=== PATIENT | female | born 1990 | race Caucasian/White ===

== ENCOUNTER 2018-04-29 17:27 | Emergency (ER) | payer BC ==
[2018-04-29 17:39] VITALS: RESP 18
[2018-04-29 18:16] LABS: Basophils % (A) 0 %; Eosinophils # (A) 0.2 k/uL (0-0.7); Eosinophils % (A) 2 %; HCT 39.4 % (34.0-46.0); Lymphocytes # (A) 3.1 k/uL (1.0-4.8); Lymphocytes % (A) 29 %; MCH 28.9 pg (25.0-35.0); MCHC 33.1 g/dL (31.0-37.0); MCV 87.4 fL (80.0-100.0); Mean Platelet Volume 7.3; Monocytes # (A) 0.7 k/uL (0-1.0); Monocytes % (A) 7 %; Neutrophils # (A) 6.5 k/uL (1.3-7.7); Neutrophils % (A) 59 %; Platelet Count 335 k/uL (150-450); RBC 4.51 m/uL (3.80-5.40); RDW 12.6 % (11.5-15.5); WBC 10.9 k/uL (3.8-10.6)
[2018-04-29 18:17] LABS: Appearance,Urine Clear (Clear); Bilirubin,Urine Negative (Negative); Blood,Urine Negative (Negative); Color,Urine Yellow; Glucose,Urine (UA) 4+ (Negative); Ketones,Urine Negative (Negative); Leukocyte Esterase,Urine Negative (Negative); Nitrite,Urine Negative (Negative); Protein,Urine Trace (Negative); Specific Gravity,Urine 1.027 (1.001-1.035); Urobilinogen,Urine <2.0 mg/dL (<2.0)
[2018-04-29 18:25] LABS: ALT 20 U/L (9-52); AST 17 U/L (14-36); Albumin 4.4 g/dL (3.5-5.0); Alkaline Phosphatase 36 U/L (38-126); Anion Gap 12 mmol/L; Blood Urea Nitrogen 13 mg/dL (7-17); Calcium 9.6 mg/dL (8.4-10.2); Carbon Dioxide 26 mmol/L (22-30); Chloride 103 mmol/L (98-107); Glucose 208 mg/dL (74-99); Sodium 141 mmol/L (137-145); Total Bilirubin 0.7 mg/dL (0.2-1.3); Total Protein 7.8 g/dL (6.3-8.2)
[2018-04-29] MEDS ORDERED: SODIUM CHLORIDE 0.9% 1,000 ML IV ONE (19:46)
--- NOTE | 2018-04-29 20:34 | ED ---
Abdominal Pain HPI - General Chief Complaint: Abdominal Pain Stated Complaint: Abd.pain Time Seen by Provider: 04/29/18 19:14 Source: patient, RN notes reviewed, old records reviewed Mode of arrival: ambulatory Limitations: no limitations - History of Present Illness Initial Comments: This is a 28 year old female, presents to ED with left lower abdominal pain. Patient reports she feel bloated and distending. She reports some pain with bowel movements. She has a history of Right ovarian cancer with Right oopherectomy 6 wears ago. She reports she had an US 2 weeks ago, which showed left ovarian cyst. She follows with her OBGYN oncologist on Sunday. She reports that with increased pain, she called OB, and OB wants CT abdomen with contrast to check for recurrent cancer. - Related Data Home Medications Medication Instructions Recorded Confirmed ALPRAZolam [Xanax] 0.5 mg PO BID PRN 04/29/18 04/29/18 Cetirizine HCl [Zyrtec] 10 mg PO DAILY 04/29/18 04/29/18 Empagliflozin [Jardiance] 10 mg PO DAILY 04/29/18 04/29/18 Norgestimate-Ethinyl Estradiol 1 tab PO DAILY 04/29/18 04/29/18 [Tri-Sprintec Tablet] hydrOXYzine HCL [Atarax] 10 mg PO HS PRN 04/29/18 04/29/18 metFORMIN HCL ER [Glucophage Xr] 1,000 mg PO AC-BID 04/29/18 04/29/18 Previous Rx's Medication Instructions Recorded Acetaminophen with Codeine 1 tab PO Q6H PRN 3 Days #12 tab 04/29/18 [Tylenol w/codeine #3] Allergies Allergy/AdvReac Type Severity Reaction Status Date / Time latex Allergy Rash/Hives Verified 04/29/18 20:27 prednisone AdvReac Hallucinati Verified 04/29/18 20:27 ons Review of Systems ROS Statement: Those systems with pertinent positive or pertinent negative responses have been documented in the HPI. ROS Other: All systems not noted in ROS Statement are negative. Past Medical History Past Medical History: Diabetes Mellitus Additional Past Medical History / Comment(s): ovarian cancer History of Any Multi-Drug Resistant Organisms: None Reported Additional Past Surgical History / Comment(s): right ovaries removed, mediport placed and removed Past Psychological History: No Psychological Hx Reported Smoking Status: Never smoker Past Alcohol Use History: Rare Past Drug Use History: None Reported General Exam - General Exam Comments Initial Comments: This is a well appearing 28 year old female, no distress. Limitations: no limitations General appearance: alert, in no apparent distress Head exam: Present: atraumatic, normocephalic, normal inspection Eye exam: Present: normal appearance, PERRL, EOMI. Absent: scleral icterus, conjunctival injection, periorbital swelling ENT exam: Present: normal exam, mucous membranes moist Neck exam: Present: normal inspection. Absent: tenderness, meningismus, lymphadenopathy Respiratory exam: Present: normal lung sounds bilaterally. Absent: respiratory distress, wheezes, rales, rhonchi, stridor Cardiovascular Exam: Present: regular rate, normal rhythm, normal heart sounds. Absent: systolic murmur, diastolic murmur, rubs, gallop, clicks GI/Abdominal exam: Present: soft, tenderness (Left lower quadrant tendernes. ), normal bowel sounds. Absent: distended, guarding, rebound, rigid Extremities exam: Present: normal inspection, full ROM, normal capillary refill. Absent: tenderness, pedal edema, joint swelling, calf tenderness Back exam: Present: normal inspection Neurological exam: Present: alert, oriented X3, CN II-XII intact Psychiatric exam: Present: normal affect, normal mood Skin exam: Present: warm, dry, intact, normal color. Absent: rash Course Vital Signs 04/29/18 04/29/18 04/29/18 17:35 20:03 21:43 Temperature 98.3 F 98 F Pulse Rate 85 87 88 Respiratory 18 18 18 Rate Blood Pressure 151/94 162/99 145/91 O2 Sat by Pulse 100 99 98 Oximetry Medical Decision Making - Medical Decision Making 28 year old female with history of right sided ovarian cancer with hisrory of oophorectomy, presents with distension and left sided abdominal painfor 2 weeks. Lab work is unremarkable. Discussed CT abdomen and pelvis to be ompleted , and the CT shows enlarged pelvic lymphnode, and free fluid in the pelvis. Recurrent tumor can be expected. Disucssed results with patient. Discussed prompt follow up with OBGYN Oncologist. She has an appt on Sunday. DC with short course of pain medication. Discussed return parameters. - Lab Data Result diagrams: 04/29/18 17:55 11/26/18 17:55 Lab Results 04/29/18 04/29/18 04/29/18 Range/Units 17:55 17:55 17:55 WBC 10.9 H (3.8-10.6) k/uL RBC 4.51 (3.80-5.40) m/uL Hgb 13.0 (11.4-16.0) gm/dL Hct 39.4 (34.0-46.0) % MCV 87.4 (80.0-100.0) fL MCH 28.9 (25.0-35.0) pg MCHC 33.1 (31.0-37.0) g/dL RDW 12.6 (11.5-15.5) % Plt Count 335 (150-450) k/uL Neutrophils % 59 % Lymphocytes % 29 % Monocytes % 7 % Eosinophils % 2 % Basophils % 0 % Neutrophils # 6.5 (1.3-7.7) k/uL Lymphocytes # 3.1 (1.0-4.8) k/uL Monocytes # 0.7 (0-1.0) k/uL Eosinophils # 0.2 (0-0.7) k/uL Basophils # 0.0 (0-0.2) k/uL Sodium 141 (137-145) mmol/L Potassium 4.0 (3.5-5.1) mmol/L Chloride 103 (98-107) mmol/L Carbon Dioxide 26 (22-30) mmol/L Anion Gap 12 mmol/L BUN 13 (7-17) mg/dL Creatinine 0.48 L (0.52-1.04) mg/dL Est GFR (CKD-EPI)AfAm >90 (>60 ml/min/1.73 sqM) Est GFR (CKD-EPI)NonAf >90 (>60 ml/min/1.73 sqM) Glucose 208 H (74-99) mg/dL Calcium 9.6 (8.4-10.2) mg/dL Total Bilirubin 0.7 (0.2-1.3) mg/dL AST 17 (14-36) U/L ALT 20 (9-52) U/L Alkaline Phosphatase 36 L (38-126) U/L Total Protein 7.8 (6.3-8.2) g/dL Albumin 4.4 (3.5-5.0) g/dL CA 125 Antigen (0.0-30.1) U/mL Urine Color Yellow Urine Appearance Clear (Clear) Urine pH 7.0 (5.0-8.0) Ur Specific Daphne 1.027 (1.001-1.035) Urine Protein Trace H (Negative) Urine Glucose (UA) 4+ H (Negative) Urine Ketones Negative (Negative) Urine Blood Negative (Negative) Urine Nitrite Negative (Negative) Urine Bilirubin Negative (Negative) Urine Urobilinogen <2.0 (<2.0) mg/dL Ur Leukocyte Esterase Negative (Negative) Urine HCG, Qual (Not Detectd) 04/29/18 04/29/18 Range/Units 17:55 19:20 WBC (3.8-10.6) k/uL RBC (3.80-5.40) m/uL Hgb (11.4-16.0) gm/dL Hct (34.0-46.0) % MCV (80.0-100.0) fL MCH (25.0-35.0) pg MCHC (31.0-37.0) g/dL RDW (11.5-15.5) % Plt Count (150-450) k/uL Neutrophils % % Lymphocytes % % Monocytes % % Eosinophils % % Basophils % % Neutrophils # (1.3-7.7) k/uL Lymphocytes # (1.0-4.8) k/uL Monocytes # (0-1.0) k/uL Eosinophils # (0-0.7) k/uL Basophils # (0-0.2) k/uL Sodium (137-145) mmol/L Potassium (3.5-5.1) mmol/L Chloride (98-107) mmol/L Carbon Dioxide (22-30) mmol/L Anion Gap mmol/L BUN (7-17) mg/dL Creatinine (0.52-1.04) mg/dL Est GFR (CKD-EPI)AfAm (>60 ml/min/1.73 sqM) Est GFR (CKD-EPI)NonAf (>60 ml/min/1.73 sqM) Glucose (74-99) mg/dL Calcium (8.4-10.2) mg/dL Total Bilirubin (0.2-1.3) mg/dL AST (14-36) U/L ALT (9-52) U/L Alkaline Phosphatase (38-126) U/L Total Protein (6.3-8.2) g/dL Albumin (3.5-5.0) g/dL CA 125 Antigen 10.0 (0.0-30.1) U/mL Urine Color Urine Appearance (Clear) Urine pH (5.0-8.0) Ur Specific Daphne (1.001-1.035) Urine Protein (Negative) Urine Glucose (UA) (Negative) Urine Ketones (Negative) Urine Blood (Negative) Urine Nitrite (Negative) Urine Bilirubin (Negative) Urine Urobilinogen (<2.0) mg/dL Ur Leukocyte Esterase (Negative) Urine HCG, Qual Not Detected (Not Detectd) - Radiology Data Radiology results: report reviewed Compared old exam there is now left-sided enlarged. The aortic lymph node. There is mild free fluid in the pelvis. Recurrent tumor should be considered. Normal appendix. Disposition Clinical Impression: Left sided abdominal pain, Left pelvic adnexal fluid collection, Lymph node enlargement Disposition: HOME SELF-CARE Condition: Good Instructions: Abdominal Pain (ED) Additional Instructions: Patient advised to follow-up with primary care physician and oncologist on Sunday. Take The pain medicine as prescribed. Return to emergency department if any alarming signs or symptoms occur. Prescriptions: Acetaminophen with Codeine [Tylenol w/codeine #3] 1 tab PO Q6H PRN 3 Days #12 tab PRN Reason: Pain Is patient prescribed a controlled substance at d/c from ED?: Yes When asked, does pt state using other controlled substances?: Yes If prescribed controlled substance>3 days was MAPS reviewed?: Prescribed <3 Days If opioid is for acute pain is fill amount 7 days or less?: Yes If Rx opioid, was Start Talking consent form obtained?: Yes Referrals: Bakari Villalta MD [Primary Care Provider] - 1-2 days Time of Disposition: 21:15
--- NOTE | 2018-04-29 20:51 | CT ---
EXAMINATION TYPE: CT abdomen pelvis w con DATE OF EXAM: 04/29/2018 COMPARISON: 07/24/2013 HISTORY: LT OVARIAN CYST. HX OVARIAN CANCER ABDOMEN PAIN X2 WEEKS CT DLP: 1002.3 mGycm Automated exposure control for dose reduction was used. TECHNIQUE: Helical acquisition of images was performed from the lung bases through the pelvis. CONTRAST: Performed without Oral Contrast and with IV Contrast, patient injected with 100 mL of Isovue 300. FINDINGS: Lung bases are clear. There is no pleural effusion. Heart size is normal. There is no pericardial eff usion. Liver spleen pancreas appear normal. Gallbladder is contracted. There is no adrenal mass. Kidneys show satisfactory contrast opacification. There is no hydronephrosi s. There is 13 mm left side para-aortic lymph node. There is no mesenteric edema or adenopathy. Appen gareth appears normal. There are surgical clips in the retroperitoneum. Bladder distends smoothly. Uteru s is anteverted. There is mild free fluid in the cul-de-sac. There is no inguinal hernia. There are s urgical clips in the right adnexal region consistent with right-sided oophorectomy. The lumbar spine is intact. Bony pelvis is intact. IMPRESSION: COMPARED TO OLD EXAM THERE IS A NEW LEFT SIDE ENLARGED PARA-AORTIC LYMPH NODE. THERE IS NEW MILD FREE FLUID IN THE PELVIS. RECURRENT TUMOR SHOULD BE CONSIDERED. NORMAL APPENDIX.
[2018-04-29] MEDS ORDERED: KETOROLAC 30 MG/ML 1 ML VIAL IVP STA (21:13)
[2018-04-29] MEDS ORDERED: MORPHINE SULFATE 4 MG/ML SYRINGE IVP STA (21:13)
[2018-04-29 21:44] VITALS: BP 145/91; PULSE 88; TEMP 98
== END 2018-04-29 21:43 | disposition home or self-care (01) ==
LOC: EC 17:27
DX: R59.0 Localized enlarged lymph nodes (principal); R10.30 Lower abdominal pain, unspecified; R14.0 Abdominal distension (gaseous); E11.9 Type 2 diabetes mellitus without complications; Z85.43 Personal history of malignant neoplasm of ovary; Z90.721 Acquired absence of ovaries, unilateral; Z79.3 Long term (current) use of hormonal contraceptives; Z79.84 Long term (current) use of oral hypoglycemic drugs; Z79.899 Other long term (current) drug therapy; Z88.8 Allergy status to other drugs, medicaments and biological substances; Z91.040 Latex allergy status
CPT/HCPCS: 36415; 80053; 86304; 85025; 81003; 81025; 74177; 99284; 96374; 96375; 96361; J2270; J1885; Q9967

== ENCOUNTER 2018-05-31 04:53 | Inpatient (IN) | payer BC ==
[2018-05-31] MEDS ORDERED: SODIUM CHLORIDE 0.9% 1,000 ML IV STA (07:16)
[2018-05-31] MEDS ORDERED: HEPARIN SODIUM,PORCINE 5,000 UNIT/ML 1 ML VIAL IV PRN (07:17)
[2018-05-31] MEDS ORDERED: HEPARIN SODIUM,PORCINE 10,000 UNIT/ML 1 ML VIAL IV ONE (07:17)
[2018-05-31] MEDS ORDERED: HEPARIN SOD,PORK IN 0.45% NACL 25,000 UNIT in 0.45% NACL 1 250ML.BAG IV SCH (07:30)
[2018-05-31 07:38] LABS: Basophils # (A) 0.1 k/uL (0-0.2); Basophils % (A) 1 %; Eosinophils # (A) 0.6 k/uL (0-0.7); Eosinophils % (A) 3 %; HCT 32.1 % (34.0-46.0); Hypochromasia Slight; Lymphocytes # (A) 1.2 k/uL (1.0-4.8); Lymphocytes % (A) 6 %; MCH 27.9 pg (25.0-35.0); MCHC 30.6 g/dL (31.0-37.0); MCV 91.3 fL (80.0-100.0); Mean Platelet Volume 7.2; Monocytes # (A) 1.2 k/uL (0-1.0); Monocytes % (A) 6 %; Neutrophils # (A) 17.7 k/uL (1.3-7.7); Neutrophils % (A) 84 %; Platelet Count 548 k/uL (150-450); RBC 3.52 m/uL (3.80-5.40); RDW 12.8 % (11.5-15.5); WBC 21.2 k/uL (3.8-10.6)
[2018-05-31 07:41] LABS: HGB 9.8 gm/dL (11.4-16.0); Partial Thromboplastin Time 24.1 sec (22.0-30.0); Prothrombin Time 10.5 sec (9.0-12.0)
--- NOTE | 2018-05-31 07:43 | ED ---
General Adult HPI - General Chief complaint: Abdominal Pain Stated complaint: abd pain Source: patient Mode of arrival: ambulatory Limitations: no limitations - History of Present Illness Initial comments: Dictation was produced using [employer] dictation software. please excuse any grammatical, word or spelling errors. Chief Complaint: 20-year-old female past medical history of diabetes, ovarian cancer presents with pleuritic left chest pain status post laparoscopic surgery with tumor excision. History of Present Illness: Patient is 28-year-old female who presents with left -sided chest pain. Patient states that her pain started yesterday. It is sharp and especially worse with deep inspiration. Patient feels mildly diaphoretic. Patient had recent laparoscopic abdominal surgery for [facility]. Patient is on prophylactic thromboembolic medications. Patient states that this pain is different from her initial surgical pain. She states that the surgical pain was more localized to her abdomen. This pain is new. Patient has a history of blood clots. The ROS documented in this emergency department record has been reviewed and confirmed by me. Those systems with pertinent positive or negative responses have been documented in the HPI. All other systems are other negative and/or noncontributory. - Related Data Home Medications Medication Instructions Recorded Confirmed Empagliflozin [Jardiance] 10 mg PO DAILY 04/29/18 05/31/18 metFORMIN HCL ER [Glucophage Xr] 1,000 mg PO AC-BID 04/29/18 05/31/18 Docusate [Colace] 100 mg PO DAILY 05/31/18 05/31/18 Ibuprofen [Motrin] 600 mg PO Q6HR PRN 05/31/18 05/31/18 oxyCODONE HCL [OxyIR] 5 mg PO Q4H PRN 05/31/18 05/31/18 Previous Rx's Medication Instructions Recorded Acetaminophen with Codeine 1 tab PO Q6H PRN 3 Days #12 tab 04/29/18 [Tylenol w/codeine #3] Allergies Allergy/AdvReac Type Severity Reaction Status Date / Time latex Allergy Rash/Hives Verified 05/31/18 07:11 prednisone AdvReac Hallucinati Verified 05/31/18 07:11 ons Review of Systems ROS Statement: Those systems with pertinent positive or pertinent negative responses have been documented in the HPI. ROS Other: All systems not noted in ROS Statement are negative. Past Medical History Past Medical History: Diabetes Mellitus Additional Past Medical History / Comment(s): ovarian cancer History of Any Multi-Drug Resistant Organisms: None Reported Additional Past Surgical History / Comment(s): right ovaries removed, mediport placed and removed Past Psychological History: No Psychological Hx Reported Smoking Status: Never smoker Past Alcohol Use History: Rare Past Drug Use History: None Reported General Exam - General Exam Comments Initial Comments: PHYSICAL EXAM: General Impression: Alert and oriented x3, acute distress secondary to pain HEENT: Normocephalic atraumatic, extra-ocular movements intact, pupils equal and reactive to light bilaterally, mucous membranes moist. Cardiovascular: Heart regular rate and rhythm, S1&S2 audible, no murmurs, rubs or gallops Chest: Lungs clear to auscultation bilaterally, no rhonchi, no wheeze, no rales Abdomen: Bowel sounds present, abdomen soft, non-tender, non-distended, no organomegaly Musculoskeletal: Pulses present and equal in all extremities, no peripheral edema Motor: Power 5/5 bilaterally, no focal deficits noted Neurological: CN II-XII grossly intact, no focal motor or sensory deficits noted Skin: Intact with no visualized rashes Limitations: no limitations Course Vital Signs 05/31/18 05/31/18 05/31/18 04:55 07:19 08:00 Temperature 97.6 F Pulse Rate 121 H 128 H 126 H Respiratory 20 30 H 28 H Rate Blood Pressure 143/80 157/87 161/91 O2 Sat by Pulse 95 92 L 97 Oximetry 05/31/18 05/31/18 05/31/18 08:30 10:00 10:30 Temperature Pulse Rate 130 H 131 H 128 H Respiratory 28 H 20 18 Rate Blood Pressure 159/86 145/80 135/73 O2 Sat by Pulse 98 97 96 Oximetry Medical Decision Making - Medical Decision Making ED course: 28-year-old female with past medical history of ovarian cancer, diabetes status post exhortatory laparotomy with tumor excision of ovarian cancer presents with chief complaint of pleuritic chest pain. Vital signs upon arrival shows heart rate of 121, worse vital signs within acceptable limits. Patient appears comfortable. Given recent history of surgery and medical history of ovarian cancer there is strong clinical suspicion of thromboembolic disease. Patient started on heparin. CT was performed without any clear evidence of pulmonary embolus. Laboratory evaluation shows leukocytosis of 21.2. Hemoglobin 9.8. Thrombocytosis of 548. Coag panel unremarkable. Metabolic panel shows 90 is a 1.5, elevated liver enzymes. CT angios of the chest shows interstitial edema, hematogenous metastatic disease with scattered bilateral pulmonary nodules noted. These appear increased in size since CT 1 month earlier suggest aggressive disease. There is new market hepatomegaly. CT of the abdomen and pelvis was obtained for concerns about intra-abdominal infection secondary to recent surgery. There is worsening ascites. There is no suspicious left pelvic mass. There is no retroperitone there are also findings of partial obstruction or adhesion. EKG shows sinus tachycardia. Given elevated leukocytosis and thrombocytosis. Is concerned of intra-abdominal infection. Patient started on vancomycin and Zosyn. Patient has significant abdominal and chest pain. Patient is given IV analgesics. Given patient's medical history and clinical presentation I believe that patient should be admitted to the hospital. Discussed patient case with Dr. Villalta who is willing to accept admission. I believe the majority of patient's symptoms are secondary to increased tumor burden. Patient given intravenous fluids and magnesium as well. EKG interpretation: Ventricular rate 125, sinus tachycardia,. Interval 126, QS 82, QTC 395 there appears to be some nonspecific EKG changes in the inferior leads. An T-wave inversion in lead 3.. No ID prolongation, no QTC prolongation , no ST or T-wave changes noted. - Lab Data Result diagrams: 05/31/18 06:59 05/31/18 06:59 Lab Results 05/31/18 05/31/18 05/31/18 Range/Units 06:59 06:59 06:59 WBC 21.2 H (3.8-10.6) k/uL RBC 3.52 L (3.80-5.40) m/uL Hgb 9.8 L D (11.4-16.0) gm/dL Hct 32.1 L (34.0-46.0) % MCV 91.3 (80.0-100.0) fL MCH 27.9 (25.0-35.0) pg MCHC 30.6 L (31.0-37.0) g/dL RDW 12.8 (11.5-15.5) % Plt Count 548 H (150-450) k/uL Neutrophils % 84 % Lymphocytes % 6 % Monocytes % 6 % Eosinophils % 3 % Basophils % 1 % Neutrophils # 17.7 H (1.3-7.7) k/uL Lymphocytes # 1.2 (1.0-4.8) k/uL Monocytes # 1.2 H (0-1.0) k/uL Eosinophils # 0.6 (0-0.7) k/uL Basophils # 0.1 (0-0.2) k/uL Hypochromasia Slight PT (9.0-12.0) sec INR (<1.2) APTT (22.0-30.0) sec Sodium 140 (137-145) mmol/L Potassium 4.1 (3.5-5.1) mmol/L Chloride 104 (98-107) mmol/L Carbon Dioxide 25 (22-30) mmol/L Anion Gap 11 mmol/L BUN 11 (7-17) mg/dL Creatinine 0.53 (0.52-1.04) mg/dL Est GFR (CKD-EPI)AfAm >90 (>60 ml/min/1.73 sqM) Est GFR (CKD-EPI)NonAf >90 (>60 ml/min/1.73 sqM) Glucose 143 H (74-99) mg/dL Calcium 11.2 H (8.4-10.2) mg/dL Magnesium 1.5 L (1.6-2.3) mg/dL Total Bilirubin 3.7 H (0.2-1.3) mg/dL AST 172 H (14-36) U/L ALT 59 H (9-52) U/L Alkaline Phosphatase 810 H (38-126) U/L Total Creatine Kinase 280 H (30-135) U/L CK-MB (CK-2) 17.5 H (0.0-2.4) ng/mL CK-MB (CK-2) Rel Index 6.3 Troponin I <0.012 (0.000-0.034) ng/mL Total Protein 6.7 (6.3-8.2) g/dL Albumin 3.3 L (3.5-5.0) g/dL 05/31/18 Range/Units 06:59 WBC (3.8-10.6) k/uL RBC (3.80-5.40) m/uL Hgb (11.4-16.0) gm/dL Hct (34.0-46.0) % MCV (80.0-100.0) fL MCH (25.0-35.0) pg MCHC (31.0-37.0) g/dL RDW (11.5-15.5) % Plt Count (150-450) k/uL Neutrophils % % Lymphocytes % % Monocytes % % Eosinophils % % Basophils % % Neutrophils # (1.3-7.7) k/uL Lymphocytes # (1.0-4.8) k/uL Monocytes # (0-1.0) k/uL Eosinophils # (0-0.7) k/uL Basophils # (0-0.2) k/uL Hypochromasia PT 10.5 (9.0-12.0) sec INR 1.0 (<1.2) APTT 24.1 (22.0-30.0) sec Sodium (137-145) mmol/L Potassium (3.5-5.1) mmol/L Chloride (98-107) mmol/L Carbon Dioxide (22-30) mmol/L Anion Gap mmol/L BUN (7-17) mg/dL Creatinine (0.52-1.04) mg/dL Est GFR (CKD-EPI)AfAm (>60 ml/min/1.73 sqM) Est GFR (CKD-EPI)NonAf (>60 ml/min/1.73 sqM) Glucose (74-99) mg/dL Calcium (8.4-10.2) mg/dL Magnesium (1.6-2.3) mg/dL Total Bilirubin (0.2-1.3) mg/dL AST (14-36) U/L ALT (9-52) U/L Alkaline Phosphatase (38-126) U/L Total Creatine Kinase (30-135) U/L CK-MB (CK-2) (0.0-2.4) ng/mL CK-MB (CK-2) Rel Index Troponin I (0.000-0.034) ng/mL Total Protein (6.3-8.2) g/dL Albumin (3.5-5.0) g/dL Disposition Clinical Impression: Abdominal pain Disposition: ADMITTED IP TO THIS [facility] Condition: Fair Referrals: Bakari Villalta MD [Primary Care Provider] - 1-2 days Decision Time: 11:17
[2018-05-31 07:45] LABS: ALT 59 U/L (9-52); AST 172 U/L (14-36); Albumin 3.3 g/dL (3.5-5.0); Alkaline Phosphatase 810 U/L (38-126); Anion Gap 11 mmol/L; Blood Urea Nitrogen 11 mg/dL (7-17); Calcium 11.2 mg/dL (8.4-10.2); Carbon Dioxide 25 mmol/L (22-30); Chloride 104 mmol/L (98-107); Glucose 143 mg/dL (74-99); Magnesium 1.5 mg/dL (1.6-2.3); Potassium 4.1 mmol/L (3.5-5.1); Sodium 140 mmol/L (137-145); Total Bilirubin 3.7 mg/dL (0.2-1.3); Total Protein 6.7 g/dL (6.3-8.2)
[2018-05-31] MEDS ORDERED: MORPHINE SULFATE 4 MG/ML SYRINGE IVP STA (07:51)
[2018-05-31 07:57] LABS: Creatine Kinase 280 U/L (30-135)
--- NOTE | 2018-05-31 07:57 | XR ---
EXAMINATION TYPE: XR chest 1V portable DATE OF EXAM: 05/31/2018 COMPARISON: Chest x-ray February 18, 2014. HISTORY: Newly diagnosed ovarian cancer with left flank pain. TECHNIQUE: Single frontal view of the chest is obtained. FINDINGS: There is diminished inspiration with central vascular congestion. No pleural effusion or p neumothorax is seen bilaterally. Cardiac silhouette size is upper limits of normal. The osseous stru ctures are intact. IMPRESSION: Diminished inspiration with new mild to moderate central vascular congestion.
--- NOTE | 2018-05-31 08:08 | CT ---
EXAMINATION TYPE: CT angio chest DATE OF EXAM: 05/31/2018 COMPARISON: Prior CT chest July 24, 2013. Prior CT abdomen and pelvis April 29, 2018 HISTORY: Sharp left-sided pain, newly diagnosed ovarian cancer. CT DLP: 251.1 mGycm. Automated Exposure Control for Dose Reduction was Utilized. CONTRAST: CTA scan of the thorax is performed with IV Contrast, patient injected with 69 mL of Isovue 370, pulm onary embolism protocol. MIP Images are created on CT scanner and reviewed. FINDINGS: LUNGS: There is new mild alveolar and interstitial edema bilaterally. There are scattered bilateral p ulmonary nodules involving upper and lower lungs with larger nodules seen in the lung bases. For refe rence roughly 8-12 nodules are seen on axial image 63 measuring up to 10 mm long axis centrally right lung and 11 mm long axis subpleural region left lung. In retrospect they were present on recent CT a bdomen pelvis study and are significantly enlarging in size. There is dependent atelectasis and/or co nsolidation in both bases near diaphragm MEDIASTINUM: There is suboptimal bolus with heterogeneity and near equal contrast in right and left h eart systems but no convincing CT evidence for acute pulmonary embolism. There are enlarged right hi lar confluent lymph nodes near axial image 57 for reference enlarged left hilar lymph nodes are seen. There is enlarged prevascular mass or lymph node measuring 1.8 x 1.4 cm axial image 34. There is sub carinal adenopathy axial image 44.. No cardiomegaly or pericardial effusion is seen. OTHER: Liver is enlarged in size occupying entire upper abdomen increased in size from recent CT, and is overall markedly heterogeneous in appearance. On localizer appears to occupy nearly entire visual ized right abdomen. Slight S-shaped scoliotic curvature is seen. IMPRESSION: 1. Suboptimal study without CT evidence for acute pulmonary embolism. 2. New mild alveolar and interstitial edema, consider fluid overload state. 3. Hematogenous metastatic disease with scattered bilateral pulmonary nodules noted, significant incr ease in size from recent CT one month earlier suggests aggressive disease. Thoracic metastatic adenop athy noted. 4. New marked hepatomegaly may reflect response to chemotherapy. Correlate clinically.
[2018-05-31 08:10] LABS: Creatine Kinase MB 17.5 ng/mL (0.0-2.4); Troponin I <0.012 ng/mL (0.000-0.034)
[2018-05-31] MEDS ORDERED: HYDROmorphone 1 MG/ML 1 ML SYRINGE IVP STA (08:56)
--- NOTE | 2018-05-31 09:30 | CT ---
EXAMINATION TYPE: CT abdomen pelvis w con DATE OF EXAM: 05/31/2018 HISTORY: Pain CT DLP: 616.5mGycm Automated Exposure Control for Dose Reduction was Utilized. CONTRAST: CT scan of the abdomen and pelvis is performed without oral but with IV Contrast, patient injected wi th 80 mL of Isovue 300. COMPARISON: CT abdomen and pelvis from just over one month ago. FINDINGS: LUNG BASES: Please refer to same day CT chest for complete details on the lung bases. LIVER/GB: Liver is markedly heterogeneous appearance and enlarged in size from recent CT, multiple he terogeneous hypodense predominantly subcentimeter lesions are felt present, diffuse metastatic diseas e is suspected. This can be confirmed with imaging guided random biopsy if desired.. PANCREAS: No significant abnormality is seen. SPLEEN: No significant abnormality is seen. ADRENALS: No significant abnormality is seen. KIDNEYS: Symmetric excretion from both kidneys consistent with delayed phased imaging. BOWEL: There are some prominent fecal filled small bowel loops in the midabdomen. Overall there is no suspicious small or large bowel dilatation. Suspect partial obstruction due to adhesions. UTERUS/ADNEXA: Anteverted uterus is redemonstrated. There is interval heterogeneous enlargement of le ft ovary axial image 76, and can be further evaluated with pelvic ultrasound desired. Cannot exclude mass or neoplasm involvement at this level. Surgical clips right axillary are redemonstrated. Moderat e amount of free fluid in pelvic cul-de-sac is increased from prior study axial image 82. Small amoun t of fluid extends anterior superior to the bladder near axial image 72 on current study LYMPH NODES: Surgical clips extend along the right iliac vessels in the pelvis. There is redemonstrat ion of prominent but subcentimeter retroperitoneal lymph nodes enlarged in size from prior exam. Ther e are 2 enlarged left periaortic lymph nodes on current study increase in size from prior study. For reference posterior lymph node measures 1.7 x 1.2 cm on axial image 53 and superior lateral lymph nod e measures 1.4 x 1.3 cm axial image 51. OSSEOUS STRUCTURES: No significant abnormality is seen. OTHER: There is vertical scar marker over the midline of the anterior abdomen above and below umbilic us redemonstrated. IMPRESSION: 1. Worsening small amount of inferior abdominal and pelvic ascites. New suspicious left pelvic mass p ossible adenopathy or left ovarian neoplasm. New suspicious retroperitoneal adenopathy. New hepatome mariah with suspected diffuse hepatic metastatic disease. Overall nonobstructive bowel gas pattern. [place] pect partial obstruction or adhesions involving mid abdominal bowel loops near scar.
[2018-05-31] MEDS ORDERED: PIPERACILLIN-TAZOBACTAM 3.375 GM in SODIUM CHLORIDE 0.9% 100 ML IVPB STA (10:23)
[2018-05-31] MEDS ORDERED: VANCOMYCIN 1,500 MG in SODIUM CHLORIDE 0.9% 250 ML IVPB STA (10:23)
[2018-05-31] MEDS ORDERED: NALOXONE 0.4 MG/ML 1 ML VIAL IV PRN (11:18)
[2018-05-31] MEDS ORDERED: HEPARIN SODIUM,PORCINE 5,000 UNIT/ML 1 ML VIAL SQ SCH (11:30)
[2018-05-31] MEDS: SODIUM CHLORIDE 0.9% 1,000 ML IV SCH ×2 (11:53→23:52)
[2018-05-31] MEDS: MAGNESIUM SULFATE-D5W PMX 1 GM in DEXTROSE/WATER 1 100ML.BAG IVPB SCH ×2 (11:55→14:54)
[2018-05-31 12:36] LABS: Glucose,Whole Blood 116 mg/dL (75-99)
[2018-05-31] MEDS: HYDROmorphone 2 MG TAB PO PRN ×2 (12:41→15:52)
[2018-05-31] MEDS ORDERED: VANCOMYCIN IV PER PHARMACY 1 EACH MISC MISCELLANE ONE (13:00)
[2018-05-31] MEDS: HYDROcodone/APAP 5-325MG 1 EACH TAB PO PRN ×2 (14:54→19:07)
[2018-05-31 15:42] LABS: Appearance,Urine Clear (Clear); Bacteria,Urine Occasional /hpf; Bilirubin,Urine Negative (Negative); Blood,Urine Trace (Negative); Color,Urine Yellow; Glucose,Urine (UA) 4+ (Negative); Granular Casts,Urine 1 /lpf (0); Ketones,Urine 1+ (Negative); Leukocyte Esterase,Urine Negative (Negative); Mucus,Urine Rare /hpf; Nitrite,Urine Negative (Negative); Protein,Urine Trace (Negative); RBC,Urine 7 /hpf (0-5); Specific Gravity,Urine 1.045 (1.001-1.035); Squamous Epithelial Cell,Urine 2 /hpf (0-4); Urobilinogen,Urine <2.0 mg/dL (<2.0); WBC,Urine 9 /hpf (0-5)
[2018-05-31] MEDS: HEPARIN SODIUM,PORCINE 5,000 UNIT/ML 1 ML VIAL SQ SCH ×2 (15:53→23:21)
[2018-05-31 16:03] LABS: Glucose,Whole Blood 119 mg/dL (75-99)
[2018-05-31] MEDS ORDERED: IBUPROFEN 600 MG TAB PO PRN (16:23)
[2018-05-31] MEDS ORDERED: ACET/COD 300 MG/30 MG STARTER PACK 6 TAB BTL PO PRN (16:23)
[2018-05-31] MEDS: metFORMIN 500 MG TAB PO SCH (17:15)
[2018-05-31] MEDS: VANCOMYCIN 1,500 MG in SODIUM CHLORIDE 0.9% 250 ML IVPB SCH (18:07)
[2018-05-31] MEDS: BISACODYL 10 MG SUPP RECTAL PRN (19:26)
[2018-05-31 20:42] LABS: Glucose,Whole Blood 147 mg/dL (75-99)
[2018-06-01] MEDS: HYDROcodone/APAP 5-325MG 1 EACH TAB PO PRN ×3 (01:41→12:49)
[2018-06-01] MEDS: VANCOMYCIN 1,500 MG in SODIUM CHLORIDE 0.9% 250 ML IVPB SCH ×3 (02:52→17:56)
[2018-06-01 05:46] LABS: Glucose,Whole Blood 133 mg/dL (75-99)
[2018-06-01] MEDS: Acetaminophen-Codeine 300-30mg TAB PO PRN ×3 (05:52→17:00)
[2018-06-01] MEDS: metFORMIN 500 MG TAB PO SCH ×2 (06:45→16:58)
[2018-06-01] MEDS: SODIUM CHLORIDE 0.9% 1,000 ML IV SCH (06:47)
[2018-06-01 06:54] LABS: Anion Gap 12 mmol/L; Blood Urea Nitrogen 11 mg/dL (7-17); Calcium 11.6 mg/dL (8.4-10.2); Carbon Dioxide 22 mmol/L (22-30); Chloride 105 mmol/L (98-107); Glucose 135 mg/dL (74-99); Potassium 4.7 mmol/L (3.5-5.1); Sodium 139 mmol/L (137-145)
[2018-06-01 07:32] LABS: Basophils # (A) 0.1 k/uL (0-0.2); Basophils % (A) 1 %; Eosinophils # (A) 0.3 k/uL (0-0.7); Eosinophils % (A) 2 %; HCT 30.6 % (34.0-46.0); HGB 9.5 gm/dL (11.4-16.0); Hypochromasia Marked; Lymphocytes # (A) 1.8 k/uL (1.0-4.8); Lymphocytes % (A) 11 %; MCH 28.8 pg (25.0-35.0); MCHC 30.9 g/dL (31.0-37.0); Mean Platelet Volume 7.7; Monocytes # (A) 1.3 k/uL (0-1.0); Monocytes % (A) 8 %; Neutrophils # (A) 12.3 k/uL (1.3-7.7); Neutrophils % (A) 76 %; Platelet Count 568 k/uL (150-450); RBC 3.29 m/uL (3.80-5.40); RDW 13.2 % (11.5-15.5); WBC 16.2 k/uL (3.8-10.6)
[2018-06-01] MEDS: HEPARIN SODIUM,PORCINE 5,000 UNIT/ML 1 ML VIAL SQ SCH ×3 (07:32→23:12)
[2018-06-01] MEDS: PANTOPRAZOLE 40 MG/10 ML VIAL IV SCH (07:33)
[2018-06-01] MEDS: DOCUSATE 100 MG CAP PO SCH (07:33)
[2018-06-01] MEDS: HYDROmorphone 2 MG TAB PO PRN (07:33)
[2018-06-01] MEDS: NON-FORMULARY DRUG (Empagliflozin [Jardiance] 10 MG) PO SCH (07:34)
[2018-06-01] MEDS: ONDANSETRON 4 MG/2 ML VIAL IVP PRN (11:21)
[2018-06-01 11:45] LABS: Glucose,Whole Blood 138 mg/dL (75-99)
--- NOTE | 2018-06-01 13:43 | P.HPIM ---
History of Present Illness On-call hospitalist covering for Dr. Villalta through the weekend 06/01-. Dr. Villalta will resume the care of the patient on 06/03/2018 This is a pleasant 28 years old female with past medical history of diabetes mellitus, history of ovarian cancer status post laparoscopic excision. Presents now with pleuritic chest pain. Patient states that she had laparoscopic surgery on 05/21/2018 at [facility] in the [place], patient states that they could not perform the full surgery because she has some adhesions in her intestine, at the same time patient has been diagnosed with malignancy. At that time she started to have some pleuritic-like chest pain on the right side of her chest wall, however that is down and currently is 2-3/10 in severity, however a few days ago she started developing the same kind of pain on the left side lateral chest wall, patient describes the pain as sharp that gets worse with deep breath and coughing, patient doesn't have much She only coughs occasionally with no phlegm or blood in it. She is short of breath and currently on nasal cannula. She has also some mild abdominal discomfort at the surgery site associated with some constipation but yesterday she had 2 bowel movement with suppository treatment. She has some nausea but no vomiting. She had negative CTPA for pulmonary embolism however she has some interstitial edema associated with hematogenous metastatic disease with a scattered bilateral pulmonary nodules significant increase in size from 1 month ago suggesting aggressive disease with thoracic metastatic lymphadenopathy. At the same time computed tomography scan of the abdomen shows worsening small amount of pelvic ascites, and no suspicious left pelvic mass with possible adenopathy or left ovarian neoplasm. Within Retroperitoneal adenopathy. No hepatomegaly with suspected hepatic metastasis. On suspect partial obstruction. On admission patient has been tachycardic in 120s, blood pressure is stable, afebrile, saturation 91-98 on 2 L oxygen via [place]. I offered to do serum test to rule out , patient stated that they checked her urine test and that she doesn't want to be checked again. Risks including but not limited to teratogenic effect his been explained to the patient and she verbalized understanding and still refuses to do the test. Review of Systems CONSTITUTIONAL: No fever, no malaise, no fatigue. HEENT: No recent visual problems or hearing problems. Denied any sore throat. CARDIOVASCULAR: No orthopnea, PND, no palpitations, no syncope. PULMONARY: No shortness of breath, no cough, no hemoptysis. GASTROINTESTINAL: No diarrhea, no nausea, no vomiting, no abdominal pain. Normoactive bowel sounds. NEUROLOGICAL: No headaches, no weakness, no numbness. HEMATOLOGICAL: Denies any bleeding or petechiae. GENITOURINARY: Denies any burning micturition, frequency, or urgency. MUSCULOSKELETAL/RHEUMATOLOGICAL: Denies any joint pain, swelling, or any muscle pain. ENDOCRINE: Denies any polyuria or polydipsia. Past Medical History Past Medical History: Diabetes Mellitus Additional Past Medical History / Comment(s): ovarian cancer History of Any Multi-Drug Resistant Organisms: None Reported Additional Past Surgical History / Comment(s): right ovaries removed, mediport placed and removed Additional Past Anesthesia/Blood Transfusion Reaction / Comment(s): Unsure if bolld has been recieved. Past Psychological History: Anxiety, Depression Smoking Status: Never smoker Past Alcohol Use History: Rare Past Drug Use History: Marijuana Medications and Allergies Home Medications Medication Instructions Recorded Confirmed Type Acetaminophen with Codeine 1 tab PO Q6H PRN 3 Days #12 tab 04/29/18 05/31/18 Rx [Tylenol w/codeine #3] Empagliflozin [Jardiance] 10 mg PO DAILY 04/29/18 05/31/18 History metFORMIN HCL ER [Glucophage Xr] 1,000 mg PO AC-BID 04/29/18 05/31/18 History Docusate [Colace] 100 mg PO DAILY 05/31/18 05/31/18 History Ibuprofen [Motrin] 600 mg PO Q6HR PRN 05/31/18 05/31/18 History oxyCODONE HCL [OxyIR] 5 mg PO Q4H PRN 05/31/18 05/31/18 History Allergies Allergy/AdvReac Type Severity Reaction Status Date / Time latex Allergy Rash/Hives Verified 05/31/18 07:11 prednisone AdvReac Hallucinati Verified 05/31/18 07:11 ons Physical Exam Vitals: Vital Signs Temp Pulse Resp BP Pulse Ox 06/01/18 11:55 98.1 F 125 H 24 151/84 96 06/01/18 08:00 97.7 F 125 H 18 147/90 98 06/01/18 05:58 98.2 F 128 H 18 127/76 91 L 06/01/18 04:00 130 H 18 05/31/18 23:52 98.4 F 130 H 20 135/85 92 L 05/31/18 19:53 98.5 F 130 H 20 128/74 95 05/31/18 16:09 98.4 F 132 H 20 150/86 95 Intake and Output 05/31/18 06/01/18 06/01/18 22:59 06:59 14:59 Intake Total 076 548 3170 Output Total 300 Balance 722 794 2201 Intake: IV 100 160 Sodium Chloride 0.9% 1, 100 160 000 ml @ 100 mls/hr IV . Q10H DIANE Rx#:[id number] Intake, IV Titration 1450 Amount Sodium Chloride 0.9% 1, 1200 000 ml @ 100 mls/hr IV . Q10H STA Rx#:[id number] Vancomycin 1,500 mg In 250 Sodium Chloride 0.9% 250 ml @ 125 mls/hr IVPB ONCE STA Rx#:[id number] Oral 240 340 Output: Urine 300 Other: Voiding Method Toilet Toilet # Voids 1 # Bowel Movements 1 Weight 83.6 kg GENERAL: The patient is alert and oriented x3, not in any acute distress. Well developed, well nourished. HEENT: Pupils are round and equally reacting to light. EOMI. No scleral icterus. No conjunctival pallor. Normocephalic, atraumatic. No pharyngeal erythema. No thyromegaly. CARDIOVASCULAR: S1 and S2 present. No murmurs, rubs, or gallops. PULMONARY: Chest is clear to auscultation, no wheezing or crackles. ABDOMEN: Soft, nontender, nondistended, normoactive bowel sounds. No palpable organomegaly. MUSCULOSKELETAL: No joint swelling or deformity. EXTREMITIES: No cyanosis, clubbing, or pedal edema. NEUROLOGICAL: Gross neurological examination did not reveal any focal deficits. SKIN: No rashes. Labs and medication were reviewed.. Continue same treatment. Continue with symptomatic treatment. Resume home medication. Monitor lytes and vitals. DVT and GI prophylaxis. Further recommendations of the clinical course of the patient DVT prophylaxis: Subcutaneous heparin GI Prophylaxis: Pepcid PT/OT: Pending Prognosis is guarded Results CBC & Chem 7: 06/01/18 05:41 06/01/18 05:41 Labs: Abnormal Lab Results - Last 24 Hours (Table) 05/31/18 05/31/18 05/31/18 Range/Units 15:00 16:02 20:41 WBC (3.8-10.6) k/uL RBC (3.80-5.40) m/uL Hgb (11.4-16.0) gm/dL Hct (34.0-46.0) % MCHC (31.0-37.0) g/dL Plt Count (150-450) k/uL Neutrophils # (1.3-7.7) k/uL Monocytes # (0-1.0) k/uL Creatinine (0.52-1.04) mg/dL Glucose (74-99) mg/dL POC Glucose (mg/dL) 119 H 147 H (75-99) mg/dL Calcium (8.4-10.2) mg/dL Ur Specific [place] 1.045 H (1.001-1.035) Urine Protein Trace H (Negative) Urine Glucose (UA) 4+ H (Negative) Urine Ketones 1+ H (Negative) Urine Blood Trace H (Negative) Urine RBC 7 H (0-5) /hpf Urine WBC 9 H (0-5) /hpf Urine Bacteria Occasional H (None) /hpf Urine Mucus Rare H (None) /hpf 06/01/18 06/01/18 06/01/18 Range/Units 05:41 05:41 05:44 WBC 16.2 H (3.8-10.6) k/uL RBC 3.29 L (3.80-5.40) m/uL Hgb 9.5 L (11.4-16.0) gm/dL Hct 30.6 L (34.0-46.0) % MCHC 30.9 L (31.0-37.0) g/dL Plt Count 568 H (150-450) k/uL Neutrophils # 12.3 H (1.3-7.7) k/uL Monocytes # 1.3 H (0-1.0) k/uL Creatinine 0.50 L (0.52-1.04) mg/dL Glucose 135 H (74-99) mg/dL POC Glucose (mg/dL) 133 H (75-99) mg/dL Calcium 11.6 H (8.4-10.2) mg/dL Ur Specific [place] (1.001-1.035) Urine Protein (Negative) Urine Glucose (UA) (Negative) Urine Ketones (Negative) Urine Blood (Negative) Urine RBC (0-5) /hpf Urine WBC (0-5) /hpf Urine Bacteria (None) /hpf Urine Mucus (None) /hpf 06/01/18 Range/Units 11:34 WBC (3.8-10.6) k/uL RBC (3.80-5.40) m/uL Hgb (11.4-16.0) gm/dL Hct (34.0-46.0) % MCHC (31.0-37.0) g/dL Plt Count (150-450) k/uL Neutrophils # (1.3-7.7) k/uL Monocytes # (0-1.0) k/uL Creatinine (0.52-1.04) mg/dL Glucose (74-99) mg/dL POC Glucose (mg/dL) 138 H (75-99) mg/dL Calcium (8.4-10.2) mg/dL Ur Specific [place] (1.001-1.035) Urine Protein (Negative) Urine Glucose (UA) (Negative) Urine Ketones (Negative) Urine Blood (Negative) Urine RBC (0-5) /hpf Urine WBC (0-5) /hpf Urine Bacteria (None) /hpf Urine Mucus (None) /hpf Thrombosis Risk Factor Assmnt - Choose All That Apply Any of the Below Risk Factors Present?: Yes Each Factor Represents 1 point: Obesity (BMI >25) Other Risk Factors: No Other congenital or acquired thrombophilia - If yes, enter type in comment: No Thrombosis Risk Factor Assessment Total Risk Factor Score: 1 Thrombosis Risk Factor Assessment Level: Low Risk Assessment and Plan Assessment: History of ovarian tumor, status post laparoscopic tumor excision and/or biopsy as per history Metastatic disease to the liver, lung and multiple lymph nodes in the abdomen and chest. Severe pleuritic chest pain, secondary to above Diabetes mellitus Possible partial bowel obstruction Leukocytosis Fluid overload Plan: This is a pleasant 28 years old female who presents with chest pain and metastatic covering tumor. Continue with pain management, call oncology and surgery consult. Patient was started with antibiotic on admission. We will call infectious disease for optimization of her treatment. We will stop IV fluids and view of her interstitial edema and fluid overload. Labs and medication were reviewed. Continue same treatment. Continue with symptomatic treatment. Resume home medication. Monitor lytes and vitals. DVT and GI prophylaxis. Further recommendations of the clinical course of the patient DVT prophylaxis: Subcutaneous heparin GI Prophylaxis: Protonix Prognosis is guarded
[2018-06-01 16:24] LABS: Glucose,Whole Blood 134 mg/dL (75-99)
[2018-06-01] MEDS ORDERED: VANCOMYCIN TROUGH DUE 1 EACH MISC MISCELLANE ONE (17:00)
--- NOTE | 2018-06-01 17:45 | P.CONS ---
History of Present Illness - Reason for Consult Consult date: 06/01/18 - Chief Complaint Increasing abdominal pain - History of Present Illness Pleasant 28-year-old female who has a history of ovarian cancer first diagnosed at the age of 22 was cared for in the [place] area where she underwent her original surgery and chemotherapy. She relates that she was doing well at the 5 year checkup however she then developed significant ongoing symptoms with abdominal pain. Workup has been done and there is evidence of recurrence of her ovarian cancer. She was having increasing amounts of discomfort abdominally as well as into the bilateral rib cage area for which she sought care. She's had CAT scans performed showing evidence of rapidly increasing tumor metastasis intra-abdominally, liver as well as lung. She was cared for surgically on 05/21/2018 where tumor resection was attempted but apparently due to adhesions incomplete resection occurred. Since then she's had increasing amounts of abdominal pain and noted increasing pleural pain which is why she sought care in hospital. She's been seen by oncology to consult is awaited. The patient relates that she was to start chemotherapy on 06/18/2018. She is denying severe amounts of fever or chills but does have increasing abdominal pain. She has early satiety with any attempts of eating but is not having active nausea or emesis. She's had some constipation that she relieves with suppositories and an ongoing basis. She denies hematemesis, melena or hematochezia at this time. Her pain is still only modestly controlled currently between a 4 and a 6 most of the time. She does seem aware of the progressive nature of her disease, and the fact that she recurred late. Review of Systems HEENT:Denies headache or acute visual change. Denies sinus or mouth discomforts. Denies neck stiffness or pain. Denies significant oral cavity pain. Denies difficulty on swallowing. Lungs: Denies significant shortness of breath, cough, sputum production, or hemoptysis. Cardiovascular: Denies significant shortness of breath, chest pain, chest wall pain, orthopnea, dyspnea on exertion, syncope Gastrointestinal: Early satiety without true nausea she's not had emesis hematemesis melena or hematochezia she does have constipation and requires suppositories for bowel movement. Musculoskeletal: denies significant myalgias or arthralgias. No new joint swelling. Denies new back pain. Skin: Denies new rash or lesions. No new ulcers or wounds are related.. Neuro: Denies headache or visual change. Denies any new onset weakness or difficulty with ambulation. Denies falls or seizures. Psychiatric:Denies anxiety or depression. Endocrine: Significant fatigue her weight is no been stable and able to ingest supplements. Past Medical History Past Medical History: Diabetes Mellitus Additional Past Medical History / Comment(s): ovarian cancer History of Any Multi-Drug Resistant Organisms: None Reported Additional Past Surgical History / Comment(s): right ovaries removed, mediport placed and removed Additional Past Anesthesia/Blood Transfusion Reaction / Comm: Unsure if bolld has been recieved. Past Psychological History: Anxiety, Depression Additional Psychological History / Comment(s): Lives with her boyfriend. Works out of the home. Does not relate to children. No international travel. The experience. No animals in the home Smoking Status: Never smoker Past Alcohol Use History: Rare Past Drug Use History: Marijuana Medications and Allergies Home Medications and Allergies Comment(s): Current Medications Acetaminophen/Codeine Phosphate (Tylenol #3) 1 each PO Q6H PRN PRN Reason: MODERATE Pain Last Admin: 06/01/18 17:00 Dose: 1 each Hydrocodone Bitart/Acetaminophen ([place] 5-325) 1 each PO Q4HR PRN PRN Reason: Moderate Pain Last Admin: 06/01/18 12:49 Dose: 1 each Bisacodyl (Dulcolax) 10 mg RECTAL DAILY PRN PRN Reason: Constipation Last Admin: 05/31/18 19:26 Dose: 10 mg Docusate Sodium (Colace) 100 mg PO DAILY [facility] Last Admin: 06/01/18 07:33 Dose: 100 mg Heparin Sodium (Porcine) (Heparin) 5,000 unit SQ Q8HR [facility] Last Admin: 06/01/18 16:39 Dose: Not Given Hydromorphone HCl (Dilaudid) 1 mg PO Q3HR PRN PRN Reason: Severe Pain Last Admin: 06/01/18 07:33 Dose: 1 mg Vancomycin HCl 1,500 mg/ (Sodium Chloride) 250 mls @ 125 mls/hr IVPB Q8H [facility] Last Admin: 06/01/18 09:07 Dose: 125 mls/hr Ketorolac Tromethamine (Toradol) 30 mg IVP Q6HR [facility] Stop: 06/05/18 17:31 Metformin HCl (Glucophage) 1,000 mg PO AC-BID [facility] Last Admin: 06/01/18 16:58 Dose: 1,000 mg Naloxone HCl (Narcan) 0.2 mg IV Q2M PRN PRN Reason: Opioid Reversal Non-Formulary Medication (Empagliflozin [Jardiance]) 10 mg PO DAILY [facility] Last Admin: 06/01/18 07:34 Dose: Not Given Ondansetron HCl (Zofran) 4 mg IVP Q6HR PRN PRN Reason: Nausea And Vomiting Last Admin: 06/01/18 11:21 Dose: 4 mg Oxycodone HCl (Oxyir) 5 mg PO Q4H PRN PRN Reason: SEVERE Pain Last Admin: 06/01/18 15:50 Dose: 5 mg Pantoprazole Sodium (Protonix) 40 mg IV DAILY [facility] Last Admin: 06/01/18 07:33 Dose: 40 mg Home Medications Medication Instructions Recorded Confirmed Type Acetaminophen with Codeine 1 tab PO Q6H PRN 3 Days #12 tab 04/29/18 05/31/18 Rx [Tylenol w/codeine #3] Empagliflozin [Jardiance] 10 mg PO DAILY 04/29/18 05/31/18 History metFORMIN HCL ER [Glucophage Xr] 1,000 mg PO AC-BID 04/29/18 05/31/18 History Docusate [Colace] 100 mg PO DAILY 05/31/18 05/31/18 History Ibuprofen [Motrin] 600 mg PO Q6HR PRN 05/31/18 05/31/18 History oxyCODONE HCL [OxyIR] 5 mg PO Q4H PRN 05/31/18 05/31/18 History Allergies Allergy/AdvReac Type Severity Reaction Status Date / Time latex Allergy Rash/Hives Verified 05/31/18 07:11 prednisone AdvReac Hallucinati Verified 05/31/18 07:11 ons Physical Exam Vitals: Vital Signs Temp Pulse Resp BP Pulse Ox 06/01/18 16:00 97.8 F 76 20 109/72 95 06/01/18 11:55 98.1 F 125 H 24 151/84 96 06/01/18 08:00 97.7 F 125 H 18 147/90 98 06/01/18 05:58 98.2 F 128 H 18 127/76 91 L 06/01/18 04:00 130 H 18 05/31/18 23:52 98.4 F 130 H 20 135/85 92 L 05/31/18 19:53 98.5 F 130 H 20 128/74 95 Intake and Output 06/01/18 06/01/18 06/01/18 06:59 14:59 22:59 Intake Total 160 1908 Output Total 300 Balance 160 1608 Intake: IV 160 Sodium Chloride 0.9% 1, 160 000 ml @ 100 mls/hr IV . Q10H [facility] Rx#:[id number] Intake, IV Titration 1450 Amount Sodium Chloride 0.9% 1, 1200 000 ml @ 100 mls/hr IV . Q10H [facility] Rx#:[id number] Vancomycin 1,500 mg In 250 Sodium Chloride 0.9% 250 ml @ 125 mls/hr IVPB ONCE [facility] Rx#:[id number] Oral 458 Output: Urine 300 Other: Voiding Method Toilet # Voids 1 # Bowel Movements 1 Weight 83.6 kg 28-year-old female looks older than her stated age has pallor HEENT: Anicteric conjunctiva are pink and moist nasal mucosa grossly intact without significant lesions, there is no thrush. Poor dentition Neck: The neck is supple without significant lymphadenopathy or thyromegaly. Lungs: Good bilateral air entry without significant crackles or wheezing. She does have ability to have diminished deep inspiration with some few crackles at the bilateral bases Heart: Regular rate and rhythm with an audible S1-S2, no S3 no S4. There is no significant murmur click or rub, PMI was nondisplaced. Abdomen: Mildly distended, is not distinctly painful on exam Extremities: The upper extremities have excellent pulses they are symmetric, no significant petechiae or telangiectasia. No splinter hemorrhages were noted. The lower extremities are free from significant edema. The peripheral pulses were 2+ and symmetric. Neuro: Awake alert oriented to person place and time. There are no acute new gross focal sensory motor deficits. Results CBC & Chem 7: 06/01/18 05:41 06/01/18 05:41 Labs: Abnormal Lab Results - Last 24 Hours (Table) 05/31/18 06/01/18 06/01/18 Range/Units 20:41 05:41 05:41 WBC 16.2 H (3.8-10.6) k/uL RBC 3.29 L (3.80-5.40) m/uL Hgb 9.5 L (11.4-16.0) gm/dL Hct 30.6 L (34.0-46.0) % MCHC 30.9 L (31.0-37.0) g/dL Plt Count 568 H (150-450) k/uL Neutrophils # 12.3 H (1.3-7.7) k/uL Monocytes # 1.3 H (0-1.0) k/uL Creatinine 0.50 L (0.52-1.04) mg/dL Glucose 135 H (74-99) mg/dL POC Glucose (mg/dL) 147 H (75-99) mg/dL Calcium 11.6 H (8.4-10.2) mg/dL 06/01/18 06/01/18 06/01/18 Range/Units 05:44 11:34 16:21 WBC (3.8-10.6) k/uL RBC (3.80-5.40) m/uL Hgb (11.4-16.0) gm/dL Hct (34.0-46.0) % MCHC (31.0-37.0) g/dL Plt Count (150-450) k/uL Neutrophils # (1.3-7.7) k/uL Monocytes # (0-1.0) k/uL Creatinine (0.52-1.04) mg/dL Glucose (74-99) mg/dL POC Glucose (mg/dL) 133 H 138 H 134 H (75-99) mg/dL Calcium (8.4-10.2) mg/dL Laboratory Results WBC 16.2 k/uL (3.8-10.6) H 06/01/18 05:41 RBC 3.29 m/uL (3.80-5.40) L 06/01/18 05:41 Hgb 9.5 gm/dL (11.4-16.0) L 06/01/18 05:41 Hct 30.6 % (34.0-46.0) L 06/01/18 05:41 MCV 93.0 fL (80.0-100.0) 06/01/18 05:41 MCH 28.8 pg (25.0-35.0) 06/01/18 05:41 MCHC 30.9 g/dL (31.0-37.0) L 06/01/18 05:41 RDW 13.2 % (11.5-15.5) 06/01/18 05:41 Plt Count 568 k/uL (150-450) H 06/01/18 05:41 Neutrophils % 76 % 06/01/18 05:41 Lymphocytes % 11 % 06/01/18 05:41 Monocytes % 8 % 06/01/18 05:41 Eosinophils % 2 % 06/01/18 05:41 Basophils % 1 % 06/01/18 05:41 Neutrophils # 12.3 k/uL (1.3-7.7) H 06/01/18 05:41 Lymphocytes # 1.8 k/uL (1.0-4.8) 06/01/18 05:41 Monocytes # 1.3 k/uL (0-1.0) H 06/01/18 05:41 Eosinophils # 0.3 k/uL (0-0.7) 06/01/18 05:41 Basophils # 0.1 k/uL (0-0.2) 06/01/18 05:41 Hypochromasia Marked 06/01/18 05:41 PT 10.5 sec (9.0-12.0) 05/31/18 06:59 INR 1.0 (<1.2) 05/31/18 06:59 APTT 24.1 sec (22.0-30.0) 05/31/18 06:59 Sodium 139 mmol/L (137-145) 06/01/18 05:41 Potassium 4.7 mmol/L (3.5-5.1) 06/01/18 05:41 Chloride 105 mmol/L (98-107) 06/01/18 05:41 Carbon Dioxide 22 mmol/L (22-30) 06/01/18 05:41 Anion Gap 12 mmol/L 06/01/18 05:41 BUN 11 mg/dL (7-17) 06/01/18 05:41 Creatinine 0.50 mg/dL (0.52-1.04) L 06/01/18 05:41 Est GFR (CKD-EPI)AfAm >90 (>60 ml/min/1.73 sqM) 06/01/18 05:41 Est GFR (CKD-EPI)NonAf >90 (>60 ml/min/1.73 sqM) 06/01/18 05:41 Glucose 135 mg/dL (74-99) H 06/01/18 05:41 POC Glucose (mg/dL) 134 mg/dL (75-99) H 06/01/18 16:21 POC Glu Endoscopy Technican Delfina Burger 06/01/18 16:21 Calcium 11.6 mg/dL (8.4-10.2) H 06/01/18 05:41 Magnesium 1.9 mg/dL (1.6-2.3) 06/01/18 05:41 Total Bilirubin 3.7 mg/dL (0.2-1.3) H 05/31/18 06:59 AST 172 U/L (14-36) H 05/31/18 06:59 ALT 59 U/L (9-52) H 05/31/18 06:59 Alkaline Phosphatase 810 U/L (38-126) H 05/31/18 06:59 Total Creatine Kinase 280 U/L (30-135) H 05/31/18 06:59 CK-MB (CK-2) 17.5 ng/mL (0.0-2.4) H 05/31/18 06:59 CK-MB (CK-2) Rel Index 6.3 05/31/18 06:59 Troponin I <0.012 ng/mL (0.000-0.034) 05/31/18 06:59 Total Protein 6.7 g/dL (6.3-8.2) 05/31/18 06:59 Albumin 3.3 g/dL (3.5-5.0) L 05/31/18 06:59 Urine Color Yellow 05/31/18 15:00 Urine Appearance Clear (Clear) 05/31/18 15:00 Urine pH 5.0 (5.0-8.0) 05/31/18 15:00 Ur Specific [place] 1.045 (1.001-1.035) H 05/31/18 15:00 Urine Protein Trace (Negative) H 05/31/18 15:00 Urine Glucose (UA) 4+ (Negative) H 05/31/18 15:00 Urine Ketones 1+ (Negative) H 05/31/18 15:00 Urine Blood Trace (Negative) H 05/31/18 15:00 Urine Nitrite Negative (Negative) 05/31/18 15:00 Urine Bilirubin Negative (Negative) 05/31/18 15:00 Urine Urobilinogen <2.0 mg/dL (<2.0) 05/31/18 15:00 Ur Leukocyte Esterase Negative (Negative) 05/31/18 15:00 Urine RBC 7 /hpf (0-5) H 05/31/18 15:00 Urine WBC 9 /hpf (0-5) H 05/31/18 15:00 Ur Squamous Epith Cells 2 /hpf (0-4) 05/31/18 15:00 Urine Bacteria Occasional /hpf (None) H 05/31/18 15:00 Granular Casts 1 /lpf (0) 05/31/18 15:00 Urine Mucus Rare /hpf (None) H 05/31/18 15:00 Urine HCG, Qual Not Detected (Not Detectd) 05/31/18 15:00 CT scan - abdomen: report reviewed CT scan - chest: report reviewed (Progressive ovarian cancer with increasing amount of tumor) Assessment and Plan (1) Abdominal pain Current Visit: Yes Status: Acute Code(s): R10.9 - UNSPECIFIED ABDOMINAL PAIN SNOMED Code(s): 47801923 (2) Leukocytosis Narrative/Plan: 28-year-old male presents to Hospital with increasing abdominal pain not responding to oral medication she had at home. She is awake status post her laparoscopic converted to open abdominal procedure with failure to completely debulk tumor with evidence of multiple adhesions. Presents with increasing abdominal pain nausea and early satiety and feeling quite poorly overall. Pain control is marginal at is some Toradol to see if that cannot improve her discomforts. As far as antimicrobial therapy pending cultures given the stability leukocytosis and high risk for sepsis piperacillin tazobactam in addition to vancomycin are being utilized. Cultures were further help direct rapid de- escalation if possible. Oncology consult is in process and await further information from them regarding overall treatment plan has been outlined by her primary oncologist in the [place] area. The WBC will be tracked to ensure that it is improving with therapeutic intervention. Current Visit: Yes Status: Acute Code(s): D72.829 - ELEVATED WHITE BLOOD CELL COUNT, UNSPECIFIED SNOMED Code(s): 248675918
[2018-06-01] MEDS: KETOROLAC 30 MG/ML 1 ML VIAL IVP SCH ×2 (17:57→23:12)
[2018-06-01] MEDS ORDERED: PIPERACILLIN-TAZOBACTAM 3.375 GM in SODIUM CHLORIDE 0.9% 100 ML IVPB SCH (18:00)
--- NOTE | 2018-06-01 18:38 | P.GSCN ---
History of Present Illness Consult date: 06/01/18 Reason for Consult: Abdominal pain, nausea, vomiting History of present illness: The patient is a 28-year-old female who presented to the hospital with progressive nausea, vomiting, abdominal pain. She has a history of ovarian cancer. She underwent a laparotomy at [facility] in [place] on May 21. She is unsure whether the intra-abdominal and pelvic disease was on any of the intestinal surfaces. She said she hasn't done well since that time. She's been able to drink okay but has no appetite and can eat very little food. She is on multiple things at home including stool softeners MiraLAX, and other laxatives is only passing very small amounts of all movement. She feels very bloated. Denies problems with the incision. Denies fevers and chills. Review of Systems All systems: negative Past Medical History Past Medical History: Diabetes Mellitus Additional Past Medical History / Comment(s): ovarian cancer History of Any Multi-Drug Resistant Organisms: None Reported Additional Past Surgical History / Comment(s): right ovaries removed, mediport placed and removed Additional Past Anesthesia/Blood Transfusion Reaction / Comm: Unsure if bolld has been recieved. Past Psychological History: Anxiety, Depression Additional Psychological History / Comment(s): Lives with her boyfriend. Works out of the home. Does not relate to children. No international travel. The experience. No animals in the home Smoking Status: Never smoker Past Alcohol Use History: Rare Past Drug Use History: Marijuana Medications and Allergies Home Medications Medication Instructions Recorded Confirmed Type Acetaminophen with Codeine 1 tab PO Q6H PRN 3 Days #12 tab 04/29/18 05/31/18 Rx [Tylenol w/codeine #3] Empagliflozin [Jardiance] 10 mg PO DAILY 04/29/18 05/31/18 History metFORMIN HCL ER [Glucophage Xr] 1,000 mg PO AC-BID 04/29/18 05/31/18 History Docusate [Colace] 100 mg PO DAILY 05/31/18 05/31/18 History Ibuprofen [Motrin] 600 mg PO Q6HR PRN 05/31/18 05/31/18 History oxyCODONE HCL [OxyIR] 5 mg PO Q4H PRN 05/31/18 05/31/18 History Allergies Allergy/AdvReac Type Severity Reaction Status Date / Time latex Allergy Rash/Hives Verified 05/31/18 07:11 prednisone AdvReac Hallucinati Verified 05/31/18 07:11 ons Surgical - Exam Osteopathic Statement: *. No significant issues noted on an osteopathic structural exam other than those noted in the History and Physical/Consult. Vital Signs Temp Pulse Resp BP Pulse Ox 97.6 F 121 H 20 143/80 95 05/31/18 04:55 05/31/18 04:55 05/31/18 04:55 05/31/18 04:55 05/31/18 04:55 - General well developed, well nourished, no distress - Eyes normal ocular movement - Neck trachea midline - Respiratory normal respiratory effort, clear to auscultation absent: wheezing - Cardiovascular Rhythm: regular - Abdomen Abdomen: soft, tender (Mainly incisional), bowel sounds (All sounds are very hypoactive, mild tympany to percussion), wound (The incisions appear intact and covered with Steri-Strips. There is a little bloody drainage noted in the lower midline along with some ecchymosis. No evidence of cellulitis.) Results - Labs 06/01/18 05:41 06/01/18 05:41 Abnormal Lab Results - Last 24 Hours (Table) 05/31/18 06/01/18 06/01/18 Range/Units 20:41 05:41 05:41 WBC 16.2 H (3.8-10.6) k/uL RBC 3.29 L (3.80-5.40) m/uL Hgb 9.5 L (11.4-16.0) gm/dL Hct 30.6 L (34.0-46.0) % MCHC 30.9 L (31.0-37.0) g/dL Plt Count 568 H (150-450) k/uL Neutrophils # 12.3 H (1.3-7.7) k/uL Monocytes # 1.3 H (0-1.0) k/uL Creatinine 0.50 L (0.52-1.04) mg/dL Glucose 135 H (74-99) mg/dL POC Glucose (mg/dL) 147 H (75-99) mg/dL Calcium 11.6 H (8.4-10.2) mg/dL 06/01/18 06/01/1806/01/18 Range/Units 05:44 11:34 16:21 WBC (3.8-10.6) k/uL RBC (3.80-5.40) m/uL Hgb (11.4-16.0) gm/dL Hct (34.0-46.0) % MCHC (31.0-37.0) g/dL Plt Count (150-450) k/uL Neutrophils # (1.3-7.7) k/uL Monocytes # (0-1.0) k/uL Creatinine (0.52-1.04) mg/dL Glucose (74-99) mg/dL POC Glucose (mg/dL) 133 H 138 H 134 H (75-99) mg/dL Calcium (8.4-10.2) mg/dL Diabetes panel 06/01/18 Range/Units 05:41 Sodium 139 (137-145) mmol/L Potassium 4.7 (3.5-5.1) mmol/L Chloride 105 (98-107) mmol/L Carbon Dioxide 22 (22-30) mmol/L BUN 11 (7-17) mg/dL Creatinine 0.50 L (0.52-1.04) mg/dL Glucose 135 H (74-99) mg/dL Calcium 11.6 H (8.4-10.2) mg/dL Calcium panel 06/01/18 Range/Units 05:41 Calcium 11.6 H (8.4-10.2) mg/dL Pituitary panel 06/01/18 Range/Units 05:41 Sodium 139 (137-145) mmol/L Potassium 4.7 (3.5-5.1) mmol/L Chloride 105 (98-107) mmol/L Carbon Dioxide 22 (22-30) mmol/L BUN 11 (7-17) mg/dL Creatinine 0.50 L (0.52-1.04) mg/dL Glucose 135 H (74-99) mg/dL Calcium 11.6 H (8.4-10.2) mg/dL Adrenal panel 06/01/18 Range/Units 05:41 Sodium 139 (137-145) mmol/L Potassium 4.7 (3.5-5.1) mmol/L Chloride 105 (98-107) mmol/L Carbon Dioxide 22 (22-30) mmol/L BUN 11 (7-17) mg/dL Creatinine 0.50 L (0.52-1.04) mg/dL Glucose 135 H (74-99) mg/dL Calcium 11.6 H (8.4-10.2) mg/dL - Imaging CT scan - abdomen: report reviewed, image reviewed Assessment and Plan (1) Ovarian cancer Current Visit: Yes Status: Acute Code(s): C56.9 - MALIGNANT NEOPLASM OF UNSPECIFIED OVARY SNOMED Code(s): 069877271 (2) Abdominal pain Current Visit: Yes Status: Acute Code(s): R10.9 - UNSPECIFIED ABDOMINAL PAIN SNOMED Code(s): 63452420 (3) Leukocytosis Current Visit: Yes Status: Acute Code(s): D72.829 - ELEVATED WHITE BLOOD CELL COUNT, UNSPECIFIED SNOMED Code(s): 575112246 Plan: We'll have the patient sign a consent to obtain a copy of her operative report. She doesn't have a complete obstruction but there are some small bowel changes which should be consistent with a partial obstruction. How to address this would depend whether this is due to cancer or possibly new intra-abdominal adhesions. She is able to tolerate fluids fairly well so I recommend diabetic supplements 3-4 times a day. Continue the aggressive bowel regimen. Some constipation to bulky pelvic disease. I'll reevaluate her tomorrow
[2018-06-01] MEDS: PIPERACILLIN-TAZOBACTAM 3.375 GM in SODIUM CHLORIDE 0.9% 100 ML IVPB SCH (20:49)
[2018-06-01 20:57] LABS: Glucose,Whole Blood 148 mg/dL (75-99)
[2018-06-02] MEDS: VANCOMYCIN 1,500 MG in SODIUM CHLORIDE 0.9% 250 ML IVPB SCH ×3 (02:07→22:23)
[2018-06-02] MEDS: PIPERACILLIN-TAZOBACTAM 3.375 GM in SODIUM CHLORIDE 0.9% 100 ML IVPB SCH ×3 (04:10→19:51)
[2018-06-02] MEDS: Acetaminophen-Codeine 300-30mg TAB PO PRN ×3 (04:11→19:38)
[2018-06-02] MEDS: ONDANSETRON 4 MG/2 ML VIAL IVP PRN (04:18)
[2018-06-02 05:37] LABS: Glucose,Whole Blood 166 mg/dL (75-99)
[2018-06-02] MEDS: metFORMIN 500 MG TAB PO SCH ×2 (06:23→17:34)
[2018-06-02] MEDS: KETOROLAC 30 MG/ML 1 ML VIAL IVP SCH ×4 (06:23→23:24)
[2018-06-02 06:50] LABS: Potassium 5.3 mmol/L (3.5-5.1)
[2018-06-02 06:55] LABS: HCT 29.8 % (34.0-46.0); HGB 8.5 gm/dL (11.4-16.0); Hypochromasia Marked; MCH 26.8 pg (25.0-35.0); MCHC 28.5 g/dL (31.0-37.0); Mean Platelet Volume 7.9; Platelet Count 567 k/uL (150-450); RBC 3.17 m/uL (3.80-5.40); WBC 23.7 k/uL (3.8-10.6)
[2018-06-02] MEDS: PANTOPRAZOLE 40 MG/10 ML VIAL IV SCH (07:46)
[2018-06-02] MEDS: DOCUSATE 100 MG CAP PO SCH (07:46)
[2018-06-02] MEDS: HEPARIN SODIUM,PORCINE 5,000 UNIT/ML 1 ML VIAL SQ SCH ×3 (07:47→23:24)
[2018-06-02] MEDS: NON-FORMULARY DRUG (Empagliflozin [Jardiance] 10 MG) PO SCH (07:49)
[2018-06-02 08:58] LABS: Band Neutrophils % 1 %; Eosinophils # (M) 0.24 k/uL (0-0.7); Lymphocytes # (M) 1.19 k/uL (1.0-4.8); Metamyelocytes # (M) 0.24 k/uL (0); Metamyelocytes % 1 %; Neutrophils % (M) 85 %; Nucleated Red Blood Cells 0 /100 WBC (0-0); Total Cells Counted 200
--- NOTE | 2018-06-02 09:58 | P.CONS ---
History of Present Illness - Reason for Consult Consult date: 06/01/18 Hx: Ovarian Cancer, Likely recurrent Malignancy on Uterine wall Requesting physician: Jian E Sheet - Chief Complaint Shortness of Breath and side, chest pain - History of Present Illness Lizzie is a pleasant 28 year old female who has known history of Ovarian Cancer diagnosed back in July 2012 with Grade 2 endometrioid Ovarian carcinoma who underwentexploratory laparotomy, right ovarian cystectomy and lysis of ahesions on June 06, 2012. Because of residual tumor she underwent adjuvant chemotherapy with 6 cycles of Taxol and Carboplatin, she overall tolerated this well and has remained on surveillance since recently. She was found to have a suspicious cyst on her left ovary and underwent exploratory lap , although apparently there was evidence of recurrence uterus. Because of this recommendations were made for karina-adjuvant treatment with chemotherapy and then total abdominal hysterectomy. She previously coat tailor chemotherapy with Dr. Aguilar. Her recent and previous surgical interventions performed by Dr. Prince out of [facility] We will obtain these records. She presented to [facility] with complaints of increased shortness of breath and perpheral chest pain, worse with deep breathes. CTA was performed and negative for acute thrombus but unfortunetly did appear concerning for likely metastatic disease to lungs. Her Recent surgery an identification of recurrence was on 05/21/18. Review of Systems A 14 point review of system was assessed and completed and all negative except HPI Past Medical History Past Medical History: Diabetes Mellitus Additional Past Medical History / Comment(s): ovarian cancer History of Any Multi-Drug Resistant Organisms: None Reported Additional Past Surgical History / Comment(s): right ovaries removed, mediport placed and removed Additional Past Anesthesia/Blood Transfusion Reaction / Comm: Unsure if bolld has been recieved. Past Psychological History: Anxiety, Depression Additional Psychological History / Comment(s): Lives with her boyfriend. Works out of the home. Does not relate to children. No international travel. The experience. No animals in the home Smoking Status: Never smoker Past Alcohol Use History: Rare Past Drug Use History: Marijuana Medications and Allergies Home Medications Medication Instructions Recorded Confirmed Type Acetaminophen with Codeine 1 tab PO Q6H PRN 3 Days #12 tab 04/29/18 05/31/18 Rx [Tylenol w/codeine #3] Empagliflozin [Jardiance] 10 mg PO DAILY 04/29/18 05/31/18 History metFORMIN HCL ER [Glucophage Xr] 1,000 mg PO AC-BID 04/29/18 05/31/18 History Docusate [Colace] 100 mg PO DAILY 05/31/18 05/31/18 History Ibuprofen [Motrin] 600 mg PO Q6HR PRN 05/31/18 05/31/18 History oxyCODONE HCL [OxyIR] 5 mg PO Q4H PRN 05/31/18 05/31/18 History Allergies Allergy/AdvReac Type Severity Reaction Status Date / Time latex Allergy Rash/Hives Verified 05/31/18 07:11 prednisone AdvReac Hallucinati Verified 05/31/18 07:11 ons Physical Exam Vitals: Vital Signs Temp Pulse Resp BP Pulse Ox 06/01/18 20:00 98.1 F 124 H 20 126/72 96 06/01/18 16:00 97.8 F 76 20 109/72 95 06/01/18 11:55 98.1 F 125 H 24 151/84 96 06/01/18 08:00 97.7 F 125 H 18 147/90 98 06/01/18 05:58 98.2 F 128 H 18 127/76 91 L 06/01/18 04:00 130 H 18 05/31/18 23:52 98.4 F 130 H 20 135/85 92 L Intake and Output 06/01/18 06/01/18 06/01/18 06:59 14:59 22:59 Intake Total 160 1908 0 Output Total 300 Balance 160 1608 0 Intake: IV 160 0 Sodium Chloride 0.9% 1, 160 0 000 ml @ 100 mls/hr IV . Q10H [facility] Rx#:[id number] Intake, IV Titration 1450 Amount Sodium Chloride 0.9% 1, 1200 000 ml @ 100 mls/hr IV . Q10H [facility] Rx#:[id number] Vancomycin 1,500 mg In 250 Sodium Chloride 0.9% 250 ml @ 125 mls/hr IVPB ONCE [facility] Rx#:[id number] Oral 458 Output: Urine 300 Other: Voiding Method Toilet Toilet # Voids 1 # Bowel Movements 1 Weight 83.6 kg - Constitutional General appearance: cooperative, mild distress - EENT Eyes: EOMI, PERRLA, normal appearance ENT: NA/AT, normal oropharynx - Neck No cervical adenopathy supple Neck: normal ROM - Respiratory Respiratory: bilateral: diminished (increased effort noted), wheezing - Cardiovascular Rhythm: regular Heart sounds: normal: S1, S2 - Gastrointestinal Evidence of recent surgery incision cdi no erythema General gastrointestinal: distended, umbilical hernia - Integumentary Integumentary: pale - Neurologic Neurologic: CNII-XII intact - Musculoskeletal Musculoskeletal: generalized weakness, strength equal bilaterally - Psychiatric Psychiatric: A&O x's 3, appropriate affect, intact judgment & insight Results CBC & Chem 7: 06/02/18 05:30 06/02/18 05:30 Labs: Abnormal Lab Results - Last 24 Hours (Table) 06/01/18 06/01/18 06/01/18 Range/Units 05:41 05:41 05:44 WBC 16.2 H (3.8-10.6) k/uL RBC 3.29 L (3.80-5.40) m/uL Hgb 9.5 L (11.4-16.0) gm/dL Hct 30.6 L (34.0-46.0) % MCHC 30.9 L (31.0-37.0) g/dL Plt Count 568 H (150-450) k/uL Neutrophils # 12.3 H (1.3-7.7) k/uL Monocytes # 1.3 H (0-1.0) k/uL Creatinine 0.50 L (0.52-1.04) mg/dL Glucose 135 H (74-99) mg/dL POC Glucose (mg/dL) 133 H (75-99) mg/dL Calcium 11.6 H (8.4-10.2) mg/dL 06/01/18 06/01/18 Range/Units 11:34 16:21 WBC (3.8-10.6) k/uL RBC (3.80-5.40) m/uL Hgb (11.4-16.0) gm/dL Hct (34.0-46.0) % MCHC (31.0-37.0) g/dL Plt Count (150-450) k/uL Neutrophils # (1.3-7.7) k/uL Monocytes # (0-1.0) k/uL Creatinine (0.52-1.04) mg/dL Glucose (74-99) mg/dL POC Glucose (mg/dL) 138 H 134 H (75-99) mg/dL Calcium (8.4-10.2) mg/dL CT scan - abdomen: report reviewed CT scan - chest: report reviewed CT scan - pelvis: report reviewed Assessment and Plan Plan: Assessment and Recommendations: 1. Recurrent Metastatic Likely Ovarian Cancer: - Prior diagnosis Right Ovary in 2012 treated with Tumor resection and Right oopherectomy along with 6 cycles of adjuvant carboplatin and Taxol - Will obtain pathology from Dr. Prince [facility] - Increased Pulmonary nodules compared to one month prior concerning for aggressive nature - Recent ex lap 05/21 - will need MP and karina-adjvant chemotherapy as soon as surgically cleared (at minimum one more week 2. Acute Dyspnea - - Likely related to increased metastatic disease Physician Attestation: mI have completed the full history and physical of this patient and agree with above dictation by Francisca Chu NP Dictated as a scribe
[2018-06-02 11:20] LABS: Glucose,Whole Blood 136 mg/dL (75-99)
[2018-06-02] MEDS: SODIUM CHLORIDE 0.9% 1,000 ML IV SCH (12:22)
--- NOTE | 2018-06-02 13:41 | P.PN ---
Subjective Progress Note Date: 06/02/18 The patient seen on rounds. Her pain is under better control today. She feels as though she needs to have a bowel movement. She was able to eat more for dinner last night and today. Objective - Vital Signs Vital signs: Vital Signs Temp 96.7 F L 06/02/18 12:29 Pulse 115 H 06/02/18 12:29 Resp 20 06/02/18 12:29 BP 121/61 06/02/18 12:29 Pulse Ox 95 06/02/18 12:29 Intake & Output 06/01/18 06/02/18 06/02/18 18:59 06:59 18:59 Intake Total 1908 0 1115 Output Total 300 Balance 1608 0 1115 Weight 85.1 kg Intake: IV 0 Sodium Chloride 0.9% 1, 0 000 ml @ 100 mls/hr IV . Q10H [facility] Rx#:[id number] Intake, IV Titration 1450 875 Amount Piperacillin-Tazobactam 3 100 .375 gm In Sodium Chloride 0.9% 100 ml @ 25 mls/hr IVPB Q8H [facility] Rx#: [id number] Sodium Chloride 0.9% 1, 1200 000 ml @ 100 mls/hr IV . Q10H [facility] Rx#:[id number] Sodium Chloride 0.9% 1, 525 000 ml @ 75 mls/hr IV . [id number] [facility] Rx#:[id number] Vancomycin 1,500 mg In 250 Sodium Chloride 0.9% 250 ml @ 125 mls/hr IVPB ONCE [facility] Rx#:[id number] Vancomycin 1,500 mg In 250 Sodium Chloride 0.9% 250 ml @ 125 mls/hr IVPB Q8H [facility] Rx#:[id number] Oral 458 240 Output: Urine 300 Other: Voiding Method Toilet Toilet Toilet # Voids 1 1 # Bowel Movements 1 - Constitutional Constitutional Comment(s): Appears pale General appearance: Present: cooperative, no acute distress - Gastrointestinal General gastrointestinal: Present: decreased bowel sounds, soft Localized gastrointestinal: surgical scar: diffuse (Incision his have a little ecchymosis but no evidence of cellulitis) - Labs CBC & Chem 7: 06/02/18 05:30 06/02/18 05:30 Labs: Abnormal Lab Results - Last 24 Hours (Table) 06/01/18 06/01/18 06/02/18 Range/Units 16:21 20:55 05:30 WBC (3.8-10.6) k/uL RBC (3.80-5.40) m/uL Hgb (11.4-16.0) gm/dL Hct (34.0-46.0) % MCHC (31.0-37.0) g/dL Plt Count (150-450) k/uL Neutrophils # (Manual) (1.3-7.7) k/uL Monocytes # (Manual) (0-1.0) k/uL Metamyelocytes # (Man) (0) k/uL Sodium 135 L (137-145) mmol/L Potassium 5.3 H (3.5-5.1) mmol/L BUN 23 H (7-17) mg/dL Creatinine 1.11 H (0.52-1.04) mg/dL Glucose 165 H (74-99) mg/dL POC Glucose (mg/dL) 134 H 148 H (75-99) mg/dL Calcium 12.0 H (8.4-10.2) mg/dL 06/02/18 06/02/18 06/02/18 Range/Units 05:30 05:36 11:13 WBC 23.7 H (3.8-10.6) k/uL RBC 3.17 L (3.80-5.40) m/uL Hgb 8.5 L (11.4-16.0) gm/dL Hct 29.8 L (34.0-46.0) % MCHC 28.5 L (31.0-37.0) g/dL Plt Count 567 H (150-450) k/uL Neutrophils # (Manual) 20.30 H (1.3-7.7) k/uL Monocytes # (Manual) 1.90 H (0-1.0) k/uL Metamyelocytes # (Man) 0.24 H (0) k/uL Sodium (137-145) mmol/L Potassium (3.5-5.1) mmol/L BUN (7-17) mg/dL Creatinine (0.52-1.04) mg/dL Glucose (74-99) mg/dL POC Glucose (mg/dL) 166 H 136 H (75-99) mg/dL Calcium (8.4-10.2) mg/dL Assessment and Plan (1) Ovarian cancer Current Visit: Yes Status: Acute Code(s): C56.9 - MALIGNANT NEOPLASM OF UNSPECIFIED OVARY SNOMED Code(s): 396588945 (2) Abdominal pain Current Visit: Yes Status: Acute Code(s): R10.9 - UNSPECIFIED ABDOMINAL PAIN SNOMED Code(s): 89691006 (3) Leukocytosis Current Visit: Yes Status: Acute Code(s): D72.829 - ELEVATED WHITE BLOOD CELL COUNT, UNSPECIFIED SNOMED Code(s): 479244854 Plan: I personally reviewed the operative report from May 21 done at [facility] in [place]. She had extensive adhesiolysis. There is no obvious tumor on the bowel itself. The adnexal mass was tightly adherent to the mesentery of the bowel and would have required extensive bowel resection to remove the mass. I think her partial bowel obstruction is likely due to the extensive adhesio lysis. At this point I wouldn't recommend anything further other than following a low fiber diet. Continue medical care for her advanced cancer. I'll follow her up during her stay here to make sure she doesn't develop further obstructive symptoms.
--- NOTE | 2018-06-02 14:32 | P.PN ---
Subjective Progress Note Date: 06/02/18 Principal diagnosis: Metastatic Recurrent Ovarian Cancer Still with complaints of discomfort, tachycardic (although improved). She is unable to urinate, she is pale, feels weak, increased abdominal pain, distention and moderate increase respiratory effort. no bowel movement. Headaches this am and nausea. She complains of vaginal yeast infection although with her increased LFTS and recent recurrent I am concerned to order anti fungal or intravaginal without further assessment by LIBRARY SERVICES COORDINATOR. Objective - Vital Signs Vital signs: Vital Signs Temp 96.7 F L 06/02/18 12:29 Pulse 115 H 06/02/18 12:29 Resp 20 06/02/18 12:29 BP 121/61 06/02/18 12:29 Pulse Ox 95 06/02/18 12:29 Intake & Output 06/01/18 06/02/18 06/02/18 18:59 06:59 18:59 Intake Total 1908 0 1115 Output Total 300 Balance 1608 0 1115 Weight 85.1 kg Intake: IV 0 Sodium Chloride 0.9% 1, 0 000 ml @ 100 mls/hr IV . Q10H [facility] Rx#:[id number] Intake, IV Titration 1450 875 Amount Piperacillin-Tazobactam 3 100 .375 gm In Sodium Chloride 0.9% 100 ml @ 25 mls/hr IVPB Q8H [facility] Rx#: [id number] Sodium Chloride 0.9% 1, 1200 000 ml @ 100 mls/hr IV . Q10H [facility] Rx#:[id number] Sodium Chloride 0.9% 1, 525 000 ml @ 75 mls/hr IV . [id number] [facility] Rx#:[id number] Vancomycin 1,500 mg In 250 Sodium Chloride 0.9% 250 ml @ 125 mls/hr IVPB ONCE [facility] Rx#:[id number] Vancomycin 1,500 mg In 250 Sodium Chloride 0.9% 250 ml @ 125 mls/hr IVPB Q8H [facility] Rx#:[id number] Oral 458 240 Output: Urine 300 Other: Voiding Method Toilet Toilet Toilet # Voids 1 1 # Bowel Movements 1 - Exam - Constitutional General appearance: cooperative, mild distress - EENT Eyes: EOMI, PERRLA, normal appearance ENT: NA/AT, normal oropharynx - Neck No cervical adenopathy supple Neck: normal ROM - Respiratory Respiratory: bilateral: diminished (increased effort noted), wheezing - Cardiovascular Rhythm: regular Heart sounds: normal: S1, S2 - Gastrointestinal Evidence of recent surgery incision cdi no erythema General gastrointestinal: distended, umbilical hernia - Integumentary Integumentary: pale - Neurologic Neurologic: CNII-XII intact - Musculoskeletal Musculoskeletal: generalized weakness, strength equal bilaterally - Psychiatric Psychiatric: A&O x's 3, appropriate affect, intact judgment & insig - Labs CBC & Chem 7: 06/02/18 05:30 06/02/18 05:30 Labs: Abnormal Lab Results - Last 24 Hours (Table) 06/01/18 06/01/18 06/02/18 Range/Units 16:21 20:55 05:30 WBC (3.8-10.6) k/uL RBC (3.80-5.40) m/uL Hgb (11.4-16.0) gm/dL Hct (34.0-46.0) % MCHC (31.0-37.0) g/dL Plt Count (150-450) k/uL Neutrophils # (Manual) (1.3-7.7) k/uL Monocytes # (Manual) (0-1.0) k/uL Metamyelocytes # (Man) (0) k/uL Sodium 135 L (137-145) mmol/L Potassium 5.3 H (3.5-5.1) mmol/L BUN 23 H (7-17) mg/dL Creatinine 1.11 H (0.52-1.04) mg/dL Glucose 165 H (74-99) mg/dL POC Glucose (mg/dL) 134 H 148 H (75-99) mg/dL Calcium 12.0 H (8.4-10.2) mg/dL 06/02/18 06/02/18 06/02/18 Range/Units 05:30 05:36 11:13 WBC 23.7 H (3.8-10.6) k/uL RBC 3.17 L (3.80-5.40) m/uL Hgb 8.5 L (11.4-16.0) gm/dL Hct 29.8 L (34.0-46.0) % MCHC 28.5 L (31.0-37.0) g/dL Plt Count 567 H (150-450) k/uL Neutrophils # (Manual) 20.30 H (1.3-7.7) k/uL Monocytes # (Manual) 1.90 H (0-1.0) k/uL Metamyelocytes # (Man) 0.24 H (0) k/uL Sodium (137-145) mmol/L Potassium (3.5-5.1) mmol/L BUN (7-17) mg/dL Creatinine (0.52-1.04) mg/dL Glucose (74-99) mg/dL POC Glucose (mg/dL) 166 H 136 H (75-99) mg/dL Calcium (8.4-10.2) mg/dL Assessment and Plan Plan: Assessment and Recommendations: 1. Recurrent Metastatic Likely Ovarian Cancer: New Liver and Lung Metastasis - Prior diagnosis Right Ovary in 2012 treated with Tumor resection and Right oopherectomy along with 6 cycles of adjuvant carboplatin and Taxol - Will obtain pathology from Dr. Suresh Acosta Prior genetric testing on blood negative for BRCAA, rec sending recent path for tissue BRCA - Increased Pulmonary nodules compared to one month prior concerning for aggressive nature - Recent ex lap 05/21 - will need MP and karina-adjvant chemotherapy as soon as surgically cleared (at minimum one more week) - Full re-staging bone scan and MRI brain ordered, mild increase in Renal function, IV fluids started. may receive 500cc bolus after scans. - Recheck Ca 125 2. Acute Dyspnea - - Likely related to increased metastatic disease in lungs, liver, and abdominal ascites. 3. Normocytic Anemia - Likely from Malignancy but possible component of Iron deficiency with recent surgery - Will Check Iron labs and B12 and supp if needed - No transfusion needed today, Transfuse less than 7 4. Liver Transiminitis, Hyperbilirubinemia - Likely related to new diffuse hepatic metastasis - Recheck Hepatic Function and monitor. 5. Inability to urinate: - Urology Consulted 6. Abdominal Ascites: Worsening - Inability to urinate and no bowel movement - Diagnostic and Therapeutic paracentesis, consult to IR Placed 7. COmplaints of Vaginal Yeast Infection: - With increased liver function and known Ovarian Cancer recurrence would like LIBRARY SERVICES COORDINATOR to evaluate prior to treatment with intravaginal or Antifungals 8. Constipation: - Increase Bowel Regimen 9. Anxiety: - Xanax PRN I have had a long discussion with patient related to CT scans in compared to prior and the concern for aggressiveness. She stated Dr. Prince told her the liver was likely fatty and lung nodules probably not metastatic disease, although with the recent growth and quick growth concern for aggressive malignant process. will follow. all patients questions answered and understanding stated
[2018-06-02 15:39] LABS: Albumin 3.1 g/dL (3.5-5.0); Bilirubin, Conjugated 0.9 mg/dL (0.0-0.3); Bilirubin, Delta 1.4 mg/dL (0.0-0.2); Bilirubin,Unconjugated 0.6 mg/dL (0.0-1.1); Total Bilirubin 2.9 mg/dL (0.2-1.3); Total Protein 6.3 g/dL (6.3-8.2)
[2018-06-02] MEDS: BISACODYL 10 MG SUPP RECTAL PRN (15:53)
[2018-06-02] MEDS: POLYETHYLENE GLYCOL 3350 17 GM POWD.PACK PO SCH ×2 (16:07→19:51)
[2018-06-02] MEDS: ALPRAZolam 0.25 MG TAB PO PRN (16:23)
[2018-06-02 16:28] LABS: Glucose,Whole Blood 114 mg/dL (75-99)
--- NOTE | 2018-06-02 17:20 | US ---
EXAMINATION TYPE: US abdomen comp/pelvis limited DATE OF EXAM: 06/02/2018 COMPARISON: CT CLINICAL HISTORY: assess liver and abdominal ascites.bladder. ABD pain, distention, H/O ovarian CA, p t states unable to urinate x 24 hours EXAM MEASUREMENTS: Liver Length: 26.9 cm Gallbladder Wall: 0.3 cm CBD: 0.3 cm Spleen: 14.5 cm Right Kidney: 12.0 x 5.3 x 6.1 cm Left Kidney: 10.3 x 5.5 x 4.3 cm Bladder Volume: 0.8 mL Pancreas: Obscured by bowel gas Liver: Enlarged, grossly heterogeneous with mass-like appearance scattered throughout Gallbladder: wnl CBD: wnl Spleen: Enlarged Right Kidney: wnl Left Kidney: Difficult to visualize due to overlying bowel gas Upper IVC: wnl Abd Aorta: wnl, distal portion gassed out Bladder: Abnormally not distended given pt's history that she has not voided in approx. 24 hours No sizable fluid/ascites pocket visualized IMPRESSION: No ascites fluid identified. Heterogeneity in the liver consistent with metastatic diseas e. No renal obstruction. No dilated ducts.
[2018-06-02] MEDS ORDERED: SODIUM CHLORIDE 0.9% 1,000 ML IV ONE (19:23)
[2018-06-02] MEDS: SENNOSIDES-DOCUSATE SODIUM 1 EACH TAB PO SCH (19:51)
[2018-06-02 20:41] LABS: Glucose,Whole Blood 139 mg/dL (75-99)
[2018-06-02] MEDS: HYDROmorphone 2 MG TAB PO PRN (22:31)
[2018-06-03] MEDS: SODIUM CHLORIDE 0.9% 1,000 ML IV SCH ×2 (02:21→16:56)
[2018-06-03] MEDS: PIPERACILLIN-TAZOBACTAM 3.375 GM in SODIUM CHLORIDE 0.9% 100 ML IVPB SCH ×3 (04:45→22:29)
[2018-06-03 05:54] LABS: Glucose,Whole Blood 113 mg/dL (75-99)
[2018-06-03] MEDS: metFORMIN 500 MG TAB PO SCH (06:25)
[2018-06-03] MEDS: KETOROLAC 30 MG/ML 1 ML VIAL IVP SCH ×2 (06:25→11:35)
--- NOTE | 2018-06-03 08:13 | P.PN ---
Subjective Progress Note Date: 06/03/18 Principal diagnosis: This continue present 28-year-old white female essentially admitted for ovarian cancer and systemic inflammatory response. She is complaining of significant anuria dysuria. The patient states she had a bowel movement and appetite is fairly nominal but not great. No fever or chills. She states significant fatigue. Objective - Vital Signs Vital signs: Vital Signs Temp 98.4 F 06/03/18 04:00 Pulse 117 H 06/03/18 04:00 Resp 18 06/03/18 04:00 BP 125/78 06/03/18 04:00 Pulse Ox 96 06/03/18 04:00 Intake & Output 06/02/18 06/03/18 06/03/18 18:59 06:59 18:59 Intake Total 1315 1600 Output Total 90 Balance 1225 1600 Weight 88.7 kg Intake: Intake, IV Titration 875 1600 Amount Piperacillin-Tazobactam 3 100 .375 gm In Sodium Chloride 0.9% 100 ml @ 25 mls/hr IVPB Q8H [facility] Rx#: [id number] Sodium Chloride 0.9% 1, 525 000 ml @ 75 mls/hr IV . [id number] [facility] Rx#:[id number] Sodium Chloride 0.9% 1, 1600 000 ml @ 999 mls/hr IV . Q1H1M [facility] Rx#:[id number] Vancomycin 1,500 mg In 250 Sodium Chloride 0.9% 250 ml @ 125 mls/hr IVPB Q8H [facility] Rx#:[id number] Oral 440 Output: Urine 90 Other: Voiding Method Toilet Toilet # Voids 1 - Constitutional General appearance: Present: average body habitus - EENT Eyes: Absent: abnormal pupil - Neck Neck: Absent: lymphadenopathy - Respiratory Respiratory: bilateral: diminished - Cardiovascular Heart rate: 104 Rhythm: regular Heart sounds: normal: S1, S2 Abnormal Heart Sounds: Absent: S3 Gallop - Gastrointestinal General gastrointestinal: Present: distended, soft, tenderness - Neurologic Neurologic: Present: CNII-XII intact - Labs CBC & Chem 7: 06/02/18 05:30 06/02/18 05:30 Labs: Abnormal Lab Results - Last 24 Hours (Table) 06/02/18 06/02/18 06/02/18 Range/Units 05:30 05:30 11:13 Neutrophils # (Manual) 20.30 H (1.3-7.7) k/uL Monocytes # (Manual) 1.90 H (0-1.0) k/uL Metamyelocytes # (Man) 0.24 H (0) k/uL POC Glucose (mg/dL) 136 H (75-99) mg/dL Total Bilirubin 2.9 H (0.2-1.3) mg/dL Conjugated Bilirubin 0.9 H (0.0-0.3) mg/dL Delta Bilirubin 1.4 H (0.0-0.2) mg/dL AST 175 H (14-36) U/L ALT 56 H (9-52) U/L Alkaline Phosphatase 576 H (38-126) U/L Albumin 3.1 L (3.5-5.0) g/dL 06/02/18 06/02/18 06/03/18 Range/Units 16:20 20:40 05:53 Neutrophils # (Manual) (1.3-7.7) k/uL Monocytes # (Manual) (0-1.0) k/uL Metamyelocytes # (Man) (0) k/uL POC Glucose (mg/dL) 114 H 139 H 113 H (75-99) mg/dL Total Bilirubin (0.2-1.3) mg/dL Conjugated Bilirubin (0.0-0.3) mg/dL Delta Bilirubin (0.0-0.2) mg/dL AST (14-36) U/L ALT (9-52) U/L Alkaline Phosphatase (38-126) U/L Albumin (3.5-5.0) g/dL Assessment and Plan Plan: Metastatic ovarian cancer. Worsening ascites. Yeast vaginitis. Dr. Delacruz has stated that a one-time dose Diflucan, if accepted will be supple. Urology will be consulted for dysuria decreased urinary output. Check CBC and CMP in a.m. Prognosis is guarded secondary term metastatic appearance. We'll continue to follow. Time with Patient: Greater than 30
--- NOTE | 2018-06-03 08:17 | P.OBCN ---
History of Present Illness Consult date: 06/03/18 Requesting physician: Francisca Chu Reason for consult: other (Yeast infection) Chief complaint: Vaginal itching and burning History of present illness: This is a 28-year-old female who presented with abdominal pain following an attempted laparoscopic surgery that turned into a laparotomy on 05/21/2018 for recurrent endometrial cancer. While in the hospital she is noted to have itching and burning vaginally and I was consulted to determine whether it be safe to give an antifungal due to her elevated transaminases. She states that the itching is a little bit better this morning but feels that she has just started her period. Please see dictated history and physicals for details of her admission. She does have what appears to be liver metastases and lung metastases. Review of Systems Genitourinary: Reports vaginal itching, Denies vaginal discharge Past Medical History Past Medical History: Diabetes Mellitus Additional Past Medical History / Comment(s): ovarian cancer History of Any Multi-Drug Resistant Organisms: None Reported Additional Past Surgical History / Comment(s): right ovaries removed, mediport placed and removed; recent laparoscopy with conversion to laparotomy-unable to remove left ovary due to scar tissue. Additional Past Anesthesia/Blood Transfusion Reaction / Comm: Unsure if bolld has been recieved. Past Psychological History: Anxiety, Depression Additional Psychological History / Comment(s): Lives with her boyfriend. Works out of the home. Does not relate to children. No international travel. The experience. No animals in the home Smoking Status: Never smoker Past Alcohol Use History: Rare Past Drug Use History: Marijuana Medications and Allergies Home Medications Medication Instructions Recorded Confirmed Type Acetaminophen with Codeine 1 tab PO Q6H PRN 3 Days #12 tab 04/29/18 05/31/18 Rx [Tylenol w/codeine #3] Empagliflozin [Jardiance] 10 mg PO DAILY 04/29/18 05/31/18 History metFORMIN HCL ER [Glucophage Xr] 1,000 mg PO AC-BID 04/29/18 05/31/18 History Docusate [Colace] 100 mg PO DAILY 05/31/18 05/31/18 History Ibuprofen [Motrin] 600 mg PO Q6HR PRN 05/31/18 05/31/18 History oxyCODONE HCL [OxyIR] 5 mg PO Q4H PRN 05/31/18 05/31/18 History Allergies Allergy/AdvReac Type Severity Reaction Status Date / Time latex Allergy Rash/Hives Verified 05/31/18 07:11 prednisone AdvReac Hallucinati Verified 05/31/18 07:11 ons Exam Osteopathic Statement: *. No significant issues noted on an osteopathic structural exam other than those noted in the History and Physical/Consult. Vital Signs Temp Pulse Resp BP Pulse Ox 06/03/18 04:00 98.4 F 117 H 18 125/78 96 06/03/18 00:00 97.2 F L 117 H 20 115/75 95 06/02/18 19:57 98.0 F 114 H 20 115/65 96 06/02/18 16:00 97.7 F 120 H 20 117/78 98 06/02/18 12:29 96.7 F L 115 H 20 121/61 95 06/02/18 12:00 119 H 20 Intake and Output 06/02/18 06/03/18 06/03/18 22:59 06:59 14:59 Intake Total 1100 600 Balance 1100 600 Intake: Intake, IV Titration 1000 600 Amount Sodium Chloride 0.9% 1, 1000 600 000 ml @ 999 mls/hr IV . Q1H1M ONE Rx#:[id number] Oral 100 Other: Voiding Method Toilet Toilet Weight 88.7 kg - OBG Physical Exam Vulva: Minimal redness, no swelling noted Vagina: Scant blood noted on candelaria-pad Results Result Diagrams: 06/02/18 05:30 06/02/18 05:30 Abnormal Lab Results - Last 24 Hours (Table) 06/02/18 06/02/18 06/02/18 Range/Units 05:30 05:30 11:13 Neutrophils # (Manual) 20.30 H (1.3-7.7) k/uL Monocytes # (Manual) 1.90 H (0-1.0) k/uL Metamyelocytes # (Man) 0.24 H (0) k/uL POC Glucose (mg/dL) 136 H (75-99) mg/dL Total Bilirubin 2.9 H (0.2-1.3) mg/dL Conjugated Bilirubin 0.9 H (0.0-0.3) mg/dL Delta Bilirubin 1.4 H (0.0-0.2) mg/dL AST 175 H (14-36) U/L ALT 56 H (9-52) U/L Alkaline Phosphatase 576 H (38-126) U/L Albumin 3.1 L (3.5-5.0) g/dL 06/02/18 06/02/18 06/03/18 Range/Units 16:20 20:40 05:53 Neutrophils # (Manual) (1.3-7.7) k/uL Monocytes # (Manual) (0-1.0) k/uL Metamyelocytes # (Man) (0) k/uL POC Glucose (mg/dL) 114 H 139 H 113 H (75-99) mg/dL Total Bilirubin (0.2-1.3) mg/dL Conjugated Bilirubin (0.0-0.3) mg/dL Delta Bilirubin (0.0-0.2) mg/dL AST (14-36) U/L ALT (9-52) U/L Alkaline Phosphatase (38-126) U/L Albumin (3.5-5.0) g/dL Assessment and Plan Assessment: Vaginal yeast infection per patient's symptoms, slightly improved today Plan: Advised patient she may wait to take medication and see if it is just her period coming on that is causing irritation. If she wishes, I would suggest giving just a one time dose of Diflucan 150 mg. Even though it does go through the liver, it is a short-term dosing and at this point I feel it would be better to treat the patient's symptoms to make her more comfortable. Thank you for this consultation.
[2018-06-03] MEDS: DOCUSATE 100 MG CAP PO SCH (08:33)
[2018-06-03] MEDS: HEPARIN SODIUM,PORCINE 5,000 UNIT/ML 1 ML VIAL SQ SCH ×3 (08:33→23:46)
[2018-06-03] MEDS: PANTOPRAZOLE 40 MG/10 ML VIAL IV SCH (08:33)
[2018-06-03] MEDS: Acetaminophen-Codeine 300-30mg TAB PO PRN ×2 (08:33→16:55)
[2018-06-03] MEDS: SENNOSIDES-DOCUSATE SODIUM 1 EACH TAB PO SCH ×2 (08:33→21:21)
[2018-06-03] MEDS: POLYETHYLENE GLYCOL 3350 17 GM POWD.PACK PO SCH ×2 (08:33→21:20)
[2018-06-03] MEDS: NON-FORMULARY DRUG (Empagliflozin [Jardiance] 10 MG) PO SCH (08:44)
[2018-06-03] MEDS ORDERED: VANCOMYCIN TROUGH DUE 1 EACH MISC MISCELLANE ONE (09:00)
--- NOTE | 2018-06-03 09:02 | MR ---
EXAMINATION TYPE: MR brain wo/w con DATE OF EXAM: 06/03/2018 COMPARISON: NONE HISTORY: Hx of Ovarian CA, Headaches, Dizzy, Unsteady gate, Gadavist 8ml TECHNIQUE: Multiplanar, multisequence images of the brain and brainstem is performed without and with IV contras t, utilizing 8 mL intravenous Gadavist . FINDINGS: Diffusion weighted images demonstrate no evidence of a recent infarct or other diffusion ab normality. There is no extra-axial fluid collection or significant white matter signal abnormality. The ventricular system and cisternal spaces are normal in size and appearance. The brain volume is age appropriate. There is heterogenous enhancement of the pituitary gland specifically on postcontrast sagittal image 73 with 2 focal punctate areas of hypointensity that could relate to pituitary microadenomas. Pituita ry MR with small [id number] images could further evaluate this finding. There is slight abnormal enhancement within the left paracentral and central lorraine on postcontrast axi al T1 fat-sat images 10 through 12. No corresponding abnormal T2 or FLAIR signal is seen although art ifact is noted within the lorraine on T2-weighted imaging limiting evaluation. Overall enhancement is ser piginous and favored to represent a developmental venous anomaly extending into the medulla. This cou ld be confirmed with GRE sequence to evaluate for blooming of a developmental venous anomaly. On coronal imaging there appear to be prominent tortuous veins extending into the superior sagittal s inus rather than leptomeningeal enhancement. Post contrast images demonstrate no other areas of abnor mal enhancement. There is leftward nasal septal deviation. Scant mucosal thickening is seen within th e ethmoid sinuses. Remaining paranasal sinuses and mastoid air cells are well aerated. Globes appear symmetric. Major intracranial flow voids are maintained. There is slight decreased bone marrow signal throughout the calvarium and upper cervical spine although there does not appear to be focal abnorma l enhancement. Therefore this finding could relate to anemia or much less likely osseous metastasis. IMPRESSION: 1. Abnormal pontine enhancement appears serpiginous extending into the medulla favored to represent a developmental venous anomaly rather than brainstem metastasis. The patient could be brought back for a single GRE sequence and addendum could be performed to further support develop mental venous anoma ly. 2. Decreased bone marrow signal within the upper cervical spine and calvarium without abnormal enhanc ement. Correlate for anemia. 3. Findings suspicious for pituitary microadenomas. MR pituitary could be performed for further evalu ation.
[2018-06-03 09:39] LABS: HCT 28.4 % (34.0-46.0); HGB 8.3 gm/dL (11.4-16.0); Hypochromasia Marked; MCH 27.8 pg (25.0-35.0); MCHC 29.2 g/dL (31.0-37.0); MCV 95.3 fL (80.0-100.0); Platelet Count 572 k/uL (150-450); RBC 2.99 m/uL (3.80-5.40); RDW 13.3 % (11.5-15.5); WBC 20.8 k/uL (3.8-10.6)
--- NOTE | 2018-06-03 09:53 | P.PN ---
Subjective On-call hospitalist covering for Dr. Villalta through the weekend 06/01-. Dr. Villalta will resume the care of the patient on 06/03/2018 This is a pleasant 28 years old female with past medical history of diabetes mellitus, history of ovarian cancer status post laparoscopic excision. Presents now with pleuritic chest pain. Patient states that she had laparoscopic surgery on 05/21/[address] [facility] in the [place], patient states that they could not perform the full surgery because she has some adhesions in her intestine, at the same time patient has been diagnosed with malignancy. At that time she started to have some pleuritic-like chest pain on the right side of her chest wall, however that is down and currently is 2-3/10 in severity, however a few days ago she started developing the same kind of pain on the left side lateral chest wall, patient describes the pain as sharp that gets worse with deep breath and coughing, patient doesn't have much She only coughs occasionally with no phlegm or blood in it. She is short of breath and currently on nasal cannula. She has also some mild abdominal discomfort at the surgery site associated with some constipation but yesterday she had 2 bowel movement with suppository treatment. She has some nausea but no vomiting. She had negative CTPA for pulmonary embolism however she has some interstitial edema associated with hematogenous metastatic disease with a scattered bilateral pulmonary nodules significant increase in size from 1 month ago suggesting aggressive disease with thoracic metastatic lymphadenopathy. At the same time computed tomography scan of the abdomen shows worsening small amount of pelvic ascites, and no suspicious left pelvic mass with possible adenopathy or left ovarian neoplasm. Within Retroperitoneal adenopathy. No hepatomegaly with suspected hepatic metastasis. On suspect partial obstruction. On admission patient has been tachycardic in 120s, blood pressure is stable, afebrile, saturation 91-98 on 2 L oxygen via NC. I offered to do serum test to rule out , patient stated that they checked her urine test and that she doesn't want to be checked again. Risks including but not limited to teratogenic effect his been explained to the patient and she verbalized understanding and still refuses to do the test. 06/02/2018 Patient was sitting in the chair not in distress. She has some mild abdominal tenderness but not severe pain. Patient is still nauseated but no vomiting, still has no bowel movement but she is passing gases. She is a little dyspneic . Her chest pain today is is down to 6/10 which was tolerated by the patient and she does not want any more pain medication. Oncology evaluated is pending, for her rapidly growing metastatic ovarian tumor. Infectious disease and surgical input is appreciated. she has worsening leukoctosis from 16K to 23K, She remains on Zosyn and vancomycin as per ID team , intravenous fluid is restarted . liver enz elevated, bilirubin is improving from 3.7 to 2.9, ct of abdomen showing enlarged liver with multiple small lesions are noted and metastatic disease is suspected, and no need for surgical intervention for now however we getting the records for her previous operation as per surgery team. Objective - Vital Signs Vital signs: Vital Signs Temp 98.0 F 06/02/18 00:00 Pulse 130 H 06/02/18 04:00 Resp 18 06/02/18 04:00 BP 133/73 06/02/18 04:00 Pulse Ox 93 L 06/02/18 04:00 Intake & Output 06/01/18 06/02/18 06/02/18 18:59 06:59 18:59 Intake Total 1908 0 Output Total 300 Balance 1608 0 Weight 85.1 kg Intake: IV 0 Sodium Chloride 0.9% 1, 0 000 ml @ 100 mls/hr IV . Q10H [facility] Rx#:[id number] Intake, IV Titration 1450 Amount Sodium Chloride 0.9% 1, 1200 000 ml @ 100 mls/hr IV . Q10H STA Rx#:[id number] Vancomycin 1,500 mg In 250 Sodium Chloride 0.9% 250 ml @ 125 mls/hr IVPB ONCE STA Rx#:[id number] Oral 458 Output: Urine 300 Other: Voiding Method Toilet Toilet # Voids 1 1 # Bowel Movements 1 - Exam GENERAL: The patient is alert and oriented x3, not in any acute distress. Well developed, well nourished. HEENT: Pupils are round and equally reacting to light. EOMI. No scleral icterus. No conjunctival pallor. Normocephalic, atraumatic. No pharyngeal erythema. No thyromegaly. CARDIOVASCULAR: S1 and S2 present. No murmurs, rubs, or gallops. -PULMONARY: Chest is clear to auscultation, no wheezing or crackles. Chest wall tenderness -ABDOMEN: Soft, mild general abdominal tenderness, nondistended, normoactive bowel sounds. No palpable organomegaly. MUSCULOSKELETAL: No joint swelling or deformity. EXTREMITIES: No cyanosis, clubbing, or pedal edema. NEUROLOGICAL: Gross neurological examination did not reveal any focal deficits. SKIN: No rashes. - Labs CBC & Chem 7: 06/02/18 05:30 06/02/18 05:30 Labs: Abnormal Lab Results - Last 24 Hours (Table) 06/01/18 06/01/18 06/01/18 Range/Units 11:34 16:21 20:55 WBC (3.8-10.6) k/uL RBC (3.80-5.40) m/uL Hgb (11.4-16.0) gm/dL Hct (34.0-46.0) % MCHC (31.0-37.0) g/dL Plt Count (150-450) k/uL Sodium (137-145) mmol/L Potassium (3.5-5.1) mmol/L BUN (7-17) mg/dL Creatinine (0.52-1.04) mg/dL Glucose (74-99) mg/dL POC Glucose (mg/dL) 138 H 134 H 148 H (75-99) mg/dL Calcium (8.4-10.2) mg/dL 06/02/18 06/02/18 06/02/18 Range/Units 05:30 05:30 05:36 WBC 23.7 H (3.8-10.6) k/uL RBC 3.17 L (3.80-5.40) m/uL Hgb 8.5 L (11.4-16.0) gm/dL Hct 29.8 L (34.0-46.0) % MCHC 28.5 L (31.0-37.0) g/dL Plt Count 567 H (150-450) k/uL Sodium 135 L (137-145) mmol/L Potassium 5.3 H (3.5-5.1) mmol/L BUN 23 H (7-17) mg/dL Creatinine 1.11 H (0.52-1.04) mg/dL Glucose 165 H (74-99) mg/dL POC Glucose (mg/dL) 166 H (75-99) mg/dL Calcium 12.0 H (8.4-10.2) mg/dL Assessment and Plan Assessment: History of ovarian tumor, status post laparoscopic tumor excision and/or biopsy as per history Metastatic disease to the liver, lung and multiple lymph nodes in the abdomen and chest. Severe pleuritic chest pain, secondary to above Diabetes mellitus Possible partial bowel obstruction Leukocytosis Fluid overload Plan: This is a pleasant 28 years old female who presents with chest pain and metastatic covering tumor. Continue with pain management, call oncology and surgery consult. Patient was started with antibiotic on admission. We will call infectious disease for optimization of her treatment. We will stop IV fluids and view of her interstitial edema and fluid overload. Labs and medication were reviewed. Continue same treatment. Continue with symptomatic treatment. Resume home medication. Monitor lytes and vitals. DVT and GI prophylaxis. Further recommendations of the clinical course of the patient DVT prophylaxis: Subcutaneous heparin GI Prophylaxis: Protonix Prognosis is guarded
[2018-06-03] MEDS: VANCOMYCIN 1,500 MG in SODIUM CHLORIDE 0.9% 250 ML IVPB SCH (10:12)
[2018-06-03 10:16] LABS: Albumin 3.1 g/dL (3.5-5.0); Calcium 12.1 mg/dL (8.4-10.2); Potassium 5.2 mmol/L (3.5-5.1); Total Protein 6.6 g/dL (6.3-8.2)
[2018-06-03 10:28] LABS: Band Neutrophils % 3 %; Eosinophils # (M) 0.83 k/uL (0-0.7); Lymphocytes # (M) 2.29 k/uL (1.0-4.8); Monocytes # (M) 1.04 k/uL (0-1.0); Neutrophils % (M) 77 %; Nucleated Red Blood Cells 0 /100 WBC (0-0); Total Cells Counted 100
[2018-06-03 10:31] LABS: Toxic Granulation Present
[2018-06-03 11:34] LABS: Glucose,Whole Blood 97 mg/dL (75-99)
[2018-06-03] MEDS: HYDROcodone/APAP 5-325MG 1 EACH TAB PO PRN ×2 (11:36→21:38)
[2018-06-03] MEDS: ALPRAZolam 0.25 MG TAB PO PRN (12:26)
[2018-06-03 12:30] LABS: Folate, Serum 4.5 ng/mL
[2018-06-03 12:55] LABS: Iron Saturation 4.85 (12.00-45.00)
--- NOTE | 2018-06-03 13:04 | P.PN ---
Progress Note - Text Progress Note Date: 06/03/18 The patient is tolerating a diet and having bowel movements. Recommend continuing bowel regimen and low residue diet. Will follow up as needed
[2018-06-03] MEDS ORDERED: VANCOMYCIN IV PER PHARMACY 1 EACH MISC MISCELLANE PRN (13:59)
--- NOTE | 2018-06-03 14:16 | US ---
EXAMINATION TYPE: US kidneys/renal and bladder DATE OF EXAM: 06/03/2018 COMPARISON: US 06/02/2018, CT 05/31/2018 CLINICAL HISTORY: 28-year-old female R/O hydronephrosis. TECHNIQUE: Multiple sonographic images of the kidneys and bladder are obtained. FINDINGS: EXAM MEASUREMENTS: Right Kidney: 13.4 X 5.1 X 5.6 cm Left Kidney: Unable to accurately measure length and height due to bowel gas. Right Kidney: No hydronephrosis. Left Kidney: No hydronephrosis visualized. Limited exam due to overlying bowel gas Bladder: Underdistention limits its evaluation. IMPRESSION: Very limited visualization of the left kidney. No hydronephrosis seen on either side.
--- NOTE | 2018-06-03 16:37 | P.PN ---
Subjective Progress Note Date: 06/03/18 Principal diagnosis: Metastatic Recurrent Ovarian Cancer patient has still been unable to urinate, urology was consulted per primary team and ultrasound reviewed without evidence of hydronephrosis. Straight catherization attempted by nursing without success of urine output. Creatinine has increased from 0.5 to 3.17 since admission. Continues with increased respiratory effort, per nursing desaturation 87% after minimal activity today. increased 93% with 2L NC. Liver function has actually improved since admission in regards to total bili, AST increased, ALT stable. Her CO2 18, secondary to anuria. Case has been discussed in detatil with nurse and Dr. Villalta today Objective - Vital Signs Vital signs: Vital Signs Temp 97.1 F L 06/03/18 15:00 Pulse 124 H 06/03/18 15:03 Resp 18 06/03/18 15:03 BP 147/51 06/03/18 15:00 Pulse Ox 93 L 06/03/18 15:00 Intake & Output 06/02/18 06/03/18 06/03/18 18:59 06:59 18:59 Intake Total 1315 1600 500 Output Total 90 Balance 1225 1600 500 Weight 88.7 kg 88.7 kg Intake: Intake, IV Titration 875 1600 500 Amount Piperacillin-Tazobactam 3 100 100 .375 gm In Sodium Chloride 0.9% 100 ml @ 25 mls/hr IVPB Q8H [facility] Rx#: [id number] Sodium Chloride 0.9% 1, 525 150 000 ml @ 75 mls/hr IV . [id number] DIANE Rx#:[id number] Sodium Chloride 0.9% 1, 1600 000 ml @ 999 mls/hr IV . Q1H1M [facility] Rx#:[id number] Vancomycin 1,500 mg In 250 250 Sodium Chloride 0.9% 250 ml @ 125 mls/hr IVPB Q8H DI[facility] Rx#:[id number] Oral 440 Output: Urine 90 Other: Voiding Method Toilet Toilet Toilet # Voids 1 - Exam - Constitutional General appearance: cooperative, mild distress, Pale - EENT Eyes: EOMI, PERRLA, normal appearance ENT: NA/AT, normal oropharynx - Neck No cervical adenopathy supple Neck: normal ROM - Respiratory Respiratory: bilateral: diminished (increased effort noted), wheezing - Cardiovascular Rhythm: regular Heart sounds: normal: S1, S2 - Gastrointestinal Evidence of recent surgery incision cdi no erythema General gastrointestinal: distended, umbilical hernia - Integumentary Integumentary: pale - Neurologic Neurologic: CNII-XII intact - Musculoskeletal Musculoskeletal: generalized weakness, strength equal bilaterally - Psychiatric Psychiatric: A&O x's 3, appropriate affect, intact judgment & insig - Labs CBC & Chem 7: 06/03/18 09:00 06/03/18 09:00 Labs: Abnormal Lab Results - Last 24 Hours (Table) 06/02/18 06/02/18 06/02/18 Range/Units 05:30 05:30 16:20 WBC (3.8-10.6) k/uL RBC (3.80-5.40) m/uL Hgb (11.4-16.0) gm/dL Hct (34.0-46.0) % MCHC (31.0-37.0) g/dL Plt Count (150-450) k/uL Neutrophils # (Manual) (1.3-7.7) k/uL Monocytes # (Manual) (0-1.0) k/uL Eosinophils # (Manual) (0-0.7) k/uL Sodium (137-145) mmol/L Potassium (3.5-5.1) mmol/L Carbon Dioxide (22-30) mmol/L BUN (7-17) mg/dL Creatinine (0.52-1.04) mg/dL Glucose (74-99) mg/dL POC Glucose (mg/dL) 114 H (75-99) mg/dL Calcium (8.4-10.2) mg/dL Iron 10 L (50-170) ug/dL TIBC 206 L (228-460) ug/dL Iron Saturation 4.85 L (12.00-45.00) Ferritin 371.3 H (10.0-291.0) ng/mL Total Bilirubin (0.2-1.3) mg/dL AST (14-36) U/L ALT (9-52) U/L Alkaline Phosphatase (38-126) U/L Albumin (3.5-5.0) g/dL CA 125 Antigen 131.6 H (0.0-30.1) U/mL Vitamin B12 1010.0 H (200.0-944.0) pg/mL Vancomycin Trough ug/mL 06/02/18 06/03/18 06/03/18 Range/Units 20:40 05:53 09:00 WBC (3.8-10.6) k/uL RBC (3.80-5.40) m/uL Hgb (11.4-16.0) gm/dL Hct (34.0-46.0) % MCHC (31.0-37.0) g/dL Plt Count (150-450) k/uL Neutrophils # (Manual) (1.3-7.7) k/uL Monocytes # (Manual) (0-1.0) k/uL Eosinophils # (Manual) (0-0.7) k/uL Sodium 136 L (137-145) mmol/L Potassium 5.2 H (3.5-5.1) mmol/L Carbon Dioxide 18 L (22-30) mmol/L BUN 35 H (7-17) mg/dL Creatinine 3.17 H (0.52-1.04) mg/dL Glucose 112 H (74-99) mg/dL POC Glucose (mg/dL) 139 H 113 H (75-99) mg/dL Calcium 12.1 H (8.4-10.2) mg/dL Iron (50-170) ug/dL TIBC (228-460) ug/dL Iron Saturation (12.00-45.00) Ferritin (10.0-291.0) ng/mL Total Bilirubin 3.0 H (0.2-1.3) mg/dL AST 262 H (14-36) U/L ALT 59 H (9-52) U/L Alkaline Phosphatase 496 H (38-126) U/L Albumin 3.1 L (3.5-5.0) g/dL CA 125 Antigen (0.0-30.1) U/mL Vitamin B12 (200.0-944.0) pg/mL Vancomycin Trough ug/mL 06/03/18 06/03/18 Range/Units 09:00 09:00 WBC 20.8 H (3.8-10.6) k/uL RBC 2.99 L (3.80-5.40) m/uL Hgb 8.3 L (11.4-16.0) gm/dL Hct 28.4 L (34.0-46.0) % MCHC 29.2 L (31.0-37.0) g/dL Plt Count 572 H (150-450) k/uL Neutrophils # (Manual) 16.60 H (1.3-7.7) k/uL Monocytes # (Manual) 1.04 H (0-1.0) k/uL Eosinophils # (Manual) 0.83 H (0-0.7) k/uL Sodium (137-145) mmol/L Potassium (3.5-5.1) mmol/L Carbon Dioxide (22-30) mmol/L BUN (7-17) mg/dL Creatinine (0.52-1.04) mg/dL Glucose (74-99) mg/dL POC Glucose (mg/dL) (75-99) mg/dL Calcium (8.4-10.2) mg/dL Iron (50-170) ug/dL TIBC (228-460) ug/dL Iron Saturation (12.00-45.00) Ferritin (10.0-291.0) ng/mL Total Bilirubin (0.2-1.3) mg/dL AST (14-36) U/L ALT (9-52) U/L Alkaline Phosphatase (38-126) U/L Albumin (3.5-5.0) g/dL CA 125 Antigen (0.0-30.1) U/mL Vitamin B12 (200.0-944.0) pg/mL Vancomycin Trough 65.9 H* ug/mL Microbiology - Last 24 Hours (Table) 06/02/18 12:24 Blood Culture - Preliminary Blood No Growth after 24 hours 06/02/18 12:29 Blood Culture - Preliminary Blood No Growth after 24 hours Assessment and Plan Plan: Assessment and Recommendations: 1. Recurrent Metastatic Likely Ovarian Cancer: New Liver and Lung Metastasis - Prior diagnosis Right Ovary in 2012 treated with Tumor resection and Right oopherectomy along with 6 cycles of adjuvant carboplatin and Taxol - Will obtain pathology from Dr. Prince [facility] - Increased Pulmonary nodules compared to one month prior concerning for aggressive nature - Recent ex lap 05/21 - will need MP and karina-adjvant chemotherapy as soon as surgically cleared (at minimum one more week) - Full re-staging bone scan (Await improvement in renal function) - MRI Brain Reviewed - Increasing Ca 125 - Dr. Mckoy to discuss with Dr. Prince - Interventional Radiology for Picc Line Placement in anticipation for chemotherapy, 2. Acute Dyspnea - Acute Hypoxia - Likely related to increased metastatic disease in lungs, liver, and abdominal ascites. - Desaturation today 87%, Portable chest Xray ordered acute process 3. Normocytic Anemia - Likely from Malignancy but possible component of Iron deficiency with recent surgery - Will Check Iron labs and B12 and supp if needed - No transfusion needed today, Transfuse less than 7 - Component of iron deficiency, ferritin likely elevated from inflammation - Saturation 4, Iron 10, Ok for Parental Iron 4. Liver Transiminitis, Hyperbilirubinemia - Stable/unchanged since admission - Likely related to new diffuse hepatic metastasis - Recheck Hepatic Function and monitor. 5. Dysuria- Inability to urinate: Progressive, Worsening - Urology Consulted, no hydronephrosis seen on ultrasound - No output with urinary straight catherization 6. Abdominal Distention, Discomfort: Worsening - Inability to urinate and no bowel movement - Diagnostic and Therapeutic paracentesis, consult to IR Placed 7. Complaints of Vaginal Yeast Infection: - With increased liver function and known Ovarian Cancer recurrence would like [employer] S[employer] APPLICATOR to evaluate prior to treatment with intravaginal or Antifungals - BR[employer] SIDING APPLICATOR did evaluate and ok for diflucan x1 if needed 8. Constipation: - Increase Bowel Regimen - Positive BM 06/03/18 9. Anxiety: - Xanax PRN 10. Hypercalcemia: - IV hydration and Bolus was given per primary team - Recheck 11. Acute Renal Failure secondary to inability to urinate. - Worsening - No evidence of hydronephrosis - Nephrology has been consulted - Toradol Stopped 12. Hyperkalemia: K = 5.2 13. Metabolic Acidosis secondary to above. Discussed in detail with Dr. Mckoy. Recheck labs Await nephrology input Plan Picc in anticipation of chemotherapy Time with Patient: Greater than 30
[2018-06-03 17:09] LABS: Glucose,Whole Blood 87 mg/dL (75-99)
[2018-06-03] MEDS ORDERED: FUROSEMIDE 10 MG/ML 10 ML VIAL IV STA (17:09)
--- NOTE | 2018-06-03 17:33 | XR ---
EXAMINATION TYPE: XR chest 1V portable DATE OF EXAM: 06/03/2018 Comparison: 05/31/2018 Clinical History: 28-year-old female desaturation Findings: Low lung volumes with cardiovascular markings. In addition, the heart is borderline enlarged and ther e is diffuse interstitial and vascular prominence with small effusions and bibasilar opacities. Impression: 1. Hypoventilatory changes. 2. However, in addition, there are interstitial changes and suggestion of small effusions. Correlate for developing CHF. 3. Patchy bibasilar areas of atelectasis and/or consolidation.
[2018-06-03 17:50] LABS: Basophils # (A) 0.1 k/uL (0-0.2); Basophils % (A) 0 %; Eosinophils # (A) 0.3 k/uL (0-0.7); Eosinophils % (A) 1 %; HCT 28.6 % (34.0-46.0); HGB 8.3 gm/dL (11.4-16.0); Hypochromasia Marked; Lymphocytes % (A) 10 %; MCHC 28.9 g/dL (31.0-37.0); MCV 96.8 fL (80.0-100.0); Mean Platelet Volume 7.9; Monocytes # (A) 1.2 k/uL (0-1.0); Monocytes % (A) 6 %; Neutrophils # (A) 16.3 k/uL (1.3-7.7); Neutrophils % (A) 80 %; Platelet Count 510 k/uL (150-450); RBC 2.95 m/uL (3.80-5.40); RDW 13.7 % (11.5-15.5); WBC 20.3 k/uL (3.8-10.6)
[2018-06-03 18:10] LABS: Albumin 3.3 g/dL (3.5-5.0); Calcium 12.5 mg/dL (8.4-10.2); Magnesium 2.1 mg/dL (1.6-2.3); Potassium 5.7 mmol/L (3.5-5.1); Total Protein 6.7 g/dL (6.3-8.2); Uric Acid 14.2 mg/dL (3.7-7.4)
[2018-06-03 18:16] LABS: Ionized Calcium 6.6 mg/dL (4.5-5.3)
[2018-06-03] MEDS: ONDANSETRON 4 MG/2 ML VIAL IVP PRN (18:54)
[2018-06-03] MEDS ORDERED: RASBURICASE 6 MG in SODIUM CHLORIDE 0.9% 46 ML IV ONE (19:00)
[2018-06-03 20:46] LABS: Glucose,Whole Blood 98 mg/dL (75-99)
[2018-06-03] MEDS: CALCITONIN INJ 200 UNIT/ML (MDV) VIAL SQ SCH (21:30)
[2018-06-04] MEDS: HYDROcodone/APAP 5-325MG 1 EACH TAB PO PRN ×2 (01:55→06:15)
[2018-06-04] MEDS: PIPERACILLIN-TAZOBACTAM 3.375 GM in SODIUM CHLORIDE 0.9% 100 ML IVPB SCH ×3 (05:00→21:08)
[2018-06-04 06:02] LABS: Glucose,Whole Blood 92 mg/dL (75-99)
[2018-06-04] MEDS: PANTOPRAZOLE 40 MG TABLET PO SCH (06:15)
[2018-06-04 07:01] LABS: Albumin 3.3 g/dL (3.5-5.0); Calcium 11.9 mg/dL (8.4-10.2); Total Bilirubin 2.9 mg/dL (0.2-1.3); Total Protein 6.7 g/dL (6.3-8.2); Uric Acid 9.9 mg/dL (3.7-7.4)
[2018-06-04 07:12] LABS: Glucose,Whole Blood 85 mg/dL (75-99)
[2018-06-04 07:16] LABS: Potassium 6.7 mmol/L (3.5-5.1)
[2018-06-04] MEDS ORDERED: INSULIN REGULAR 100 UNIT/ML VIAL IV ONE (07:19)
[2018-06-04] MEDS ORDERED: CALCIUM GLUCONATE 1,000 MG in SODIUM CHLORIDE 0.9% 100 ML IVPB ONE (07:20)
[2018-06-04 07:23] LABS: HCT 27.4 % (34.0-46.0); HGB 7.7 gm/dL (11.4-16.0); Hypochromasia Marked; MCH 27.6 pg (25.0-35.0); MCHC 28.1 g/dL (31.0-37.0); MCV 98.3 fL (80.0-100.0); Mean Platelet Volume 8.6; Platelet Count 613 k/uL (150-450); RBC 2.79 m/uL (3.80-5.40); RDW 13.8 % (11.5-15.5); WBC 22.9 k/uL (3.8-10.6)
[2018-06-04] MEDS ORDERED: DEXTROSE 50%-WATER 50 ML SYRINGE IVP STA ×2 (07:33→12:49)
[2018-06-04] MEDS ORDERED: SODIUM BICARB 8.4% 50 ML SYR (1 MEQ/ML) IV STA ×2 (07:34→08:21)
[2018-06-04] MEDS: SODIUM CHLORIDE 0.9% 1,000 ML IV SCH (07:40)
[2018-06-04] MEDS: NON-FORMULARY DRUG (Empagliflozin [Jardiance] 10 MG) PO SCH (07:40)
[2018-06-04] MEDS: ALPRAZolam 0.25 MG TAB PO PRN (07:47)
[2018-06-04] MEDS: DOCUSATE 100 MG CAP PO SCH (07:48)
[2018-06-04] MEDS: HEPARIN SODIUM,PORCINE 5,000 UNIT/ML 1 ML VIAL SQ SCH ×2 (07:48→17:20)
[2018-06-04 07:49] LABS: Band Neutrophils % 3 %; Lymphocytes # (M) 0.92 k/uL (1.0-4.8); Metamyelocytes # (M) 0.46 k/uL (0); Metamyelocytes % 2 %; Monocytes # (M) 0.69 k/uL (0-1.0); Myelocytes # (M) 0.23 k/uL (0); Myelocytes % 1 %; Neutrophils % (M) 88 %; Nucleated Red Blood Cells 0 /100 WBC (0-0); Polychromasia Present; Total Cells Counted 200
[2018-06-04] MEDS: CALCITONIN INJ 200 UNIT/ML (MDV) VIAL SQ SCH ×2 (08:16→21:11)
[2018-06-04] MEDS ORDERED: IV FLUID CONTINUATION 900 ML IV ONE (08:59)
[2018-06-04] MEDS ORDERED: fentaNYL (PF) 50 MCG/ML 2 ML AMP IV ONE (08:59)
[2018-06-04] MEDS ORDERED: LIDOCAINE 1% INJ 10MG/ML (20 ML MDV) SQ ONE (09:02)
[2018-06-04] MEDS ORDERED: SODIUM CHLORIDE 0.9% 250 ML with PAMIDRONATE 60 MG IV ONE ×2 (10:07)
--- NOTE | 2018-06-04 10:11 | CONS ---
DATE OF CONSULTATION: 06/04/2018 This is a 28-year-old, pleasant female, the patient has a history of acute chronic renal failure. The potassium is 6.7, BUN 44, creatinine is 4.27. I was consulted for placement of urgent dialysis catheter. The patient has history of ovarian cancer. She underwent surgery and also she went for chemotherapy for recurrence. MEDICAL HISTORY: Patient has history of diabetes mellitus. PHYSICAL EXAMINATION: NECK: Supple. CHEST: Clear to auscultation. ABDOMEN: Soft. Femoral pulses are palpable. Mild swelling of both lower extremities. IMPRESSION: Acute on chronic renal failure. PLAN: Placement of a dialysis catheter. Risks and complications of bleeding, infection , thrombosis has been discussed. MMODL / IJN: [id number] / MTDD
--- NOTE | 2018-06-04 10:11 | PCN ---
DATE OF SERVICE: 06/04/2018 PROCEDURE NOTE PREOP DIAGNOSIS: Acute on chronic renal failure. PROCEDURE: Ultrasound-guided 30 cm dialysis catheter placed right femoral approach. DESCRIPTION OF PROCEDURE: Patient was brought to the pathology laboratory director. Right groin was prepped and drapes applied in usual sterile manner. 1% lidocaine infiltrated. Micropuncture introduced into the right femoral vein. Micropuncture guidewire was passed and 4 Iraqi dilator advanced on top of the guidewire. Then we passed a regular guidewire. Dilator was advanced on the top of the guidewire. Then we placed a 30 cm dialysis catheter on top of the guidewire. Guidewire was removed. After that, we flushed the catheter with heparin and hep-locked. Dressing applied. Patient tolerated the procedure well. DIMAL / FOUZIAN: [id number] / MTDD
--- NOTE | 2018-06-04 10:14 | P.NPCON ---
History of Present Illness - Reason for Consult acute renal failure, hyperkalemia - History of Present Illness Reason for consultation: Acute kidney injury History of present illness: Patient is a 28-year-old female seen in renal consultation for acute kidney injury. Her baseline creatinine is near 1. Renal function has been gradually worsening the last few days with creatinine up to 4.27 today. Patient is noted to be oliguric. Patient states she was diagnosed with ovarian cancer in 2017 but has not started chemotherapy as of yet. She presented to the hospital with left-sided chest pain. The pain was mostly sharp in nature. Currently the pain is resolved. She did have a tumor excision from her abdomen about a week prior to admission. Patient has been maintained on IV vancomycin. Her vancomycin level was noted to be 65.9 on 06/03/2018. She also received IV contrast dye for CT on May 31 which revealed no evidence of pulmonary embolus. Denies any family history of kidney disease. She does admit to taking ibuprofen about twice a day prior to admission for pain. The patient is currently oliguric. Potassium level was 6.7 this morning. She is also extremely acidotic with a bicarb level of 12. Patient did receive IV Lasix yesterday with no response and urine output. Vital signs are stable. General: The patient appeared well nourished and normally developed. HEENT: Head exam is unremarkable. Neck is without jugular venous distension. LUNGS: Breath sounds decreased. HEART: Rate and Rhythm are regular. First and second heart sounds normal. No murmurs, rubs or gallops. ABDOMEN: Abdominal exam reveals normal bowel sounds. Non-tender and non- distended. No evidence of peritonitis. EXTREMITITES: Trace edema. Past Medical History Past Medical History: Diabetes Mellitus Additional Past Medical History / Comment(s): ovarian cancer History of Any Multi-Drug Resistant Organisms: None Reported Additional Past Surgical History / Comment(s): right ovaries removed, mediport placed and removed; recent laparoscopy with conversion to laparotomy-unable to remove left ovary due to scar tissue. Additional Past Anesthesia/Blood Transfusion Reaction / Comment(s): Unsure if bolld has been recieved. Past Psychological History: Anxiety, Depression Additional Psychological History / Comment(s): Lives with her boyfriend. Works out of the home. Does not relate to children. No international travel. The experience. No animals in the home Smoking Status: Never smoker Past Alcohol Use History: Rare Past Drug Use History: Marijuana Medications and Allergies Home Medications Medication Instructions Recorded Confirmed Type Acetaminophen with Codeine 1 tab PO Q6H PRN 3 Days #12 tab 04/29/18 05/31/18 Rx [Tylenol w/codeine #3] Empagliflozin [Jardiance] 10 mg PO DAILY 04/29/18 05/31/18 History metFORMIN HCL ER [Glucophage Xr] 1,000 mg PO AC-BID 04/29/18 05/31/18 History Docusate [Colace] 100 mg PO DAILY 05/31/18 05/31/18 History Ibuprofen [Motrin] 600 mg PO Q6HR PRN 05/31/18 05/31/18 History oxyCODONE HCL [OxyIR] 5 mg PO Q4H PRN 05/31/18 05/31/18 History Allergies Allergy/AdvReac Type Severity Reaction Status Date / Time latex Allergy Rash/Hives Verified 05/31/18 07:11 prednisone AdvReac Hallucinati Verified 05/31/18 07:11 ons Physical Exam Vitals: Vital Signs Temp Pulse Resp BP Pulse Ox 06/04/18 08:30 97.7 F 112 H 20 102/57 93 L 06/04/18 06:03 98.2 F 118 H 20 129/79 93 L 06/03/18 23:52 120 H 18 142/81 94 L 06/03/18 21:30 98.7 F 118 H 20 128/76 93 L 06/03/18 15:03 124 H 18 06/03/18 15:00 97.1 F L 124 H 18 147/51 93 L 06/03/18 12:00 112 H 16 06/03/18 11:32 112 H 16 137/68 96 Intake and Output 06/03/18 06/04/18 06/04/18 22:59 06:59 14:59 Intake Total 50 Output Total 0 Balance 0 50 Intake: IV 50 Output: Urine 0 Other: Voiding Method Indwelling Catheter Indwelling Catheter # Voids 0 # Bowel Movements 1 Weight 88.7 kg 91.5 kg Results - Lab Results Most recent lab results Calcium 11.9 mg/dL (8.4-10.2) H 06/04/18 05:47 Phosphorus 5.0 mg/dL (2.5-4.5) H 06/03/18 17:06 Magnesium 2.1 mg/dL (1.6-2.3) 06/03/18 17:06 06/04/18 05:47 06/04/18 05:47 Assessment and Plan Plan: Assessment: 1. Oliguric acute kidney injury secondary to ATN secondary to vancomycin toxicity. Additionally the patient received IV contrast dye on May 31 for CTA. Baseline creatinine is near 1. It is elevated at 4.27 today. No evidence of hydronephrosis noted on imaging. 2. Hyperkalemia secondary to acute kidney injury and metabolic acidosis. 3. Metabolic acidosis secondary to acute kidney injury. 4. Recently diagnosed ovarian cancer. Patient not on chemotherapy yet. 5. Hypercalcemia secondary to malignancy. 6. Hyperuricemia status post rasburicase and is on June 03. Plan: 10 units of IV insulin with an amp of D50 now. 1 g of IV calcium gluconate now. 3 amp of sodium bicarbonate IV push now. Discontinue normal saline. Start isotonic sodium bicarbonate drip to be run at 50 mL an hour. Maintain calcitonin twice daily for now. 60 mg pamidronate IV once today. Due to oliguria along with hyperkalemia and metabolic acidosis, I will initiate renal replacement therapy. Patient had a groin catheter placed this morning. First treatment of hemodialysis today and second treatment tomorrow. Continue to monitor renal function and urine output closely. Discontinue metformin and jardiance as GFR is less than 30. Thank you for the consultation. I will continue to follow the patient with you during her hospital stay.
--- NOTE | 2018-06-04 10:16 | P.PN ---
Subjective Principal diagnosis: This continue present 28-year-old white female essentially admitted for ovarian cancer and systemic inflammatory response. She is complaining of significant anuria dysuria. This can impression a 20-year-old white female essentially admitted for acute kidney injury and history of metastatic ovarian cancer. The patient is quite lethargic today and has had minimal urine output. Oliguria is noted long discussion with nephrology as noted. She'll placed on emergent dialysis. Objective - Vital Signs Vital signs: Vital Signs Temp 97.7 F 06/04/18 08:30 Pulse 112 H 06/04/18 08:30 Resp 20 06/04/18 08:30 BP 102/57 06/04/18 08:30 Pulse Ox 93 L 06/04/18 08:30 Intake & Output 06/03/18 06/04/18 06/04/18 18:59 06:59 18:59 Intake Total 500 50 Output Total 0 Balance 500 0 50 Weight 88.7 kg 91.5 kg Intake: IV 50 Intake, IV Titration 500 Amount Piperacillin-Tazobactam 3 100 .375 gm In Sodium Chloride 0.9% 100 ml @ 25 mls/hr IVPB Q8H DIANE Rx#: [id number] Sodium Chloride 0.9% 1, 150 000 ml @ 75 mls/hr IV . [id number] DIANE Rx#:[id number] Vancomycin 1,500 mg In 250 Sodium Chloride 0.9% 250 ml @ 125 mls/hr IVPB Q8H DIANE Rx#:[id number] Output: Urine 0 Other: Voiding Method Toilet Indwelling Catheter # Voids 0 # Bowel Movements 1 - Constitutional General appearance: Present: average body habitus - EENT Eyes: Absent: abnormal pupil - Respiratory Respiratory: bilateral: CTA - Cardiovascular Rhythm: regular Heart sounds: normal: S1, S2 - Gastrointestinal General gastrointestinal: Present: soft. Absent: tenderness - Neurologic Neurologic: Present: CNII-XII intact - Musculoskeletal Musculoskeletal: Absent: gait normal - Labs CBC & Chem 7: 06/04/18 05:47 06/04/18 05:47 Labs: Abnormal Lab Results - Last 24 Hours (Table) 06/02/18 06/02/18 06/03/18 Range/Units 05:30 05:30 09:00 WBC (3.8-10.6) k/uL RBC (3.80-5.40) m/uL Hgb (11.4-16.0) gm/dL Hct (34.0-46.0) % MCHC (31.0-37.0) g/dL Plt Count (150-450) k/uL Neutrophils # (1.3-7.7) k/uL Neutrophils # (Manual) (1.3-7.7) k/uL Lymphocytes # (Manual) (1.0-4.8) k/uL Monocytes # (0-1.0) k/uL Monocytes # (Manual) (0-1.0) k/uL Eosinophils # (Manual) (0-0.7) k/uL Metamyelocytes # (Man) (0) k/uL Myelocytes # (Manual) (0) k/uL Sodium 136 L (137-145) mmol/L Potassium 5.2 H (3.5-5.1) mmol/L Carbon Dioxide 18 L (22-30) mmol/L BUN 35 H (7-17) mg/dL Creatinine 3.17 H (0.52-1.04) mg/dL Glucose 112 H (74-99) mg/dL Uric Acid (3.7-7.4) mg/dL Calcium 12.1 H (8.4-10.2) mg/dL Ionized Calcium Rafiq (4.5-5.3) mg/dL Phosphorus (2.5-4.5) mg/dL Iron 10 L (50-170) ug/dL TIBC 206 L (228-460) ug/dL Iron Saturation 4.85 L (12.00-45.00) Ferritin 371.3 H (10.0-291.0) ng/mL Total Bilirubin 3.0 H (0.2-1.3) mg/dL AST 262 H (14-36) U/L ALT 59 H (9-52) U/L Alkaline Phosphatase 496 H (38-126) U/L Albumin 3.1 L (3.5-5.0) g/dL CA 125 Antigen 131.6 H (0.0-30.1) U/mL Vitamin B12 1010.0 H (200.0-944.0) pg/mL Vancomycin Trough ug/mL 06/03/18 06/03/18 06/03/18 Range/Units 09:00 09:00 17:06 WBC 20.3 H (3.8-10.6) k/uL RBC 2.95 L (3.80-5.40) m/uL Hgb 8.3 L (11.4-16.0) gm/dL Hct 28.6 L (34.0-46.0) % MCHC 28.9 L (31.0-37.0) g/dL Plt Count 510 H (150-450) k/uL Neutrophils # 16.3 H (1.3-7.7) k/uL Neutrophils # (Manual) 16.60 H (1.3-7.7) k/uL Lymphocytes # (Manual) (1.0-4.8) k/uL Monocytes # 1.2 H (0-1.0) k/uL Monocytes # (Manual) 1.04 H (0-1.0) k/uL Eosinophils # (Manual) 0.83 H (0-0.7) k/uL Metamyelocytes # (Man) (0) k/uL Myelocytes # (Manual) (0) k/uL Sodium (137-145) mmol/L Potassium (3.5-5.1) mmol/L Carbon Dioxide (22-30) mmol/L BUN (7-17) mg/dL Creatinine (0.52-1.04) mg/dL Glucose (74-99) mg/dL Uric Acid (3.7-7.4) mg/dL Calcium (8.4-10.2) mg/dL Ionized Calcium Rafiq (4.5-5.3) mg/dL Phosphorus (2.5-4.5) mg/dL Iron (50-170) ug/dL TIBC (228-460) ug/dL Iron Saturation (12.00-45.00) Ferritin (10.0-291.0) ng/mL Total Bilirubin (0.2-1.3) mg/dL AST (14-36) U/L ALT (9-52) U/L Alkaline Phosphatase (38-126) U/L Albumin (3.5-5.0) g/dL CA 125 Antigen (0.0-30.1) U/mL Vitamin B12 (200.0-944.0) pg/mL Vancomycin Trough 65.9 H* ug/mL 06/03/18 06/04/18 06/04/18 Range/Units 17:06 05:47 05:47 WBC 22.9 H (3.8-10.6) k/uL RBC 2.79 L (3.80-5.40) m/uL Hgb 7.7 L (11.4-16.0) gm/dL Hct 27.4 L (34.0-46.0) % MCHC 28.1 L (31.0-37.0) g/dL Plt Count 613 H (150-450) k/uL Neutrophils # (1.3-7.7) k/uL Neutrophils # (Manual) 20.80 H (1.3-7.7) k/uL Lymphocytes # (Manual) 0.92 L (1.0-4.8) k/uL Monocytes # (0-1.0) k/uL Monocytes # (Manual) (0-1.0) k/uL Eosinophils # (Manual) (0-0.7) k/uL Metamyelocytes # (Man) 0.46 H (0) k/uL Myelocytes # (Manual) 0.23 H (0) k/uL Sodium 136 L 136 L (137-145) mmol/L Potassium 5.7 H 6.7 H* (3.5-5.1) mmol/L Carbon Dioxide 15 L 12 L (22-30) mmol/L BUN 37 H 44 H (7-17) mg/dL Creatinine 3.82 H 4.27 H (0.52-1.04) mg/dL Glucose (74-99) mg/dL Uric Acid 14.2 H 9.9 H (3.7-7.4) mg/dL Calcium 12.5 H 11.9 H (8.4-10.2) mg/dL Ionized Calcium Rafiq 6.6 H* (4.5-5.3) mg/dL Phosphorus 5.0 H (2.5-4.5) mg/dL Iron (50-170) ug/dL TIBC (228-460) ug/dL Iron Saturation (12.00-45.00) Ferritin (10.0-291.0) ng/mL Total Bilirubin 3.0 H 2.9 H (0.2-1.3) mg/dL AST 281 H 386 H (14-36) U/L ALT 62 H 77 H (9-52) U/L Alkaline Phosphatase 490 H 419 H (38-126) U/L Albumin 3.3 L 3.3 L (3.5-5.0) g/dL CA 125 Antigen (0.0-30.1) U/mL Vitamin B12 (200.0-944.0) pg/mL Vancomycin Trough ug/mL Microbiology - Last 24 Hours (Table) 06/02/18 12:24 Blood Culture - Preliminary Blood No Growth after 24 hours 06/02/18 12:29 Blood Culture - Preliminary Blood No Growth after 24 hours Assessment and Plan (1) Acute renal failure Current Visit: Yes Status: Acute Code(s): N17.9 - ACUTE KIDNEY FAILURE, UNSPECIFIED SNOMED Code(s): 01760700 (2) Abdominal pain Current Visit: Yes Status: Acute Code(s): R10.9 - UNSPECIFIED ABDOMINAL PAIN SNOMED Code(s): 62101454 (3) Ovarian cancer Current Visit: Yes Status: Acute Code(s): C56.9 - MALIGNANT NEOPLASM OF UNSPECIFIED OVARY SNOMED Code(s): 712980861 (4) SIRS (systemic inflammatory response syndrome) Current Visit: Yes Status: Acute Code(s): R65.10 - SIRS OF NON-INFECTIOUS ORIGIN W/O ACUTE ORGAN DYSFUNCTION SNOMED Code(s): 768960960 Plan: Appreciate nephrology input. Prognosis is guarded secondary to her multiple comorbidities including metastatic ovarian cancer with acute renal failure. Check CBC and CMP in a.m. See orders otherwise. Time with Patient: Less than 30
[2018-06-04 11:12] LABS: Glucose,Whole Blood 62 mg/dL (75-99)
[2018-06-04] MEDS: SENNOSIDES-DOCUSATE SODIUM 1 EACH TAB PO SCH ×2 (11:37→21:11)
[2018-06-04] MEDS: POLYETHYLENE GLYCOL 3350 17 GM POWD.PACK PO SCH ×2 (11:37→21:11)
[2018-06-04 11:42] LABS: Glucose,Whole Blood 62 mg/dL (75-99)
[2018-06-04 12:05] LABS: Glucose,Whole Blood 61 mg/dL (75-99)
[2018-06-04 12:31] LABS: Glucose,Whole Blood 66 mg/dL (75-99)
[2018-06-04 12:48] LABS: Glucose,Whole Blood 67 mg/dL (75-99)
[2018-06-04 13:16] LABS: Glucose,Whole Blood 125 mg/dL (75-99)
[2018-06-04] MEDS: DEXTROSE 5% IN WATER 1,000 ML with SODIUM BICARB (1 MEQ/ML) 150 ML IV SCH (14:36)
[2018-06-04 16:15] LABS: Glucose,Whole Blood 81 mg/dL (75-99)
--- NOTE | 2018-06-04 16:38 | P.PN ---
Subjective Progress Note Date: 06/04/18 Pleasant 28-year-old female who has a history of ovarian cancer first diagnosed at the age of 22 was cared for in the [facility] where she underwent her original surgery and chemotherapy. She relates that she was doing well at the 5 year checkup however she then developed significant ongoing symptoms with abdominal pain. Workup has been done and there is evidence of recurrence of her ovarian cancer. She was having increasing amounts of discomfort abdominally as well as into the bilateral rib cage area for which she sought care. She's had CAT scans performed showing evidence of rapidly increasing tumor metastasis intra-abdominally, liver as well as lung. She was cared for surgically on 05/21/2018 where tumor resection was attempted but apparently due to adhesions incomplete resection occurred. Since then she's had increasing amounts of abdominal pain and noted increasing pleural pain which is why she sought care in hospital. She's been seen by oncology to consult is awaited. The patient relates that she was to start chemotherapy on 06/18/2018. She is denying severe amounts of fever or chills but does have increasing abdominal pain. She has early satiety with any attempts of eating but is not having active nausea or emesis. She's had some constipation that she relieves with suppositories and an ongoing basis. She denies hematemesis, melena or hematochezia at this time. Her pain is still only modestly controlled currently between a 4 and a 6 most of the time. She does seem aware of the progressive nature of her disease, and the fact that she recurred late. 06/04/2018 patient feeling very poorly over the last day. This developed rapid renal failure, acute in nature. She's now been seen by nephrology and dialysis catheter has been placed and she has been initiated to renal replacement therapy. Plans for the treatment for the next 3 days as per the dialysis nurse. Patient feels poorly Objective - Vital Signs Vital signs: Vital Signs Temp 97.2 F L 06/04/18 12:39 Pulse 118 H 06/04/18 12:39 Resp 20 06/04/18 12:39 BP 116/73 06/04/18 12:39 Pulse Ox 93 L 06/04/18 12:39 Intake & Output 06/03/18 06/04/18 06/04/18 18:59 06:59 18:59 Intake Total 500 290 Output Total 0 Balance 500 0 290 Weight 88.7 kg 91.5 kg Intake: IV 50 Intake, IV Titration 500 Amount Piperacillin-Tazobactam 3 100 .375 gm In Sodium Chloride 0.9% 100 ml @ 25 mls/hr IVPB Q8H [facility] Rx#: [id number] Sodium Chloride 0.9% 1, 150 000 ml @ 75 mls/hr IV . [id number] [facility] Rx#:[id number] Vancomycin 1,500 mg In 250 Sodium Chloride 0.9% 250 ml @ 125 mls/hr IVPB Q8H [facility] Rx#:[id number] Oral 240 Output: Urine 0 Other: Voiding Method Toilet Indwelling Catheter Indwelling Catheter # Voids 0 2 # Bowel Movements 1 - Exam 28-year-old female looks older than her stated age has pallorand feels poorly HEENT: Anicteric conjunctiva are pink and moist nasal mucosa grossly intact without significant lesions, there is no thrush. Poor dentition Neck: The neck is supple without significant lymphadenopathy or thyromegaly. Lungs: Good bilateral air entry without significant crackles or wheezing. She does have ability to have diminished deep inspiration with some few crackles at the bilateral bases Heart: Regular rate and rhythm with an audible S1-S2, no S3 no S4. There is no significant murmur click or rub, PMI was nondisplaced. Abdomen: Mildly distended, is not distinctly painful on exam Extremities: The upper extremities have excellent pulses they are symmetric, no significant petechiae or telangiectasia. No splinter hemorrhages were noted. The lower extremities are free from significant edema. The peripheral pulses were 2+ and symmetric.new femoral dialysis catheter in place Neuro: Awake alert oriented to person place and time. There are no acute new gross focal sensory motor deficits. - Labs CBC & Chem 7: 06/04/18 05:47 06/04/18 15:27 Labs: Abnormal Lab Results - Last 24 Hours (Table) 06/03/18 06/03/18 06/04/18 Range/Units 17:06 17:06 05:47 WBC 20.3 H (3.8-10.6) k/uL RBC 2.95 L (3.80-5.40) m/uL Hgb 8.3 L (11.4-16.0) gm/dL Hct 28.6 L (34.0-46.0) % MCHC 28.9 L (31.0-37.0) g/dL Plt Count 510 H (150-450) k/uL Neutrophils # 16.3 H (1.3-7.7) k/uL Neutrophils # (Manual) (1.3-7.7) k/uL Lymphocytes # (Manual) (1.0-4.8) k/uL Monocytes # 1.2 H (0-1.0) k/uL Metamyelocytes # (Man) (0) k/uL Myelocytes # (Manual) (0) k/uL Sodium 136 L 136 L (137-145) mmol/L Potassium 5.7 H 6.7 H* (3.5-5.1) mmol/L Carbon Dioxide 15 L 12 L (22-30) mmol/L BUN 37 H 44 H (7-17) mg/dL Creatinine 3.82 H 4.27 H (0.52-1.04) mg/dL POC Glucose (mg/dL) (75-99) mg/dL Uric Acid 14.2 H 9.9 H (3.7-7.4) mg/dL Calcium 12.5 H 11.9 H (8.4-10.2) mg/dL Ionized Calcium Rafiq 6.6 H* (4.5-5.3) mg/dL Phosphorus 5.0 H (2.5-4.5) mg/dL Total Bilirubin 3.0 H 2.9 H (0.2-1.3) mg/dL AST 281 H 386 H (14-36) U/L ALT 62 H 77 H (9-52) U/L Alkaline Phosphatase 490 H 419 H (38-126) U/L Albumin 3.3 L 3.3 L (3.5-5.0) g/dL 06/04/18 06/04/18 06/04/18 Range/Units 05:47 11:10 11:41 WBC 22.9 H (3.8-10.6) k/uL RBC 2.79 L (3.80-5.40) m/uL Hgb 7.7 L (11.4-16.0) gm/dL Hct 27.4 L (34.0-46.0) % MCHC 28.1 L (31.0-37.0) g/dL Plt Count 613 H (150-450) k/uL Neutrophils # (1.3-7.7) k/uL Neutrophils # (Manual) 20.80 H (1.3-7.7) k/uL Lymphocytes # (Manual) 0.92 L (1.0-4.8) k/uL Monocytes # (0-1.0) k/uL Metamyelocytes # (Man) 0.46 H (0) k/uL Myelocytes # (Manual) 0.23 H (0) k/uL Sodium (137-145) mmol/L Potassium (3.5-5.1) mmol/L Carbon Dioxide (22-30) mmol/L BUN (7-17) mg/dL Creatinine (0.52-1.04) mg/dL POC Glucose (mg/dL) 62 L 62 L (75-99) mg/dL Uric Acid (3.7-7.4) mg/dL Calcium (8.4-10.2) mg/dL Ionized Calcium Rafiq (4.5-5.3) mg/dL Phosphorus (2.5-4.5) mg/dL Total Bilirubin (0.2-1.3) mg/dL AST (14-36) U/L ALT (9-52) U/L Alkaline Phosphatase (38-126) U/L Albumin (3.5-5.0) g/dL 06/04/18 06/04/18 06/04/18 Range/Units 12:03 12:30 12:46 WBC (3.8-10.6) k/uL RBC (3.80-5.40) m/uL Hgb (11.4-16.0) gm/dL Hct (34.0-46.0) % MCHC (31.0-37.0) g/dL Plt Count (150-450) k/uL Neutrophils # (1.3-7.7) k/uL Neutrophils # (Manual) (1.3-7.7) k/uL Lymphocytes # (Manual) (1.0-4.8) k/uL Monocytes # (0-1.0) k/uL Metamyelocytes # (Man) (0) k/uL Myelocytes # (Manual) (0) k/uL Sodium (137-145) mmol/L Potassium (3.5-5.1) mmol/L Carbon Dioxide (22-30) mmol/L BUN (7-17) mg/dL Creatinine (0.52-1.04) mg/dL POC Glucose (mg/dL) 61 L 66 L 67 L (75-99) mg/dL Uric Acid (3.7-7.4) mg/dL Calcium (8.4-10.2) mg/dL Ionized Calcium Rafiq (4.5-5.3) mg/dL Phosphorus (2.5-4.5) mg/dL Total Bilirubin (0.2-1.3) mg/dL AST (14-36) U/L ALT (9-52) U/L Alkaline Phosphatase (38-126) U/L Albumin (3.5-5.0) g/dL 06/04/18 Range/Units 13:14 WBC (3.8-10.6) k/uL RBC (3.80-5.40) m/uL Hgb (11.4-16.0) gm/dL Hct (34.0-46.0) % MCHC (31.0-37.0) g/dL Plt Count (150-450) k/uL Neutrophils # (1.3-7.7) k/uL Neutrophils # (Manual) (1.3-7.7) k/uL Lymphocytes # (Manual) (1.0-4.8) k/uL Monocytes # (0-1.0) k/uL Metamyelocytes # (Man) (0) k/uL Myelocytes # (Manual) (0) k/uL Sodium (137-145) mmol/L Potassium (3.5-5.1) mmol/L Carbon Dioxide (22-30) mmol/L BUN (7-17) mg/dL Creatinine (0.52-1.04) mg/dL POC Glucose (mg/dL) 125 H (75-99) mg/dL Uric Acid (3.7-7.4) mg/dL Calcium (8.4-10.2) mg/dL Ionized Calcium Rafiq (4.5-5.3) mg/dL Phosphorus (2.5-4.5) mg/dL Total Bilirubin (0.2-1.3) mg/dL AST (14-36) U/L ALT (9-52) U/L Alkaline Phosphatase (38-126) U/L Albumin (3.5-5.0) g/dL Microbiology - Last 24 Hours (Table) 06/02/18 12:24 Blood Culture - Preliminary Blood No Growth after 48 hours 06/02/18 12:29 Blood Culture - Preliminary Blood No Growth after 48 hours Laboratory Results WBC 22.9 k/uL (3.8-10.6) H 06/04/18 05:47 RBC 2.79 m/uL (3.80-5.40) L 06/04/18 05:47 Hgb 7.7 gm/dL (11.4-16.0) L 06/04/18 05:47 Hct 27.4 % (34.0-46.0) L 06/04/18 05:47 MCV 98.3 fL (80.0-100.0) 06/04/18 05:47 MCH 27.6 pg (25.0-35.0) 06/04/18 05:47 MCHC 28.1 g/dL (31.0-37.0) L 06/04/18 05:47 RDW 13.8 % (11.5-15.5) 06/04/18 05:47 Plt Count 613 k/uL (150-450) H 06/04/18 05:47 Neutrophils % 80 % 06/03/18 17:06 Neutrophils % (Manual) 88 % 06/04/18 05:47 Band Neutrophils % 3 % 06/04/18 05:47 Lymphocytes % 10 % 06/03/18 17:06 Lymphocytes % (Manual) 4 % 06/04/18 05:47 Monocytes % 6 % 06/03/18 17:06 Monocytes % (Manual) 3 % 06/04/18 05:47 Eosinophils % 1 % 06/03/18 17:06 Eosinophils % (Manual) 4 % 06/03/18 09:00 Basophils % 0 % 06/03/18 17:06 Metamyelocytes % 2 % 06/04/18 05:47 Myelocytes % 1 % 06/04/18 05:47 Neutrophils # 16.3 k/uL (1.3-7.7) H 06/03/18 17:06 Neutrophils # (Manual) 20.80 k/uL (1.3-7.7) H 06/04/18 05:47 Lymphocytes # 2.0 k/uL (1.0-4.8) 06/03/18 17:06 Lymphocytes # (Manual) 0.92 k/uL (1.0-4.8) L 06/04/18 05:47 Monocytes # 1.2 k/uL (0-1.0) H 06/03/18 17:06 Monocytes # (Manual) 0.69 k/uL (0-1.0) 06/04/18 05:47 Eosinophils # 0.3 k/uL (0-0.7) 06/03/18 17:06 Eosinophils # (Manual) 0.83 k/uL (0-0.7) H 06/03/18 09:00 Basophils # 0.1 k/uL (0-0.2) 06/03/18 17:06 Metamyelocytes # (Man) 0.46 k/uL (0) H 06/04/18 05:47 Myelocytes # (Manual) 0.23 k/uL (0) H 06/04/18 05:47 Nucleated RBCs 0 /100 WBC (0-0) 06/04/18 05:47 Manual Slide Review Performed 06/03/18 09:00 Toxic Granulation Present 06/03/18 09:00 Polychromasia Present 06/04/18 05:47 Hypochromasia Marked 06/04/18 05:47 PT 10.5 sec (9.0-12.0) 05/31/18 06:59 INR 1.0 (<1.2) 05/31/18 06:59 APTT 24.1 sec (22.0-30.0) 05/31/18 06:59 Sodium 136 mmol/L (137-145) L 06/04/18 05:47 Potassium 5.0 mmol/L (3.5-5.1) 06/04/18 15:27 Chloride 103 mmol/L (98-107) 06/04/18 05:47 Carbon Dioxide 12 mmol/L (22-30) L 06/04/18 05:47 Anion Gap 21 mmol/L 06/04/18 05:47 BUN 44 mg/dL (7-17) H 06/04/18 05:47 Creatinine 4.27 mg/dL (0.52-1.04) H 06/04/18 05:47 Est GFR (CKD-EPI)AfAm 15 (>60 ml/min/1.73 sqM) 06/04/18 05:47 Est GFR (CKD-EPI)NonAf 13 (>60 ml/min/1.73 sqM) 06/04/18 05:47 Glucose 92 mg/dL (74-99) 06/04/18 05:47 POC Glucose (mg/dL) 81 mg/dL (75-99) 06/04/18 16:14 POC Glu Ret[employer] Samia Toney 06/04/18 16:14 Uric Acid 9.9 mg/dL (3.7-7.4) H 06/04/18 05:47 Calcium 11.9 mg/dL (8.4-10.2) H 06/04/18 05:47 Ionized Calcium Rafiq 6.6 mg/dL (4.5-5.3) H* 06/03/18 17:06 Phosphorus 5.0 mg/dL (2.5-4.5) H 06/03/18 17:06 Magnesium 2.1 mg/dL (1.6-2.3) 06/03/18 17:06 Iron 10 ug/dL (50-170) L 06/02/18 05:30 TIBC 206 ug/dL (228-460) L 06/02/18 05:30 Iron Saturation 4.85 (12.00-45.00) L 06/02/18 05:30 Ferritin 371.3 ng/mL (10.0-291.0) H 06/02/18 05:30 Total Bilirubin 2.9 mg/dL (0.2-1.3) H 06/04/18 05:47 Conjugated Bilirubin 0.9 mg/dL (0.0-0.3) H 06/02/18 05:30 Unconjugated Bilirubin 0.6 mg/dL (0.0-1.1) 06/02/18 05:30 Delta Bilirubin 1.4 mg/dL (0.0-0.2) H 06/02/18 05:30 AST 386 U/L (14-36) H 06/04/18 05:47 ALT 77 U/L (9-52) H 06/04/18 05:47 Alkaline Phosphatase 419 U/L (38-126) H 06/04/18 05:47 Total Creatine Kinase 280 U/L (30-135) H 05/31/18 06:59 CK-MB (CK-2) 17.5 ng/mL (0.0-2.4) H 05/31/18 06:59 CK-MB (CK-2) Rel Index 6.3 05/31/18 06:59 Troponin I <0.012 ng/mL (0.000-0.034) 05/31/18 06:59 Total Protein 6.7 g/dL (6.3-8.2) 06/04/18 05:47 Albumin 3.3 g/dL (3.5-5.0) L 06/04/18 05:47 CA 125 Antigen 131.6 U/mL (0.0-30.1) H 06/02/18 05:30 Vitamin B12 1010.0 pg/mL (200.0-944.0) H 06/02/18 05:30 Folate 4.5 ng/mL 06/02/18 05:30 Urine Color Yellow 05/31/18 15:00 Urine Appearance Clear (Clear) 05/31/18 15:00 Urine pH 5.0 (5.0-8.0) 05/31/18 15:00 Ur Specific [place] 1.045 (1.001-1.035) H 05/31/18 15:00 Urine Protein Trace (Negative) H 05/31/18 15:00 Urine Glucose (UA) 4+ (Negative) H 05/31/18 15:00 Urine Ketones 1+ (Negative) H 05/31/18 15:00 Urine Blood Trace (Negative) H 05/31/18 15:00 Urine Nitrite Negative (Negative) 05/31/18 15:00 Urine Bilirubin Negative (Negative) 05/31/18 15:00 Urine Urobilinogen <2.0 mg/dL (<2.0) 05/31/18 15:00 Ur Leukocyte Esterase Negative (Negative) 05/31/18 15:00 Urine RBC 7 /hpf (0-5) H 05/31/18 15:00 Urine WBC 9 /hpf (0-5) H 05/31/18 15:00 Ur Squamous Epith Cells 2 /hpf (0-4) 05/31/18 15:00 Urine Bacteria Occasional /hpf (None) H 05/31/18 15:00 Granular Casts 1 /lpf (0) 05/31/18 15:00 Urine Mucus Rare /hpf (None) H 05/31/18 15:00 Urine HCG, Qual Not Detected (Not Detectd) 05/31/18 15:00 Vancomycin Trough 65.9 ug/mL H* 06/03/18 09:00 Microbiology 06/02/18 12:24 Blood Blood Culture - Preliminary No Growth after 48 hours 06/02/18 12:29 Blood Blood Culture - Preliminary No Growth after 48 hours Assessment and Plan (1) Abdominal pain Current Visit: Yes Status: Acute Code(s): R10.9 - UNSPECIFIED ABDOMINAL PAIN SNOMED Code(s): 15789539 (2) Leukocytosis Narrative/Plan: 28-year-old male presents to Hospital with increasing abdominal pain not responding to oral medication she had at home. She is awake status post her laparoscopic converted to open abdominal procedure with failure to completely debulk tumor with evidence of multiple adhesions. Presents with increasing abdominal pain nausea and early satiety and feeling quite poorly overall. Pain control is marginal at is some Toradol to see if that cannot improve her discomforts. As far as antimicrobial therapy pending cultures given the stability leukocytosis and high risk for sepsis piperacillin tazobactam in addition to vancomycin are being utilized. Cultures were further help direct rapid de- escalation if possible. Oncology consult is in process and await further information from them regarding overall treatment plan has been outlined by her primary oncologist in the [place] area. The WBC will be tracked to ensure that it is improving with therapeutic intervention. 06/04/2018 is of the patient's status his markedly worsened. She has acute renal failure. Antibiotic therapy is adjusted upon consultation with pharmacy to the current renal dose.vancomycin has been discontinued. No positive cultures are noted at this point in time.she continues to have a leukocytosis that is multifactorial in counseling the Zosyn will continue for now. Current Visit: Yes Status: Acute Code(s): D72.829 - ELEVATED WHITE BLOOD CELL COUNT, UNSPECIFIED SNOMED Code(s): 391584524
[2018-06-04 20:02] LABS: Calcium 10.5 mg/dL (8.4-10.2); Potassium 5.5 mmol/L (3.5-5.1)
[2018-06-04 20:40] LABS: Glucose,Whole Blood 79 mg/dL (75-99)
[2018-06-04] MEDS ORDERED: PIPERACILLIN-TAZOBACTAM 2.25 GM in SODIUM CHLORIDE 0.9% 100 ML IVPB SCH (21:00)
[2018-06-05] MEDS: HEPARIN SODIUM,PORCINE 5,000 UNIT/ML 1 ML VIAL SQ SCH ×3 (00:31→15:17)
[2018-06-05 02:09] LABS: Glucose,Whole Blood 90 mg/dL (75-99)
[2018-06-05 06:01] LABS: Glucose,Whole Blood 87 mg/dL (75-99)
[2018-06-05 06:28] LABS: HCT 26.5 % (34.0-46.0); HGB 7.8 gm/dL (11.4-16.0); Hypochromasia Marked; MCH 27.6 pg (25.0-35.0); MCHC 29.7 g/dL (31.0-37.0); Platelet Count 607 k/uL (150-450); RBC 2.85 m/uL (3.80-5.40); RDW 13.7 % (11.5-15.5)
[2018-06-05 06:36] LABS: Calcium 10.5 mg/dL (8.4-10.2); Magnesium 2.2 mg/dL (1.6-2.3); Phosphorus 4.9 mg/dL (2.5-4.5); Potassium 5.3 mmol/L (3.5-5.1); Uric Acid 3.9 mg/dL (3.7-7.4)
[2018-06-05 06:39] LABS: MCV 92.9 fL (80.0-100.0)
[2018-06-05] MEDS: PANTOPRAZOLE 40 MG TABLET PO SCH (06:45)
[2018-06-05 06:58] LABS: Vancomycin,Random 62.5 ug/mL
[2018-06-05 07:17] LABS: Band Neutrophils % 1 %; Basophils # (M) 0.22 k/uL (0-0.2); Eosinophils # (M) 0.22 k/uL (0-0.7); Lymphocytes # (M) 0.66 k/uL (1.0-4.8); Monocytes # (M) 1.77 k/uL (0-1.0); Neutrophils % (M) 88 %; Nucleated Red Blood Cells 1 /100 WBC (0-0); Total Cells Counted 200; WBC 22.1 k/uL (3.8-10.6)
[2018-06-05 07:18] LABS: Polychromasia Present; Target Cells Present
[2018-06-05 07:19] LABS: Large Platelets Present
[2018-06-05] MEDS: SENNOSIDES-DOCUSATE SODIUM 1 EACH TAB PO SCH ×2 (07:56→21:55)
[2018-06-05] MEDS: POLYETHYLENE GLYCOL 3350 17 GM POWD.PACK PO SCH ×2 (07:56→21:55)
[2018-06-05] MEDS: PIPERACILLIN-TAZOBACTAM 3.375 GM in SODIUM CHLORIDE 0.9% 100 ML IVPB SCH ×2 (07:56→21:55)
[2018-06-05] MEDS: DOCUSATE 100 MG CAP PO SCH (07:56)
--- NOTE | 2018-06-05 08:41 | P.PN ---
Subjective Principal diagnosis: This continue present 28-year-old white female essentially admitted for ovarian cancer and systemic inflammatory response. She is complaining of significant anuria dysuria. This a continue process on a 20-year-old white female with history of ovarian cancer which is metastatic who was admitted for fever and has developed acute renal failure on dialysis. Appreciate multiple consultants input including nephrology, infectious disease with oncology. At this time, she is significantly lethargic. Objective - Vital Signs Vital signs: Vital Signs Temp 98.6 F 06/04/18 20:00 Pulse 114 H 06/05/18 04:00 Resp 18 06/05/18 04:00 BP 117/76 06/05/18 04:00 Pulse Ox 95 06/05/18 04:00 Intake & Output 06/04/18 06/05/18 06/05/18 18:59 06:59 18:59 Intake Total 370 Output Total 0 Balance 370 0 Weight 92.2 kg Intake: IV 50 Oral 320 Output: Urine 0 Stool 0 Other: Voiding Method Indwelling Catheter Indwelling Catheter # Voids 2 0 # Bowel Movements 1 - Constitutional General appearance: Present: average body habitus - EENT Eyes: Absent: abnormal pupil - Neck Neck: Absent: lymphadenopathy - Respiratory Respiratory: bilateral: CTA - Cardiovascular Details: Tachycardic Rhythm: regular Heart sounds: normal: S1, S2 - Gastrointestinal General gastrointestinal: Present: soft. Absent: tenderness - Labs CBC & Chem 7: 06/05/18 05:54 06/05/18 05:54 Labs: Abnormal Lab Results - Last 24 Hours (Table) 06/04/18 06/04/18 06/04/18 Range/Units 11:10 11:41 12:03 WBC (3.8-10.6) k/uL RBC (3.80-5.40) m/uL Hgb (11.4-16.0) gm/dL Hct (34.0-46.0) % MCHC (31.0-37.0) g/dL Plt Count (150-450) k/uL Neutrophils # (Manual) (1.3-7.7) k/uL Lymphocytes # (Manual) (1.0-4.8) k/uL Monocytes # (Manual) (0-1.0) k/uL Basophils # (Manual) (0-0.2) k/uL Nucleated RBCs (0-0) /100 WBC Sodium (137-145) mmol/L Potassium (3.5-5.1) mmol/L Chloride (98-107) mmol/L Carbon Dioxide (22-30) mmol/L BUN (7-17) mg/dL Creatinine (0.52-1.04) mg/dL POC Glucose (mg/dL) 62 L 62 L 61 L (75-99) mg/dL Calcium (8.4-10.2) mg/dL Phosphorus (2.5-4.5) mg/dL Random Vancomycin ug/mL 06/04/18 06/04/18 06/04/18 Range/Units 12:30 12:46 13:14 WBC (3.8-10.6) k/uL RBC (3.80-5.40) m/uL Hgb (11.4-16.0) gm/dL Hct (34.0-46.0) % MCHC (31.0-37.0) g/dL Plt Count (150-450) k/uL Neutrophils # (Manual) (1.3-7.7) k/uL Lymphocytes # (Manual) (1.0-4.8) k/uL Monocytes # (Manual) (0-1.0) k/uL Basophils # (Manual) (0-0.2) k/uL Nucleated RBCs (0-0) /100 WBC Sodium (137-145) mmol/L Potassium (3.5-5.1) mmol/L Chloride (98-107) mmol/L Carbon Dioxide (22-30) mmol/L BUN (7-17) mg/dL Creatinine (0.52-1.04) mg/dL POC Glucose (mg/dL) 66 L 67 L 125 H (75-99) mg/dL Calcium (8.4-10.2) mg/dL Phosphorus (2.5-4.5) mg/dL Random Vancomycin ug/mL 06/04/18 06/05/18 06/05/18 Range/Units 19:27 05:54 05:54 WBC 22.1 H (3.8-10.6) k/uL RBC 2.85 L (3.80-5.40) m/uL Hgb 7.8 L (11.4-16.0) gm/dL Hct 26.5 L (34.0-46.0) % MCHC 29.7 L (31.0-37.0) g/dL Plt Count 607 H (150-450) k/uL Neutrophils # (Manual) 19.60 H (1.3-7.7) k/uL Lymphocytes # (Manual) 0.66 L (1.0-4.8) k/uL Monocytes # (Manual) 1.77 H (0-1.0) k/uL Basophils # (Manual) 0.22 H (0-0.2) k/uL Nucleated RBCs 1 H (0-0) /100 WBC Sodium 134 L 133 L (137-145) mmol/L Potassium 5.5 H 5.3 H (3.5-5.1) mmol/L Chloride 95 L (98-107) mmol/L Carbon Dioxide 18 L 20 L (22-30) mmol/L BUN 38 H 42 H (7-17) mg/dL Creatinine 3.51 H 4.51 H (0.52-1.04) mg/dL POC Glucose (mg/dL) (75-99) mg/dL Calcium 10.5 H 10.5 H (8.4-10.2) mg/dL Phosphorus 4.9 H (2.5-4.5) mg/dL Random Vancomycin 62.5 H* ug/mL Microbiology - Last 24 Hours (Table) 06/02/18 12:24 Blood Culture - Preliminary Blood No Growth after 48 hours 06/02/18 12:29 Blood Culture - Preliminary Blood No Growth after 48 hours Assessment and Plan (1) Acute renal failure Current Visit: Yes Status: Acute Code(s): N17.9 - ACUTE KIDNEY FAILURE, UNSPECIFIED SNOMED Code(s): 73963510 (2) Abdominal pain Current Visit: Yes Status: Acute Code(s): R10.9 - UNSPECIFIED ABDOMINAL PAIN SNOMED Code(s): 70183078 (3) Ovarian cancer Current Visit: Yes Status: Acute Code(s): C56.9 - MALIGNANT NEOPLASM OF UNSPECIFIED OVARY SNOMED Code(s): 479988464 (4) SIRS (systemic inflammatory response syndrome) Current Visit: Yes Status: Acute Code(s): R65.10 - SIRS OF NON-INFECTIOUS ORIGIN W/O ACUTE ORGAN DYSFUNCTION SNOMED Code(s): 376077554 Plan: Continue nephrology support with dialysis. Check CBC and CMP in a.m. per Prognosis guarded secondary multiple comorbidities. Appreciate multiple inputs from consultants.
[2018-06-05] MEDS ORDERED: LIDOCAINE 1% INJ 10MG/ML (20 ML MDV) ONE (09:20)
[2018-06-05] MEDS ORDERED: LIDOCAINE 1% INJ 10MG/ML (20 ML MDV) SQ ONE (10:02)
[2018-06-05] MEDS: CALCITONIN INJ 200 UNIT/ML (MDV) VIAL SQ SCH (10:34)
[2018-06-05] MEDS: DEXTROSE 5% IN WATER 1,000 ML with SODIUM BICARB (1 MEQ/ML) 150 ML IV SCH (10:34)
[2018-06-05] MEDS: ONDANSETRON 4 MG/2 ML VIAL IVP PRN (10:37)
[2018-06-05 11:27] LABS: Glucose,Whole Blood 85 mg/dL (75-99)
[2018-06-05 12:43] LABS: Hepatitis A Antibody IgM Non-Reactive (Non-Reactive); Hepatitis B Core IgM Non-Reactive (Non-Reactive)
--- NOTE | 2018-06-05 13:58 | P.PN ---
Subjective Progress Note Date: 06/05/18 Principal diagnosis: Acute renal failure, recurrent ovarian cancer Pt seen today in f/u, she is weak, general malaise, no appetite, tired, no fevers. Her abdomen is sensitive, her midline incision is healing well and so are the laproscopic incisions. 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 Nursing reported a blood clot in the taylor and some vaginal bleeding, pt states she is due to start menses Objective - Vital Signs Vital signs: Vital Signs Temp 98.7 F 06/05/18 11:29 Pulse 114 H 06/05/18 11:32 Resp 20 06/05/18 11:32 BP 136/78 06/05/18 11:29 Pulse Ox 94 L 06/05/18 11:29 Intake & Output 06/04/18 06/05/18 06/05/18 18:59 06:59 18:59 Intake Total 1170 200 Output Total 0 Balance 1170 0 200 Weight 92.2 kg Intake: IV 50 Intake, IV Titration 700 160 Amount Dextrose 5% in Water 1, 350 60 000 ml @ 50 mls/hr IV . Q23H [facility] with Sodium Bicarb (1 Meq/ml) 150 ml Rx#:[id number] Piperacillin-Tazobactam 3 100 100 .375 gm In Sodium Chloride 0.9% 100 ml @ 25 mls/hr IVPB Q12HR [facility] Rx #:[id number] Sodium Chloride 0.9% 250 250 ml @ 83 mls/hr IV .Q3H1M ONE with Pamidronate 60 mg Rx#:[id number] Oral 420 40 Output: Urine 0 Stool 0 Other: Voiding Method Indwelling Catheter Indwelling Catheter Indwelling Catheter # Voids 2 0 # Bowel Movements 1 - Constitutional General appearance: Present: average body habitus, no acute distress - EENT Eyes: Present: anicteric sclerae, EOMI ENT: Present: hearing grossly normal, normal oropharynx - Neck Neck: Absent: lymphadenopathy - Respiratory Respiratory: bilateral: CTA - Cardiovascular Details: mild tachycardia, no gallop or rub Heart sounds: normal: S1, S2 Abnormal Heart Sounds: Absent: systolic murmur, diastolic murmur, rub, S3 Gallop , S4 Gallop, click, other - Peripheral edema leg Peripheral Edema: bilateral: 1+ - Gastrointestinal Gastrointestinal Comment(s): midline and laproscopic incision steri strips intact, no evidence of dehisence, drainage, redness heat General gastrointestinal: Present: normal bowel sounds, tenderness - Integumentary Integumentary: Present: pale - Musculoskeletal Musculoskeletal: Present: generalized weakness - Psychiatric Psychiatric Comment(s): pt does drift off to sleep during discussion Psychiatric: Present: A&O x's 3, appropriate affect, intact judgment & insight - Labs CBC & Chem 7: 06/05/18 05:54 06/05/18 05:54 Labs: Abnormal Lab Results - Last 24 Hours (Table) 06/04/18 06/05/18 06/05/18 Range/Units 19:27 05:54 05:54 WBC 22.1 H (3.8-10.6) k/uL RBC 2.85 L (3.80-5.40) m/uL Hgb 7.8 L (11.4-16.0) gm/dL Hct 26.5 L (34.0-46.0) % MCHC 29.7 L (31.0-37.0) g/dL Plt Count 607 H (150-450) k/uL Neutrophils # (Manual) 19.60 H (1.3-7.7) k/uL Lymphocytes # (Manual) 0.66 L (1.0-4.8) k/uL Monocytes # (Manual) 1.77 H (0-1.0) k/uL Basophils # (Manual) 0.22 H (0-0.2) k/uL Nucleated RBCs 1 H (0-0) /100 WBC Sodium 134 L 133 L (137-145) mmol/L Potassium 5.5 H 5.3 H (3.5-5.1) mmol/L Chloride 95 L (98-107) mmol/L Carbon Dioxide 18 L 20 L (22-30) mmol/L BUN 38 H 42 H (7-17) mg/dL Creatinine 3.51 H 4.51 H (0.52-1.04) mg/dL Calcium 10.5 H 10.5 H (8.4-10.2) mg/dL Phosphorus 4.9 H (2.5-4.5) mg/dL Random Vancomycin 62.5 H* ug/mL Microbiology - Last 24 Hours (Table) 06/02/18 12:24 Blood Culture - Preliminary Blood No Growth after 48 hours 06/02/18 12:29 Blood Culture - Preliminary Blood No Growth after 48 hours Assessment and Plan (1) Acute renal failure Narrative/Plan: This is post operative. Nephrology is following, multiple treatments have been ordered for metabolic derangements, DRILL OPERATOR has been started, today will be 2nd course. Current Visit: Yes Status: Acute Priority: High Code(s): N17.9 - ACUTE KIDNEY FAILURE, UNSPECIFIED SNOMED Code(s): 17039717 (2) Ovarian cancer Narrative/Plan: Pt was treated for ovarian cancer back in 2012. Pt has recurrent, metastatic disease to lung and liver. Still awaiting surgical reports from pt surgeon. It is not clear to me at this time if additional biopsies are necessary to confirm disease or if the surgical pathology from last months procedure provides that information. At this time though, no chemotherapy treatment can be initiated due to ARF. We will follow along with you and update from an Oncology standpoint as more information becomes available. Chemo plans to follow based on renal recovery Current Visit: Yes Status: Chronic Priority: High Code(s): C56.9 - MALIGNANT NEOPLASM OF UNSPECIFIED OVARY SNOMED Code(s): 715340334 (3) Iron deficiency Narrative/Plan: Anemia work up does reveal iron deficiency but, with acute hepato/renal compromise and acute illness it is ok to hold off on supplementation at this time. Current Visit: Yes Status: Acute Priority: Medium Code(s): E61.1 - IRON DEFICIENCY SNOMED Code(s): 17642544
--- NOTE | 2018-06-05 14:13 | P.PN ---
Subjective Patient is seen in follow-up for acute kidney injury. Patient remains oliguric. She was started on hemodialysis on June 04. Etiology is vancomycin toxicity. Currently resting in bed. Oral intake is poor. Denies chest pain or shortness of breath. Feels tired. Vital signs are stable. General: The patient appeared well nourished and normally developed. HEENT: Head exam is unremarkable. Neck is without jugular venous distension. LUNGS: Lungs are clear to auscultation and percussion. Breath sounds decreased. HEART: Rate and Rhythm are regular. First and second heart sounds normal. No murmurs, rubs or gallops. ABDOMEN: Abdominal exam reveals normal bowel sounds. Non-tender and non- distended. No evidence of peritonitis. EXTREMITITES: Trace edema. Objective - Vital Signs Vital signs: Vital Signs Temp 98.7 F 06/05/18 11:29 Pulse 114 H 06/05/18 11:32 Resp 20 06/05/18 11:32 BP 136/78 06/05/18 11:29 Pulse Ox 94 L 06/05/18 11:29 Intake & Output 06/04/18 06/05/18 06/05/18 18:59 06:59 18:59 Intake Total 1170 200 Output Total 0 Balance 1170 0 200 Weight 92.2 kg Intake: IV 50 Intake, IV Titration 700 160 Amount Dextrose 5% in Water 1, 350 60 000 ml @ 50 mls/hr IV . Q23H DIANE with Sodium Bicarb (1 Meq/ml) 150 ml Rx#:[id number] Piperacillin-Tazobactam 3 100 100 .375 gm In Sodium Chloride 0.9% 100 ml @ 25 mls/hr IVPB Q12HR DIANE Rx #:[id number] Sodium Chloride 0.9% 250 250 ml @ 83 mls/hr IV .Q3H1M ONE with Pamidronate 60 mg Rx#:[id number] Oral 420 40 Output: Urine 0 Stool 0 Other: Voiding Method Indwelling Catheter Indwelling Catheter Indwelling Catheter # Voids 2 0 # Bowel Movements 1 - Labs CBC & Chem 7: 06/05/18 05:54 06/05/18 05:54 Labs: Abnormal Lab Results - Last 24 Hours (Table) 06/04/18 06/05/18 06/05/18 Range/Units 19:27 05:54 05:54 WBC 22.1 H (3.8-10.6) k/uL RBC 2.85 L (3.80-5.40) m/uL Hgb 7.8 L (11.4-16.0) gm/dL Hct 26.5 L (34.0-46.0) % MCHC 29.7 L (31.0-37.0) g/dL Plt Count 607 H (150-450) k/uL Neutrophils # (Manual) 19.60 H (1.3-7.7) k/uL Lymphocytes # (Manual) 0.66 L (1.0-4.8) k/uL Monocytes # (Manual) 1.77 H (0-1.0) k/uL Basophils # (Manual) 0.22 H (0-0.2) k/uL Nucleated RBCs 1 H (0-0) /100 WBC Sodium 134 L 133 L (137-145) mmol/L Potassium 5.5 H 5.3 H (3.5-5.1) mmol/L Chloride 95 L (98-107) mmol/L Carbon Dioxide 18 L 20 L (22-30) mmol/L BUN 38 H 42 H (7-17) mg/dL Creatinine 3.51 H 4.51 H (0.52-1.04) mg/dL Calcium 10.5 H 10.5 H (8.4-10.2) mg/dL Phosphorus 4.9 H (2.5-4.5) mg/dL Random Vancomycin 62.5 H* ug/mL Microbiology - Last 24 Hours (Table) 06/02/18 12:24 Blood Culture - Preliminary Blood No Growth after 48 hours 06/02/18 12:29 Blood Culture - Preliminary Blood No Growth after 48 hours Assessment and Plan Plan: Assessment: 1. Oliguric acute kidney injury secondary to ATN secondary to vancomycin toxicity. Additionally the patient received IV contrast dye on May 31 for CTA. Baseline creatinine is near 1. No evidence of hydronephrosis noted on imaging. Started on hemodialysis 06/04/2018. 2. Hyperkalemia secondary to acute kidney injury and metabolic acidosis. Better postdialysis. 3. Metabolic acidosis secondary to acute kidney injury. Better. 4. Recently diagnosed ovarian cancer. Patient not on chemotherapy yet. 5. Hypercalcemia secondary to malignancy. Status post pamidronate on June 04. 6. Hyperuricemia status post rasburicase on June 03. Resolved. 7. Mild hyperphosphatemia secondary to acute kidney injury. Phosphorus level 4.9 today. Monitor. Plan: Second treatment of hemodialysis today. Third treatment tomorrow. Maintain bicarbonate drip for the next 24 hours. Continue to monitor renal function and urine output closely. Maintain calcitonin for now.
--- NOTE | 2018-06-05 15:29 | IR ---
PICC LINE PLACEMENT: HISTORY: Infection requiring long-term antibiotic therapy PROCEDURE: Ultrasound and fluoroscopic guidance of PICC line placement. COMPLICATIONS: None ANESTHESIA: 1. 1% Lidocaine locally. FINDINGS/TECHNIQUE: The procedure was explained to the patient. The risks, complications, benefits and alternatives were discussed and any questions were answered. Informed consent was obtained. The patient was placed supine on the fluoroscopic table and prepped and draped in the usual sterile fash ion. Utilizing a 21 gauge needle and sonographic and fluoroscopic guidance, access in the left brac hial vein was achieved and there is placement of a 0.018 guidewire. The vein is patent. A 4-F sheat h was placed over the guidewire. The guidewire and dilator were removed and a 4-F. PICC line was zach nicolette through the sheath with the tip at the level of the SVC. The sheath was removed, the catheter wa s flushed and sutured into position. The patient was stable throughout the procedure and remained st able upon discharge from the Department of Radiology. The vein puncture was patent under ultrasound. A bruce scale image was obtained to document patency of the vein punctured. All elements of the maximal barrier technique were utilized. FLUOROSCOPY TIME: 0.7 minutes and one image submitted IMPRESSION: Successful PICC line placement under ultrasound and fluoroscopic guidance. Note is made there is no o riginal attempt at catheterization of the right brachial vein. There appear to be a stenosis at the l evel of the right axillary vein. Referring physician contacted and he request for vascular access on the left which was successful.
[2018-06-05 16:52] LABS: Albumin 3.1 g/dL (3.5-5.0); Bilirubin, Conjugated 1.5 mg/dL (0.0-0.3); Bilirubin, Delta 1.5 mg/dL (0.0-0.2); Bilirubin,Unconjugated 0.5 mg/dL (0.0-1.1); Total Bilirubin 3.5 mg/dL (0.2-1.3); Total Protein 6.4 g/dL (6.3-8.2); Uric Acid 2.1 mg/dL (3.7-7.4)
[2018-06-05 16:55] LABS: HCT 35.6 % (34.0-46.0); HGB 10.4 gm/dL (11.4-16.0); Hypochromasia Marked; MCH 27.3 pg (25.0-35.0); MCHC 29.3 g/dL (31.0-37.0); Mean Platelet Volume 7.9; Platelet Count 466 k/uL (150-450); RBC 3.83 m/uL (3.80-5.40); RDW 13.6 % (11.5-15.5); WBC 17.2 k/uL (3.8-10.6)
[2018-06-05 17:05] LABS: D-Dimer 17.7 mg/L FEU (<0.60); INR 1.9 (<1.2); Partial Thromboplastin Time 34.7 sec (22.0-30.0); Prothrombin Time 18.6 sec (9.0-12.0)
[2018-06-05 17:20] LABS: Band Neutrophils % 4 %; Basophils # (M) 0.34 k/uL (0-0.2); Eosinophils # (M) 0.17 k/uL (0-0.7); Lymphocytes # (M) 1.72 k/uL (1.0-4.8); Metamyelocytes # (M) 0.17 k/uL (0); Metamyelocytes % 1 %; Monocytes # (M) 0.69 k/uL (0-1.0); Neutrophils % (M) 78 %; Nucleated Red Blood Cells 0 /100 WBC (0-0); Total Cells Counted 100
[2018-06-05 17:40] LABS: Glucose,Whole Blood 82 mg/dL (75-99)
[2018-06-05] MEDS ORDERED: PHYTONADIONE 5 MG in SODIUM CHLORIDE 0.9% 50 ML IVPB STA (18:07)
[2018-06-05] MEDS: HYDROmorphone 2 MG TAB PO PRN (18:50)
[2018-06-05 20:58] LABS: Glucose,Whole Blood 105 mg/dL (75-99)
[2018-06-05 22:25] LABS: Glucose,Whole Blood 93 mg/dL (75-99)
[2018-06-06] MEDS ORDERED: NALOXONE 0.4 MG/ML 1 ML VIAL IV PRN (00:25)
[2018-06-06] MEDS: HEPARIN SODIUM,PORCINE 5,000 UNIT/ML 1 ML VIAL SQ SCH ×4 (00:57→23:50)
[2018-06-06] MEDS: CALCITONIN INJ 200 UNIT/ML (MDV) VIAL SQ SCH ×2 (00:57→10:15)
[2018-06-06 05:20] LABS: HCT 25.2 % (34.0-46.0); Hypochromasia Marked; MCH 27.8 pg (25.0-35.0); MCHC 30.3 g/dL (31.0-37.0); MCV 91.9 fL (80.0-100.0); Mean Platelet Volume 8.4; Platelet Count 507 k/uL (150-450); RBC 2.74 m/uL (3.80-5.40); RDW 13.8 % (11.5-15.5)
[2018-06-06 05:23] LABS: HGB 7.6 gm/dL (11.4-16.0)
[2018-06-06 05:27] LABS: Calcium 9.2 mg/dL (8.4-10.2); INR 1.1 (<1.2); Magnesium 2.1 mg/dL (1.6-2.3); Partial Thromboplastin Time 29.6 sec (22.0-30.0); Phosphorus 3.9 mg/dL (2.5-4.5); Potassium 4.9 mmol/L (3.5-5.1); Prothrombin Time 11.6 sec (9.0-12.0); Total Bilirubin 4.2 mg/dL (0.2-1.3); Total Protein 6.3 g/dL (6.3-8.2)
[2018-06-06 05:59] LABS: Band Neutrophils % 1 %; Eosinophils # (M) 0.42 k/uL (0-0.7); Lymphocytes # (M) 1.46 k/uL (1.0-4.8); Monocytes # (M) 2.29 k/uL (0-1.0); Myelocytes # (M) 0.62 k/uL (0); Myelocytes % 3 %; Neutrophils % (M) 77 %; Nucleated Red Blood Cells 1 /100 WBC (0-0); Polychromasia Present; Total Cells Counted 200; WBC 20.8 k/uL (3.8-10.6)
[2018-06-06] MEDS: PANTOPRAZOLE 40 MG TABLET PO SCH (07:02)
[2018-06-06 07:24] LABS: Glucose,Whole Blood 83 mg/dL (75-99)
[2018-06-06] MEDS: ONDANSETRON 4 MG/2 ML VIAL IVP PRN (07:45)
[2018-06-06] MEDS: DOCUSATE 100 MG CAP PO SCH (08:09)
[2018-06-06] MEDS: HYDROmorphone 2 MG TAB PO PRN ×2 (08:09→16:05)
[2018-06-06] MEDS: SENNOSIDES-DOCUSATE SODIUM 1 EACH TAB PO SCH ×2 (08:09→21:38)
--- NOTE | 2018-06-06 09:19 | XR ---
EXAMINATION TYPE: XR chest 1V DATE OF EXAM: 06/06/2018 COMPARISON: 06/03/2019 HISTORY: Pleural effusions TECHNIQUE: Single frontal view of the chest is obtained. FINDINGS: Bilateral consolidation and pleural effusion noted. Left-sided PICC line seen. No pneumoth orax. Heart size stable. IMPRESSION: 1. Stable x-ray demonstrating diffuse bilateral infiltrate and pleural effusion. Differential diagnos is includes diffuse pneumonia or pulmonary edema.
[2018-06-06 10:16] VITALS: BMI 36.9
[2018-06-06] MEDS: DEXTROSE 5% IN WATER 1,000 ML with SODIUM BICARB (1 MEQ/ML) 150 ML IV SCH (10:43)
[2018-06-06] MEDS: PIPERACILLIN-TAZOBACTAM 3.375 GM in SODIUM CHLORIDE 0.9% 100 ML IVPB SCH ×2 (10:43→21:38)
[2018-06-06] MEDS: POLYETHYLENE GLYCOL 3350 17 GM POWD.PACK PO SCH ×2 (10:43→21:43)
--- NOTE | 2018-06-06 10:48 | US ---
EXAMINATION TYPE: US venous doppler duplex LE BI DATE OF EXAM: 06/06/2018 10:08 AM COMPARISON: NONE CLINICAL HISTORY: dvt. ICU pt with ovarian ca SIDE PERFORMED: bilateral TECHNIQUE: The lower extremity deep venous system is examined utilizing real time linear array sonog mayank with graded compression, doppler sonography and color-flow sonography. VESSELS IMAGED: External Iliac Vein (EIV) Common Femoral Vein Deep Femoral Vein Greater Saphenous Vein * Femoral Vein Popliteal Vein Small Saphenous Vein * Proximal Calf Veins (* superficial vessels) Right Leg: Appears negative for DVT Left Leg: Appears negative for DVT IMPRESSION: 1. No diagnostic evidence of DVT as visualized.
[2018-06-06] MEDS: Acetaminophen-Codeine 300-30mg TAB PO PRN (11:48)
[2018-06-06 11:51] LABS: Glucose,Whole Blood 78 mg/dL (75-99)
--- NOTE | 2018-06-06 12:40 | P.CNPUL ---
History of Present Illness Consult date: 06/06/18 Requesting physician: Bakari Villalta Reason for consult: other (Epistaxis, possible DIC, metastatic ovarian cancer) Chief complaint: Shortness of breath History of present illness: This is a 28-year-old female with known history of ovarian cancer, diagnosed back in July of 2012. With grade 2 endometrioid ovarian carcinoma, underwent exploratory laparotomy right ovarian cystectomy, and lysis of adhesions on June 062012. Patient underwent adjuvant chemotherapy with 6 cycles of Taxol and carboplatin and she did well and remained in surveillance until recently. She was found to have suspicious cyst on her left ovary underwent exploratory laparotomy and she was advised to undergo neoadjuvant treatment with chemotherapy and total abdominal hysterectomy for what seemed to be residual uterus. Apparently her recent surgery was done at [facility] in [place]. Patient presented this time on 05/31/2018 with mostly complaints of shortness of breath and vague chest pain. Pain was pleuritic in nature, and she had a CT angiogram which came back negative for thromboembolic disease, but unfortunately she was found to have significant metastatic disease to the lungs. Actually her recurrent disease was documented on her last surgery from 05/21/2018. Patient was admitted and she was seen by many consultants since admission. Over the last few days since admission, there has been many issues including the fact that the patient clearly has evidence of metastatic ovarian cancer, she developed acute kidney injury, felt to be related to vancomycin could also be related to IV contrast media which she received for CT angiogram of the chest. Patient required dialysis catheter placement, and now she is on hemodialysis. She was confirmed to have possible metastatic disease to the liver and to the lungs, she was found to have evidence of bilateral pleural effusions, and likely fluid overload related to her acute kidney injury and renal failure. Patient also had issues related to epistaxis and hematuria, apparently there was a concern about possible DIC. The initial workup for DIC including platelets, pro time, PTT, and fibrinogen level clearly did not point to DIC. Her epistaxis did resolve on its own overnight. During my evaluation, the patient was complaining of generalized weakness, fatigue, some shortness of breath, she is on few liters nasal cannula , and O2 saturation is 94%. She is hemodynamically stable, and she has no active bleeding whatsoever. She does have a right femoral dialysis catheter in place. And she has a PICC line. Did not require any significant intervention since transfer to the ICU. Her hemoglobin was noted to be 7.6. Review of Systems 14 point review of systems were obtained, please refer to pertinent positives in HPI, otherwise remaining systems are negative. Past Medical History Past Medical History: Diabetes Mellitus Additional Past Medical History / Comment(s): ovarian cancer History of Any Multi-Drug Resistant Organisms: None Reported Additional Past Surgical History / Comment(s): right ovaries removed, mediport placed and removed; recent laparoscopy with conversion to laparotomy-unable to remove left ovary due to scar tissue. Additional Past Anesthesia/Blood Transfusion Reaction / Comment(s): Unsure if bolld has been recieved. Past Psychological History: Anxiety, Depression Additional Psychological History / Comment(s): Lives with her boyfriend. Works out of the home. Does not relate to children. No international travel. The experience. No animals in the home Smoking Status: Never smoker Past Alcohol Use History: Rare Past Drug Use History: Marijuana Medications and Allergies Home Medications Medication Instructions Recorded Confirmed Type Acetaminophen with Codeine 1 tab PO Q6H PRN 3 Days #12 tab 04/29/18 05/31/18 Rx [Tylenol w/codeine #3] Empagliflozin [Jardiance] 10 mg PO DAILY 04/29/18 05/31/18 History metFORMIN HCL ER [Glucophage Xr] 1,000 mg PO AC-BID 04/29/18 05/31/18 History Docusate [Colace] 100 mg PO DAILY 05/31/18 05/31/18 History Ibuprofen [Motrin] 600 mg PO Q6HR PRN 05/31/18 05/31/18 History oxyCODONE HCL [OxyIR] 5 mg PO Q4H PRN 05/31/18 05/31/18 History Allergies Allergy/AdvReac Type Severity Reaction Status Date / Time latex Allergy Rash/Hives Verified 05/31/18 07:11 prednisone AdvReac Hallucinati Verified 05/31/18 07:11 ons Physical Exam Vitals: Vital Signs Temp Pulse Pulse Resp BP BP Pulse Ox 06/06/18 12:00 97.5 F L 99 131/67 06/06/18 11:00 100 130/60 06/06/18 10:00 107 H 20 132/61 94 L 06/06/18 09:00 106 H 16 135/62 91 L 06/06/18 08:00 97.5 F L 108 H 23 137/68 94 L 06/06/18 07:00 111 H 15 132/64 92 L 06/06/18 06:00 101 H 16 133/61 93 L 06/06/18 05:00 101 H 15 129/68 92 L 06/06/18 04:00 97.7 F 104 H 17 113/80 94 L 06/06/18 03:00 101 H 19 111/57 96 06/06/18 02:00 101 H 16 120/62 97 06/06/18 01:00 97.9 F 105 H 17 138/68 96 06/06/18 00:30 110 H 20 129/63 95 06/06/18 00:00 109 H 29 H 129/58 91 L 06/05/18 23:30 106 H 13 128/51 90 L 06/05/18 23:00 109 H 18 127/68 92 L 06/05/18 22:30 98.0 F 109 H 18 131/66 90 L 06/05/18 21:05 111 H 118/72 06/05/18 20:49 109 H 18 125/75 06/05/18 20:00 98.1 F 111 H 18 124/76 92 L 06/05/18 15:54 98.4 F 109 H 20 148/74 92 L Intake and Output 06/05/18 06/06/18 06/06/18 22:59 06:59 14:59 Intake Total 350 275 350 Output Total 0 Balance 350 275 350 Intake: IV 275 350 Dextrose 5% in Water 1, 200 250 000 ml @ 50 mls/hr IV . Q23H DIANE with Sodium Bicarb (1 Meq/ml) 150 ml Rx#:[id number] Piperacillin-Tazobactam 3 75 100 .375 gm In Sodium Chloride 0.9% 100 ml @ 25 mls/hr IVPB Q12HR DIANE Rx #:[id number] Intake, IV Titration 350 Amount Dextrose 5% in Water 1, 200 000 ml @ 50 mls/hr IV . Q23H DIANE with Sodium Bicarb (1 Meq/ml) 150 ml Rx#:[id number] Phytonadione 5 mg In 50 Sodium Chloride 0.9% 50 ml @ 100 mls/hr IVPB ONCE STA Rx#:[id number] Piperacillin-Tazobactam 3 100 .375 gm In Sodium Chloride 0.9% 100 ml @ 25 mls/hr IVPB Q12HR [facility] Rx #:[id number] Output: Urine 0 Other: Voiding Method Toilet Toilet Toilet # Voids 1 Weight 97.7 kg 97.7 kg - Constitutional General appearance: Revealed a 28-year-old female, resident, pale looking, in mild distress. - EENT Eyes: EOMI, PERRLA, normal appearance, pale conjunctiva, no icterus. ENT: NA/AT, normal oropharynx - Neck No cervical adenopathy supple, dry mucous membranes. Neck: normal ROM - Respiratory Respiratory: Diminished breath sounds and crackles at the bases. No rhonchi no wheezes. - Cardiovascular Rhythm: regular Heart sounds: normal: S1, S2, no S3 gallop, no murmur. No rub. - Gastrointestinal Evidence of recent surgery incision cdi no erythema General gastrointestinal: distended, umbilical hernia - Integumentary Integumentary: pale - Neurologic Neurologic: CNII-XII intact - Musculoskeletal Musculoskeletal: generalized weakness, strength equal bilaterally - Psychiatric Psychiatric: A&O x's 3, appropriate affect, intact judgment & insight Results - Laboratory Findings CBC and BMP: 06/06/18 05:06 06/06/18 05:06 PT/INR, D-dimer PT 11.6 sec (9.0-12.0) 06/06/18 05:06 INR 1.1 (<1.2) 06/06/18 05:06 D-Dimer 17.70 mg/L FEU (<0.60) H 06/05/18 14:59 Abnormal lab findings: Abnormal Labs 05/31/18 05/31/18 05/31/18 06:59 06:59 06:59 WBC 21.2 H RBC 3.52 L Hgb 9.8 L D Hct 32.1 L MCHC 30.6 L Plt Count 548 H Neutrophils # 17.7 H Neutrophils # (Manual) Lymphocytes # (Manual) Monocytes # 1.2 H Monocytes # (Manual) Eosinophils # (Manual) Basophils # (Manual) Metamyelocytes # (Man) Myelocytes # (Manual) Nucleated RBCs Haptoglobin PT INR APTT Fibrinogen D-Dimer Sodium Potassium Chloride Carbon Dioxide BUN Creatinine Glucose 143 H POC Glucose (mg/dL) Uric Acid Calcium 11.2 H Ionized Calcium Rafiq Phosphorus Magnesium 1.5 L Iron TIBC Iron Saturation Ferritin Total Bilirubin 3.7 H Conjugated Bilirubin Delta Bilirubin AST 172 H ALT 59 H Alkaline Phosphatase 810 H Lactate Dehydrogenase Total Creatine Kinase 280 H CK-MB (CK-2) 17.5 H Albumin 3.3 L CA 125 Antigen Vitamin B12 Ur Specific [place] Urine Protein Urine Glucose (UA) Urine Ketones Urine Blood Urine RBC Urine WBC Urine Bacteria Urine Mucus Vancomycin Trough Random Vancomycin 05/31/18 05/31/18 05/31/18 12:35 15:00 16:02 WBC RBC Hgb Hct MCHC Plt Count Neutrophils # Neutrophils # (Manual) Lymphocytes # (Manual) Monocytes # Monocytes # (Manual) Eosinophils # (Manual) Basophils # (Manual) Metamyelocytes # (Man) Myelocytes # (Manual) Nucleated RBCs Haptoglobin PT INR APTT Fibrinogen D-Dimer Sodium Potassium Chloride Carbon Dioxide BUN Creatinine Glucose POC Glucose (mg/dL) 116 H 119 H Uric Acid Calcium Ionized Calcium Rafiq Phosphorus Magnesium Iron TIBC Iron Saturation Ferritin Total Bilirubin Conjugated Bilirubin Delta Bilirubin AST ALT Alkaline Phosphatase Lactate Dehydrogenase Total Creatine Kinase CK-MB (CK-2) Albumin CA 125 Antigen Vitamin B12 Ur Specific [place] 1.045 H Urine Protein Trace H Urine Glucose (UA) 4+ H Urine Ketones 1+ H Urine Blood Trace H Urine RBC 7 H Urine WBC 9 H Urine Bacteria Occasional H Urine Mucus Rare H Vancomycin Trough Random Vancomycin 05/31/18 06/01/18 06/01/18 20:41 05:41 05:41 WBC 16.2 H RBC 3.29 L Hgb 9.5 L Hct 30.6 L MCHC 30.9 L Plt Count 568 H Neutrophils # 12.3 H Neutrophils # (Manual) Lymphocytes # (Manual) Monocytes # 1.3 H Monocytes # (Manual) Eosinophils # (Manual) Basophils # (Manual) Metamyelocytes # (Man) Myelocytes # (Manual) Nucleated RBCs Haptoglobin PT INR APTT Fibrinogen D-Dimer Sodium Potassium Chloride Carbon Dioxide BUN Creatinine 0.50 L Glucose 135 H POC Glucose (mg/dL) 147 H Uric Acid Calcium 11.6 H Ionized Calcium Rafiq Phosphorus Magnesium Iron TIBC Iron Saturation Ferritin Total Bilirubin Conjugated Bilirubin Delta Bilirubin AST ALT Alkaline Phosphatase Lactate Dehydrogenase Total Creatine Kinase CK-MB (CK-2) Albumin CA 125 Antigen Vitamin B12 Ur Specific [place] Urine Protein Urine Glucose (UA) Urine Ketones Urine Blood Urine RBC Urine WBC Urine Bacteria Urine Mucus Vancomycin Trough Random Vancomycin 06/01/18 06/01/18 06/01/18 05:44 11:34 16:21 WBC RBC Hgb Hct MCHC Plt Count Neutrophils # Neutrophils # (Manual) Lymphocytes # (Manual) Monocytes # Monocytes # (Manual) Eosinophils # (Manual) Basophils # (Manual) Metamyelocytes # (Man) Myelocytes # (Manual) Nucleated RBCs Haptoglobin PT INR APTT Fibrinogen D-Dimer Sodium Potassium Chloride Carbon Dioxide BUN Creatinine Glucose POC Glucose (mg/dL) 133 H 138 H 134 H Uric Acid Calcium Ionized Calcium Rafiq Phosphorus Magnesium Iron TIBC Iron Saturation Ferritin Total Bilirubin Conjugated Bilirubin Delta Bilirubin AST ALT Alkaline Phosphatase Lactate Dehydrogenase Total Creatine Kinase CK-MB (CK-2) Albumin CA 125 Antigen Vitamin B12 Ur Specific [place] Urine Protein Urine Glucose (UA) Urine Ketones Urine Blood Urine RBC Urine WBC Urine Bacteria Urine Mucus Vancomycin Trough Random Vancomycin 06/01/18 06/02/18 06/02/18 20:55 05:30 05:30 WBC 23.7 H RBC 3.17 L Hgb 8.5 L Hct 29.8 L MCHC 28.5 L Plt Count 567 H Neutrophils # Neutrophils # (Manual) 20.30 H Lymphocytes # (Manual) Monocytes # Monocytes # (Manual) 1.90 H Eosinophils # (Manual) Basophils # (Manual) Metamyelocytes # (Man) 0.24 H Myelocytes # (Manual) Nucleated RBCs Haptoglobin PT INR APTT Fibrinogen D-Dimer Sodium 135 L Potassium 5.3 H Chloride Carbon Dioxide BUN 23 H Creatinine 1.11 H Glucose 165 H POC Glucose (mg/dL) 148 H Uric Acid Calcium 12.0 H Ionized Calcium Rafiq Phosphorus Magnesium Iron TIBC Iron Saturation Ferritin Total Bilirubin Conjugated Bilirubin Delta Bilirubin AST ALT Alkaline Phosphatase Lactate Dehydrogenase Total Creatine Kinase CK-MB (CK-2) Albumin CA 125 Antigen Vitamin B12 Ur Specific [place] Urine Protein Urine Glucose (UA) Urine Ketones Urine Blood Urine RBC Urine WBC Urine Bacteria Urine Mucus Vancomycin Trough Random Vancomycin 06/02/18 06/02/18 06/02/18 05:30 05:30 05:30 WBC RBC Hgb Hct MCHC Plt Count Neutrophils # Neutrophils # (Manual) Lymphocytes # (Manual) Monocytes # Monocytes # (Manual) Eosinophils # (Manual) Basophils # (Manual) Metamyelocytes # (Man) Myelocytes # (Manual) Nucleated RBCs Haptoglobin PT INR APTT Fibrinogen D-Dimer Sodium Potassium Chloride Carbon Dioxide BUN Creatinine Glucose POC Glucose (mg/dL) Uric Acid Calcium Ionized Calcium Rafiq Phosphorus Magnesium Iron 10 L TIBC 206 L Iron Saturation 4.85 L Ferritin 371.3 H Total Bilirubin 2.9 H Conjugated Bilirubin 0.9 H Delta Bilirubin 1.4 H AST 175 H ALT 56 H Alkaline Phosphatase 576 H Lactate Dehydrogenase Total Creatine Kinase CK-MB (CK-2) Albumin 3.1 L CA 125 Antigen 131.6 H Vitamin B12 1010.0 H Ur Specific [place] Urine Protein Urine Glucose (UA) Urine Ketones Urine Blood Urine RBC Urine WBC Urine Bacteria Urine Mucus Vancomycin Trough Random Vancomycin 06/02/18 06/02/18 06/02/18 05:36 11:13 16:20 WBC RBC Hgb Hct MCHC Plt Count Neutrophils # Neutrophils # (Manual) Lymphocytes # (Manual) Monocytes # Monocytes # (Manual) Eosinophils # (Manual) Basophils # (Manual) Metamyelocytes # (Man) Myelocytes # (Manual) Nucleated RBCs Haptoglobin PT INR APTT Fibrinogen D-Dimer Sodium Potassium Chloride Carbon Dioxide BUN Creatinine Glucose POC Glucose (mg/dL) 166 H 136 H 114 H Uric Acid Calcium Ionized Calcium Rafiq Phosphorus Magnesium Iron TIBC Iron Saturation Ferritin Total Bilirubin Conjugated Bilirubin Delta Bilirubin AST ALT Alkaline Phosphatase Lactate Dehydrogenase Total Creatine Kinase CK-MB (CK-2) Albumin CA 125 Antigen Vitamin B12 Ur Specific [place] Urine Protein Urine Glucose (UA) Urine Ketones Urine Blood Urine RBC Urine WBC Urine Bacteria Urine Mucus Vancomycin Trough Random Vancomycin 06/02/18 06/03/18 06/03/18 20:40 05:53 09:00 WBC RBC Hgb Hct MCHC Plt Count Neutrophils # Neutrophils # (Manual) Lymphocytes # (Manual) Monocytes # Monocytes # (Manual) Eosinophils # (Manual) Basophils # (Manual) Metamyelocytes # (Man) Myelocytes # (Manual) Nucleated RBCs Haptoglobin PT INR APTT Fibrinogen D-Dimer Sodium 136 L Potassium 5.2 H Chloride Carbon Dioxide 18 L BUN 35 H Creatinine 3.17 H Glucose 112 H POC Glucose (mg/dL) 139 H 113 H Uric Acid Calcium 12.1 H Ionized Calcium Rafiq Phosphorus Magnesium Iron TIBC Iron Saturation Ferritin Total Bilirubin 3.0 H Conjugated Bilirubin Delta Bilirubin AST 262 H ALT 59 H Alkaline Phosphatase 496 H Lactate Dehydrogenase Total Creatine Kinase CK-MB (CK-2) Albumin 3.1 L CA 125 Antigen Vitamin B12 Ur Specific [place] Urine Protein Urine Glucose (UA) Urine Ketones Urine Blood Urine RBC Urine WBC Urine Bacteria Urine Mucus Vancomycin Trough Random Vancomycin 06/03/18 06/03/18 06/03/18 09:00 09:00 17:06 WBC 20.8 H 20.3 H RBC 2.99 L 2.95 L Hgb 8.3 L 8.3 L Hct 28.4 L 28.6 L MCHC 29.2 L 28.9 L Plt Count 572 H 510 H Neutrophils # 16.3 H Neutrophils # (Manual) 16.60 H Lymphocytes # (Manual) Monocytes # 1.2 H Monocytes # (Manual) 1.04 H Eosinophils # (Manual) 0.83 H Basophils # (Manual) Metamyelocytes # (Man) Myelocytes # (Manual) Nucleated RBCs Haptoglobin PT INR APTT Fibrinogen D-Dimer Sodium Potassium Chloride Carbon Dioxide BUN Creatinine Glucose POC Glucose (mg/dL) Uric Acid Calcium Ionized Calcium Rafiq Phosphorus Magnesium Iron TIBC Iron Saturation Ferritin Total Bilirubin Conjugated Bilirubin Delta Bilirubin AST ALT Alkaline Phosphatase Lactate Dehydrogenase Total Creatine Kinase CK-MB (CK-2) Albumin CA 125 Antigen Vitamin B12 Ur Specific [place] Urine Protein Urine Glucose (UA) Urine Ketones Urine Blood Urine RBC Urine WBC Urine Bacteria Urine Mucus Vancomycin Trough 65.9 H* Random Vancomycin 06/03/18 06/04/18 06/04/18 17:06 05:47 05:47 WBC 22.9 H RBC 2.79 L Hgb 7.7 L Hct 27.4 L MCHC 28.1 L Plt Count 613 H Neutrophils # Neutrophils # (Manual) 20.80 H Lymphocytes # (Manual) 0.92 L Monocytes # Monocytes # (Manual) Eosinophils # (Manual) Basophils # (Manual) Metamyelocytes # (Man) 0.46 H Myelocytes # (Manual) 0.23 H Nucleated RBCs Haptoglobin PT INR APTT Fibrinogen D-Dimer Sodium 136 L 136 L Potassium 5.7 H 6.7 H* Chloride Carbon Dioxide 15 L 12 L BUN 37 H 44 H Creatinine 3.82 H 4.27 H Glucose POC Glucose (mg/dL) Uric Acid 14.2 H 9.9 H Calcium 12.5 H 11.9 H Ionized Calcium Rafiq 6.6 H* Phosphorus 5.0 H Magnesium Iron TIBC Iron Saturation Ferritin Total Bilirubin 3.0 H 2.9 H Conjugated Bilirubin Delta Bilirubin AST 281 H 386 H ALT 62 H 77 H Alkaline Phosphatase 490 H 419 H Lactate Dehydrogenase Total Creatine Kinase CK-MB (CK-2) Albumin 3.3 L 3.3 L CA 125 Antigen Vitamin B12 Ur Specific [place] Urine Protein Urine Glucose (UA) Urine Ketones Urine Blood Urine RBC Urine WBC Urine Bacteria Urine Mucus Vancomycin Trough Random Vancomycin 06/04/18 06/04/18 06/04/18 11:10 11:41 12:03 WBC RBC Hgb Hct MCHC Plt Count Neutrophils # Neutrophils # (Manual) Lymphocytes # (Manual) Monocytes # Monocytes # (Manual) Eosinophils # (Manual) Basophils # (Manual) Metamyelocytes # (Man) Myelocytes # (Manual) Nucleated RBCs Haptoglobin PT INR APTT Fibrinogen D-Dimer Sodium Potassium Chloride Carbon Dioxide BUN Creatinine Glucose POC Glucose (mg/dL) 62 L 62 L 61 L Uric Acid Calcium Ionized Calcium Rafiq Phosphorus Magnesium Iron TIBC Iron Saturation Ferritin Total Bilirubin Conjugated Bilirubin Delta Bilirubin AST ALT Alkaline Phosphatase Lactate Dehydrogenase Total Creatine Kinase CK-MB (CK-2) Albumin CA 125 Antigen Vitamin B12 Ur Specific [place] Urine Protein Urine Glucose (UA) Urine Ketones Urine Blood Urine RBC Urine WBC Urine Bacteria Urine Mucus Vancomycin Trough Random Vancomycin 06/04/18 06/04/18 06/04/18 12:30 12:46 13:14 WBC RBC Hgb Hct MCHC Plt Count Neutrophils # Neutrophils # (Manual) Lymphocytes # (Manual) Monocytes # Monocytes # (Manual) Eosinophils # (Manual) Basophils # (Manual) Metamyelocytes # (Man) Myelocytes # (Manual) Nucleated RBCs Haptoglobin PT INR APTT Fibrinogen D-Dimer Sodium Potassium Chloride Carbon Dioxide BUN Creatinine Glucose POC Glucose (mg/dL) 66 L 67 L 125 H Uric Acid Calcium Ionized Calcium Rafiq Phosphorus Magnesium Iron TIBC Iron Saturation Ferritin Total Bilirubin Conjugated Bilirubin Delta Bilirubin AST ALT Alkaline Phosphatase Lactate Dehydrogenase Total Creatine Kinase CK-MB (CK-2) Albumin CA 125 Antigen Vitamin B12 Ur Specific [place] Urine Protein Urine Glucose (UA) Urine Ketones Urine Blood Urine RBC Urine WBC Urine Bacteria Urine Mucus Vancomycin Trough Random Vancomycin 06/04/18 06/05/18 06/05/18 19:27 05:54 05:54 WBC 22.1 H RBC 2.85 L Hgb 7.8 L Hct 26.5 L MCHC 29.7 L Plt Count 607 H Neutrophils # Neutrophils # (Manual) 19.60 H Lymphocytes # (Manual) 0.66 L Monocytes # Monocytes # (Manual) 1.77 H Eosinophils # (Manual) Basophils # (Manual) 0.22 H Metamyelocytes # (Man) Myelocytes # (Manual) Nucleated RBCs 1 H Haptoglobin PT INR APTT Fibrinogen D-Dimer Sodium 134 L 133 L Potassium 5.5 H 5.3 H Chloride 95 L Carbon Dioxide 18 L 20 L BUN 38 H 42 H Creatinine 3.51 H 4.51 H Glucose POC Glucose (mg/dL) Uric Acid Calcium 10.5 H 10.5 H Ionized Calcium Rafiq Phosphorus 4.9 H Magnesium Iron TIBC Iron Saturation Ferritin Total Bilirubin Conjugated Bilirubin Delta Bilirubin AST ALT Alkaline Phosphatase Lactate Dehydrogenase Total Creatine Kinase CK-MB (CK-2) Albumin CA 125 Antigen Vitamin B12 Ur Specific [place] Urine Protein Urine Glucose (UA) Urine Ketones Urine Blood Urine RBC Urine WBC Urine Bacteria Urine Mucus Vancomycin Trough Random Vancomycin 62.5 H* 06/05/18 06/05/18 06/05/18 14:59 15:00 15:00 WBC 17.2 H RBC Hgb 10.4 L Hct MCHC 29.3 L Plt Count 466 H Neutrophils # Neutrophils # (Manual) 14.10 H Lymphocytes # (Manual) Monocytes # Monocytes # (Manual) Eosinophils # (Manual) Basophils # (Manual) 0.34 H Metamyelocytes # (Man) 0.17 H Myelocytes # (Manual) Nucleated RBCs Haptoglobin PT 18.6 H INR 1.9 H APTT 34.7 H Fibrinogen 639 H D-Dimer 17.70 H Sodium Potassium Chloride Carbon Dioxide BUN Creatinine Glucose POC Glucose (mg/dL) Uric Acid 2.1 L Calcium Ionized Calcium Rafiq Phosphorus Magnesium Iron TIBC Iron Saturation Ferritin Total Bilirubin 3.5 H Conjugated Bilirubin 1.5 H Delta Bilirubin 1.5 H AST 554 H ALT 113 H Alkaline Phosphatase 457 H Lactate Dehydrogenase Total Creatine Kinase CK-MB (CK-2) Albumin 3.1 L CA 125 Antigen Vitamin B12 Ur Specific [place] Urine Protein Urine Glucose (UA) Urine Ketones Urine Blood Urine RBC Urine WBC Urine Bacteria Urine Mucus Vancomycin Trough Random Vancomycin 06/05/18 06/05/18 06/05/18 16:42 16:42 20:57 WBC RBC Hgb Hct MCHC Plt Count Neutrophils # Neutrophils # (Manual) Lymphocytes # (Manual) Monocytes # Monocytes # (Manual) Eosinophils # (Manual) Basophils # (Manual) Metamyelocytes # (Man) Myelocytes # (Manual) Nucleated RBCs Haptoglobin 376.0 H PT INR APTT Fibrinogen D-Dimer Sodium Potassium Chloride Carbon Dioxide BUN Creatinine Glucose POC Glucose (mg/dL) 105 H Uric Acid Calcium Ionized Calcium Rafiq Phosphorus Magnesium Iron TIBC Iron Saturation Ferritin Total Bilirubin Conjugated Bilirubin Delta Bilirubin AST ALT Alkaline Phosphatase Lactate Dehydrogenase 7353 H Total Creatine Kinase CK-MB (CK-2) Albumin CA 125 Antigen Vitamin B12 Ur Specific [place] Urine Protein Urine Glucose (UA) Urine Ketones Urine Blood Urine RBC Urine WBC Urine Bacteria Urine Mucus Vancomycin Trough Random Vancomycin 06/06/18 06/06/18 05:06 05:06 WBC 20.8 H RBC 2.74 L Hgb 7.6 L D Hct 25.2 L MCHC 30.3 L Plt Count 507 H Neutrophils # Neutrophils # (Manual) 16.20 H Lymphocytes # (Manual) Monocytes # Monocytes # (Manual) 2.29 H Eosinophils # (Manual) Basophils # (Manual) Metamyelocytes # (Man) Myelocytes # (Manual) 0.62 H Nucleated RBCs 1 H Haptoglobin PT INR APTT Fibrinogen D-Dimer Sodium 131 L Potassium Chloride 96 L Carbon Dioxide 20 L BUN 34 H Creatinine 3.89 H Glucose POC Glucose (mg/dL) Uric Acid Calcium Ionized Calcium Rafiq Phosphorus Magnesium Iron TIBC Iron Saturation Ferritin Total Bilirubin 4.2 H Conjugated Bilirubin Delta Bilirubin AST 520 H ALT 108 H Alkaline Phosphatase 412 H Lactate Dehydrogenase Total Creatine Kinase CK-MB (CK-2) Albumin 3.0 L CA 125 Antigen Vitamin B12 Ur Specific [place] Urine Protein Urine Glucose (UA) Urine Ketones Urine Blood Urine RBC Urine WBC Urine Bacteria Urine Mucus Vancomycin Trough Random Vancomycin - Diagnostic Findings Chest x-ray: image reviewed (Chest x-ray is showing diffuse interstitial infiltrates, and bilateral pleural effusions, this is consistent with pulmonary edema.) Assessment and Plan Assessment: Impression: 1 metastatic ovarian cancer 2 acute kidney injury, could be secondary to vancomycin or contrast media or possibly both. Patient is presently on hemodialysis. 3 acute pulmonary edema secondary to acute renal failure, requiring hemodialysis /ultrafiltration. 4 multiple pulmonary nodules related to metastatic ovarian cancer unless proven otherwise. 5 acute epistaxis, no evidence of DIC, resolved. 6 hypercalcemia secondary to malignancy status post pamidronate treatment. 7 hyperuricemia and hyperphosphatemia addressed accordingly. 8 hyperkalemia secondary to acute kidney injury, resolved postdialysis. 9 abnormal liver enzymes, possible metastatic disease to the liver. Suspected based on the ultrasound of the liver. 10 leg swelling noted with right lower extremity a bit more swollen than the left lower extremity, venous Doppler was ordered and it was negative for deep vein thrombosis. Recommendation: I fully agree with the present treatment plan, reviewed and discussed with the patient and her all of the above, and suggested to the patient to discuss with her oncologist whether it would be worthwhile that she follows up with her oncologic team at [facility]. Apparently the patient has been receiving all her medical care and treatment regarding her ovarian cancer at [facility]. At this point patient could be transferred out of the ICU and possibly managed on oncologic floor. Overall prognosis of course extremely poor. We will continue to follow. Time with Patient: Greater than 30
--- NOTE | 2018-06-06 12:44 | P.PN ---
Progress Note - Text We had a 30 min discussion with Kwabena Rashidte, father and best friend The patient has advanced, rapidly growing metastatic Grade III Adenocarcinoma, has multi-organ failure He prognosis is very poor and there is virtually no chance of meaningful recovery She has slight coagulopathy, but there is NO DIC or TTP We discussed potential referral to a tertiary care facility, though this will NOT give patient any better chances nor other available options of care Chemotherapy is only option, but due to liver/Renal failure, chemotherapy will likely hastens her demise A low dose single agent Carboplatinum Chemotherapy could be given (after dialysis) if she should so desire > I doubt any clinical benefit. The patient will "think about it" and let us know I answered all questions/concerns
[2018-06-06] MEDS: HYDROcodone/APAP 5-325MG 1 EACH TAB PO PRN ×2 (13:17→22:08)
--- NOTE | 2018-06-06 13:46 | P.PN ---
Subjective Patient is seen in follow-up for acute kidney injury. Patient remains oliguric. She was started on hemodialysis on June 04. Etiology is vancomycin toxicity. Currently seen while undergoing hemodialysis. Oral intake is poor. Denies chest pain or shortness of breath. Feels tired. Vital signs are stable. General: The patient appeared well nourished and normally developed. HEENT: Head exam is unremarkable. Neck is without jugular venous distension. LUNGS: Lungs are clear to auscultation and percussion. Breath sounds decreased. HEART: Rate and Rhythm are regular. First and second heart sounds normal. No murmurs, rubs or gallops. ABDOMEN: Abdominal exam reveals normal bowel sounds. Non-tender and non- distended. No evidence of peritonitis. EXTREMITITES: Trace edema. Objective - Vital Signs Vital signs: Vital Signs Temp 97.5 F L 06/06/18 12:00 Pulse 105 H 06/06/18 13:00 Resp 22 06/06/18 13:00 BP 131/66 06/06/18 13:00 Pulse Ox 98 06/06/18 13:00 Intake & Output 06/05/18 06/06/18 06/06/18 18:59 06:59 18:59 Intake Total 200 625 450 Output Total 0 Balance 200 625 450 Weight 97.7 kg 97.7 kg Intake: IV 275 450 Dextrose 5% in Water 1, 200 350 000 ml @ 50 mls/hr IV . Q23H DIANE with Sodium Bicarb (1 Meq/ml) 150 ml Rx#:[id number] Piperacillin-Tazobactam 3 75 100 .375 gm In Sodium Chloride 0.9% 100 ml @ 25 mls/hr IVPB Q12HR DIANE Rx #:[id number] Intake, IV Titration 160 350 Amount Dextrose 5% in Water 1, 60 200 000 ml @ 50 mls/hr IV . Q23H DIANE with Sodium Bicarb (1 Meq/ml) 150 ml Rx#:[id number] Phytonadione 5 mg In 50 Sodium Chloride 0.9% 50 ml @ 100 mls/hr IVPB ONCE STA Rx#:[id number] Piperacillin-Tazobactam 3 100 100 .375 gm In Sodium Chloride 0.9% 100 ml @ 25 mls/hr IVPB Q12HR DIANE Rx #:[id number] Oral 40 Output: Urine 0 Other: Voiding Method Indwelling Catheter Toilet Toilet # Voids 1 - Labs CBC & Chem 7: 06/06/18 05:06 06/06/18 05:06 Labs: Abnormal Lab Results - Last 24 Hours (Table) 06/05/18 06/05/18 06/05/18 Range/Units 14:59 15:00 15:00 WBC 17.2 H (3.8-10.6) k/uL RBC (3.80-5.40) m/uL Hgb 10.4 L (11.4-16.0) gm/dL Hct (34.0-46.0) % MCHC 29.3 L (31.0-37.0) g/dL Plt Count 466 H (150-450) k/uL Neutrophils # (Manual) 14.10 H (1.3-7.7) k/uL Monocytes # (Manual) (0-1.0) k/uL Basophils # (Manual) 0.34 H (0-0.2) k/uL Metamyelocytes # (Man) 0.17 H (0) k/uL Myelocytes # (Manual) (0) k/uL Nucleated RBCs (0-0) /100 WBC Haptoglobin (31.2-198.0) mg/dL PT 18.6 H (9.0-12.0) sec INR 1.9 H (<1.2) APTT 34.7 H (22.0-30.0) sec Fibrinogen 639 H (200-500) mg/dL D-Dimer 17.70 H (<0.60) mg/L FEU Sodium (137-145) mmol/L Chloride (98-107) mmol/L Carbon Dioxide (22-30) mmol/L BUN (7-17) mg/dL Creatinine (0.52-1.04) mg/dL POC Glucose (mg/dL) (75-99) mg/dL Uric Acid 2.1 L (3.7-7.4) mg/dL Total Bilirubin 3.5 H (0.2-1.3) mg/dL Conjugated Bilirubin 1.5 H (0.0-0.3) mg/dL Delta Bilirubin 1.5 H (0.0-0.2) mg/dL AST 554 H (14-36) U/L ALT 113 H (9-52) U/L Alkaline Phosphatase 457 H (38-126) U/L Lactate Dehydrogenase (313-618) U/L Albumin 3.1 L (3.5-5.0) g/dL 06/05/18 06/05/18 06/05/18 Range/Units 16:42 16:42 20:57 WBC (3.8-10.6) k/uL RBC (3.80-5.40) m/uL Hgb (11.4-16.0) gm/dL Hct (34.0-46.0) % MCHC (31.0-37.0) g/dL Plt Count (150-450) k/uL Neutrophils # (Manual) (1.3-7.7) k/uL Monocytes # (Manual) (0-1.0) k/uL Basophils # (Manual) (0-0.2) k/uL Metamyelocytes # (Man) (0) k/uL Myelocytes # (Manual) (0) k/uL Nucleated RBCs (0-0) /100 WBC Haptoglobin 376.0 H (31.2-198.0) mg/dL PT (9.0-12.0) sec INR (<1.2) APTT (22.0-30.0) sec Fibrinogen (200-500) mg/dL D-Dimer (<0.60) mg/L FEU Sodium (137-145) mmol/L Chloride (98-107) mmol/L Carbon Dioxide (22-30) mmol/L BUN (7-17) mg/dL Creatinine (0.52-1.04) mg/dL POC Glucose (mg/dL) 105 H (75-99) mg/dL Uric Acid (3.7-7.4) mg/dL Total Bilirubin (0.2-1.3) mg/dL Conjugated Bilirubin (0.0-0.3) mg/dL Delta Bilirubin (0.0-0.2) mg/dL AST (14-36) U/L ALT (9-52) U/L Alkaline Phosphatase (38-126) U/L Lactate Dehydrogenase 7353 H (313-618) U/L Albumin (3.5-5.0) g/dL 06/06/18 06/06/18 Range/Units 05:06 05:06 WBC 20.8 H (3.8-10.6) k/uL RBC 2.74 L (3.80-5.40) m/uL Hgb 7.6 L D (11.4-16.0) gm/dL Hct 25.2 L (34.0-46.0) % MCHC 30.3 L (31.0-37.0) g/dL Plt Count 507 H (150-450) k/uL Neutrophils # (Manual) 16.20 H (1.3-7.7) k/uL Monocytes # (Manual) 2.29 H (0-1.0) k/uL Basophils # (Manual) (0-0.2) k/uL Metamyelocytes # (Man) (0) k/uL Myelocytes # (Manual) 0.62 H (0) k/uL Nucleated RBCs 1 H (0-0) /100 WBC Haptoglobin (31.2-198.0) mg/dL PT (9.0-12.0) sec INR (<1.2) APTT (22.0-30.0) sec Fibrinogen (200-500) mg/dL D-Dimer (<0.60) mg/L FEU Sodium 131 L (137-145) mmol/L Chloride 96 L (98-107) mmol/L Carbon Dioxide 20 L (22-30) mmol/L BUN 34 H (7-17) mg/dL Creatinine 3.89 H (0.52-1.04) mg/dL POC Glucose (mg/dL) (75-99) mg/dL Uric Acid (3.7-7.4) mg/dL Total Bilirubin 4.2 H (0.2-1.3) mg/dL Conjugated Bilirubin (0.0-0.3) mg/dL Delta Bilirubin (0.0-0.2) mg/dL AST 520 H (14-36) U/L ALT 108 H (9-52) U/L Alkaline Phosphatase 412 H (38-126) U/L Lactate Dehydrogenase (313-618) U/L Albumin 3.0 L (3.5-5.0) g/dL Microbiology - Last 24 Hours (Table) 06/02/18 12:24 Blood Culture - Preliminary Blood No Growth after 72 hours 06/02/18 12:29 Blood Culture - Preliminary Blood No Growth after 72 hours Assessment and Plan Plan: Assessment: 1. Oliguric acute kidney injury secondary to ATN secondary to vancomycin toxicity. Additionally the patient received IV contrast dye on May 31 for CTA. Baseline creatinine is near 1. No evidence of hydronephrosis noted on imaging. Started on hemodialysis 06/04/2018. 2. Hyperkalemia secondary to acute kidney injury and metabolic acidosis. Better postdialysis. 3. Metabolic acidosis secondary to acute kidney injury. Stable. 4. Recently diagnosed ovarian cancer. Patient not on chemotherapy yet. 5. Hypercalcemia secondary to malignancy. Status post pamidronate on June 04. Better. 6. Hyperuricemia status post rasburicase on June 03. Resolved. 7. Mild hyperphosphatemia secondary to acute kidney injury. Phosphorus level 4.9 today. Repeat 3.9. 8. Hyponatremia secondary to acute kidney injury. Plan: Currently seen while undergoing hemodialysis. Will hold off tomorrow. Hep-Lock IV fluids. Continue to monitor renal function and urine output closely. Discontinue calcitonin.
--- NOTE | 2018-06-06 17:10 | P.PN ---
Subjective Progress Note Date: 06/06/18 Principal diagnosis: high grade metastatic ovarian malignancy Pt seen today with family and friends at bedside for meeting with Dr. Aparicio. Pt abd is bloated and sensitive, she is trying to tolerate some oral intake, no vomiting, fever, VLADIMIR, she had a BM yesterday. Objective - Vital Signs Vital signs: Vital Signs Temp 97.8 F 06/06/18 16:00 Pulse 112 H 06/06/18 16:00 Resp 21 06/06/18 16:00 BP 124/72 06/06/18 16:00 Pulse Ox 95 06/06/18 16:00 Intake & Output 06/05/18 06/06/18 06/06/18 18:59 06:59 18:59 Intake Total 200 625 480 Output Total 0 Balance 200 625 480 Weight 97.7 kg 97.7 kg Intake: IV 275 480 Dextrose 5% in Water 1, 200 350 000 ml @ 50 mls/hr IV . Q23H DIANE with Sodium Bicarb (1 Meq/ml) 150 ml Rx#:[id number] Piperacillin-Tazobactam 3 75 100 .375 gm In Sodium Chloride 0.9% 100 ml @ 25 mls/hr IVPB Q12HR DIANE Rx #:[id number] Sodium Chloride 0.9% 10 30 mls/hr KVO Intake, IV Titration 160 350 Amount Dextrose 5% in Water 1, 60 200 000 ml @ 50 mls/hr IV . Q23H DIANE with Sodium Bicarb (1 Meq/ml) 150 ml Rx#:[id number] Phytonadione 5 mg In 50 Sodium Chloride 0.9% 50 ml @ 100 mls/hr IVPB ONCE STA Rx#:[id number] Piperacillin-Tazobactam 3 100 100 .375 gm In Sodium Chloride 0.9% 100 ml @ 25 mls/hr IVPB Q12HR DIANE Rx #:[id number] Oral 40 Output: Urine 0 Other: Voiding Method Indwelling Catheter Toilet Toilet # Voids 1 - Constitutional General appearance: Present: cooperative, mild distress - EENT Eyes: Present: anicteric sclerae, EOMI ENT: Present: hearing grossly normal - Respiratory Respiratory: bilateral: CTA, diminished (bases) - Cardiovascular Heart sounds: normal: S1, S2 - Peripheral edema leg Peripheral Edema: bilateral: 1+ - Gastrointestinal Gastrointestinal Comment(s): midline incision General gastrointestinal: Present: distended, tenderness - Integumentary Integumentary: Present: pale - Neurologic Neurologic: Present: CNII-XII intact - Musculoskeletal Musculoskeletal: Present: generalized weakness - Psychiatric Psychiatric: Present: A&O x's 3, appropriate affect, intact judgment & insight - Labs CBC & Chem 7: 06/06/18 05:06 06/06/18 05:06 Labs: Abnormal Lab Results - Last 24 Hours (Table) 06/05/18 06/05/18 06/05/18 Range/Units 14:59 15:00 15:00 WBC (3.8-10.6) k/uL RBC (3.80-5.40) m/uL Hgb (11.4-16.0) gm/dL Hct (34.0-46.0) % MCHC (31.0-37.0) g/dL Plt Count 466 H (150-450) k/uL Neutrophils # (Manual) 14.10 H (1.3-7.7) k/uL Monocytes # (Manual) (0-1.0) k/uL Basophils # (Manual) 0.34 H (0-0.2) k/uL Metamyelocytes # (Man) 0.17 H (0) k/uL Myelocytes # (Manual) (0) k/uL Nucleated RBCs (0-0) /100 WBC Haptoglobin (31.2-198.0) mg/dL PT 18.6 H (9.0-12.0) sec INR 1.9 H (<1.2) APTT 34.7 H (22.0-30.0) sec Fibrinogen 639 H (200-500) mg/dL D-Dimer 17.70 H (<0.60) mg/L FEU Sodium (137-145) mmol/L Chloride (98-107) mmol/L Carbon Dioxide (22-30) mmol/L BUN (7-17) mg/dL Creatinine (0.52-1.04) mg/dL POC Glucose (mg/dL) (75-99) mg/dL Uric Acid 2.1 L (3.7-7.4) mg/dL Total Bilirubin 3.5 H (0.2-1.3) mg/dL Conjugated Bilirubin 1.5 H (0.0-0.3) mg/dL Delta Bilirubin 1.5 H (0.0-0.2) mg/dL AST 554 H (14-36) U/L ALT 113 H (9-52) U/L Alkaline Phosphatase 457 H (38-126) U/L Lactate Dehydrogenase (313-618) U/L Albumin 3.1 L (3.5-5.0) g/dL 06/05/18 06/05/18 06/05/18 Range/Units 16:42 16:42 20:57 WBC (3.8-10.6) k/uL RBC (3.80-5.40) m/uL Hgb (11.4-16.0) gm/dL Hct (34.0-46.0) % MCHC (31.0-37.0) g/dL Plt Count (150-450) k/uL Neutrophils # (Manual) (1.3-7.7) k/uL Monocytes # (Manual) (0-1.0) k/uL Basophils # (Manual) (0-0.2) k/uL Metamyelocytes # (Man) (0) k/uL Myelocytes # (Manual) (0) k/uL Nucleated RBCs (0-0) /100 WBC Haptoglobin 376.0 H (31.2-198.0) mg/dL PT (9.0-12.0) sec INR (<1.2) APTT (22.0-30.0) sec Fibrinogen (200-500) mg/dL D-Dimer (<0.60) mg/L FEU Sodium (137-145) mmol/L Chloride (98-107) mmol/L Carbon Dioxide (22-30) mmol/L BUN (7-17) mg/dL Creatinine (0.52-1.04) mg/dL POC Glucose (mg/dL) 105 H (75-99) mg/dL Uric Acid (3.7-7.4) mg/dL Total Bilirubin (0.2-1.3) mg/dL Conjugated Bilirubin (0.0-0.3) mg/dL Delta Bilirubin (0.0-0.2) mg/dL AST (14-36) U/L ALT (9-52) U/L Alkaline Phosphatase (38-126) U/L Lactate Dehydrogenase 7353 H (313-618) U/L Albumin (3.5-5.0) g/dL 06/06/18 06/06/18 Range/Units 05:06 05:06 WBC 20.8 H (3.8-10.6) k/uL RBC 2.74 L (3.80-5.40) m/uL Hgb 7.6 L D (11.4-16.0) gm/dL Hct 25.2 L (34.0-46.0) % MCHC 30.3 L (31.0-37.0) g/dL Plt Count 507 H (150-450) k/uL Neutrophils # (Manual) 16.20 H (1.3-7.7) k/uL Monocytes # (Manual) 2.29 H (0-1.0) k/uL Basophils # (Manual) (0-0.2) k/uL Metamyelocytes # (Man) (0) k/uL Myelocytes # (Manual) 0.62 H (0) k/uL Nucleated RBCs 1 H (0-0) /100 WBC Haptoglobin (31.2-198.0) mg/dL PT (9.0-12.0) sec INR (<1.2) APTT (22.0-30.0) sec Fibrinogen (200-500) mg/dL D-Dimer (<0.60) mg/L FEU Sodium 131 L (137-145) mmol/L Chloride 96 L (98-107) mmol/L Carbon Dioxide 20 L (22-30) mmol/L BUN 34 H (7-17) mg/dL Creatinine 3.89 H (0.52-1.04) mg/dL POC Glucose (mg/dL) (75-99) mg/dL Uric Acid (3.7-7.4) mg/dL Total Bilirubin 4.2 H (0.2-1.3) mg/dL Conjugated Bilirubin (0.0-0.3) mg/dL Delta Bilirubin (0.0-0.2) mg/dL AST 520 H (14-36) U/L ALT 108 H (9-52) U/L Alkaline Phosphatase 412 H (38-126) U/L Lactate Dehydrogenase (313-618) U/L Albumin 3.0 L (3.5-5.0) g/dL Microbiology - Last 24 Hours (Table) 06/02/18 12:24 Blood Culture - Preliminary Blood No Growth after 96 hours 06/02/18 12:29 Blood Culture - Preliminary Blood No Growth after 96 hours - Imaging and Cardiology Venous US: report reviewed Assessment and Plan (1) Acute renal failure Narrative/Plan: Case discussed briefly with Nephrology, who is following and treating, pt is getting dialysis today Current Visit: Yes Status: Acute Priority: High Code(s): N17.9 - ACUTE KIDNEY FAILURE, UNSPECIFIED SNOMED Code(s): 57813911 (2) Ovarian cancer Narrative/Plan: Please defer to Dr. Aparicio's text note dated today for the discussion. Will f/ u with pt and family in AM Current Visit: Yes Status: Chronic Priority: High Code(s): C56.9 - MALIGNANT NEOPLASM OF UNSPECIFIED OVARY SNOMED Code(s): 584190570 (3) Iron deficiency Narrative/Plan: No acute intervention at this time due to acute illness. Pt is not needing transfusion as of yet. Hgb of 10.4 yesterday felt to be lab anomaly, 7.6 is more consistent with the previous 3 days of labs. CBC is ordered daily. Current Visit: Yes Status: Acute Priority: Medium Code(s): E61.1 - IRON DEFICIENCY SNOMED Code(s): 22428699 Plan: Attests: I have performed H&P and developed impression and plan of patient care, discussed with dictator. I agree with dictated note, documetned as a scribe.
--- NOTE | 2018-06-06 23:24 | P.PN ---
Subjective Progress Note Date: 06/06/18 Pleasant 28-year-old female who has a history of ovarian cancer first diagnosed at the age of 22 was cared for in the [facility] where she underwent her original surgery and chemotherapy. She relates that she was doing well at the 5 year checkup however she then developed significant ongoing symptoms with abdominal pain. Workup has been done and there is evidence of recurrence of her ovarian cancer. She was having increasing amounts of discomfort abdominally as well as into the bilateral rib cage area for which she sought care. She's had CAT scans performed showing evidence of rapidly increasing tumor metastasis intra-abdominally, liver as well as lung. She was cared for surgically on 05/21/2018 where tumor resection was attempted but apparently due to adhesions incomplete resection occurred. Since then she's had increasing amounts of abdominal pain and noted increasing pleural pain which is why she sought care in hospital. She's been seen by oncology to consult is awaited. The patient relates that she was to start chemotherapy on 06/18/2018. She is denying severe amounts of fever or chills but does have increasing abdominal pain. She has early satiety with any attempts of eating but is not having active nausea or emesis. She's had some constipation that she relieves with suppositories and an ongoing basis. She denies hematemesis, melena or hematochezia at this time. Her pain is still only modestly controlled currently between a 4 and a 6 most of the time. She does seem aware of the progressive nature of her disease, and the fact that she recurred late. 06/04/2018 patient feeling very poorly over the last day. This developed rapid renal failure, acute in nature. She's now been seen by nephrology and dialysis catheter has been placed and she has been initiated to renal replacement therapy. Plans for the treatment for the next 3 days as per the dialysis nurse. Patient feels poorly 06/06/2018 patient is now had 3 dialysis cycles and other than feeling very poorly overall she seems to be without acute shortness of breath pain level is about a 6 and modestly well controlled. Objective - Vital Signs Vital signs: Vital Signs Temp 97.8 F 06/06/18 16:00 Pulse 107 H 06/06/18 19:00 Resp 13 06/06/18 19:00 BP 139/64 06/06/18 19:00 Pulse Ox 94 L 06/06/18 19:00 Intake & Output 06/06/18 06/06/18 06/07/18 06:59 18:59 06:59 Intake Total 625 500 10 Output Total 0 0 Balance 625 500 10 Weight 97.7 kg 97.7 kg Intake: IV 275 500 10 Dextrose 5% in Water 1, 200 350 000 ml @ 50 mls/hr IV . Q23H DIANE with Sodium Bicarb (1 Meq/ml) 150 ml Rx#:[id number] Piperacillin-Tazobactam 3 75 100 .375 gm In Sodium Chloride 0.9% 100 ml @ 25 mls/hr IVPB Q12HR DIANE Rx #:[id number] Sodium Chloride 0.9% 10 50 10 mls/hr KVO Intake, IV Titration 350 Amount Dextrose 5% in Water 1, 200 000 ml @ 50 mls/hr IV . Q23H DIANE with Sodium Bicarb (1 Meq/ml) 150 ml Rx#:[id number] Phytonadione 5 mg In 50 Sodium Chloride 0.9% 50 ml @ 100 mls/hr IVPB ONCE STA Rx#:[id number] Piperacillin-Tazobactam 3 100 .375 gm In Sodium Chloride 0.9% 100 ml @ 25 mls/hr IVPB Q12HR DIANE Rx #:[id number] Output: Urine 0 0 Other: Voiding Method Toilet Toilet # Voids 1 - Exam 28-year-old female looks older than her stated age has pallorand feels poorly HEENT: Anicteric conjunctiva are pink and moist nasal mucosa grossly intact without significant lesions, there is no thrush. Poor dentition Neck: The neck is supple without significant lymphadenopathy or thyromegaly. Lungs: Good bilateral air entry without significant crackles or wheezing. She does have ability to have diminished deep inspiration with some few crackles at the bilateral bases Heart: Regular rate and rhythm with an audible S1-S2, no S3 no S4. There is no significant murmur click or rub, PMI was nondisplaced. Abdomen: Mildly distended, is not distinctly painful on exam Extremities: The upper extremities have excellent pulses they are symmetric, no significant petechiae or telangiectasia. No splinter hemorrhages were noted. The lower extremities are free from significant edema. The peripheral pulses were 2+ and symmetric. femoral dialysis catheter in place Neuro: Awake alert oriented to person place and time. There are no acute new gross focal sensory motor deficits. - Labs CBC & Chem 7: 06/06/18 05:06 06/06/18 05:06 Labs: Abnormal Lab Results - Last 24 Hours (Table) 06/05/18 06/06/18 06/06/18 Range/Units 16:42 05:06 05:06 WBC 20.8 H (3.8-10.6) k/uL RBC 2.74 L (3.80-5.40) m/uL Hgb 7.6 L D (11.4-16.0) gm/dL Hct 25.2 L (34.0-46.0) % MCHC 30.3 L (31.0-37.0) g/dL Plt Count 507 H (150-450) k/uL Neutrophils # (Manual) 16.20 H (1.3-7.7) k/uL Monocytes # (Manual) 2.29 H (0-1.0) k/uL Myelocytes # (Manual) 0.62 H (0) k/uL Nucleated RBCs 1 H (0-0) /100 WBC Haptoglobin 376.0 H (31.2-198.0) mg/dL Sodium 131 L (137-145) mmol/L Chloride 96 L (98-107) mmol/L Carbon Dioxide 20 L (22-30) mmol/L BUN 34 H (7-17) mg/dL Creatinine 3.89 H (0.52-1.04) mg/dL Total Bilirubin 4.2 H (0.2-1.3) mg/dL AST 520 H (14-36) U/L ALT 108 H (9-52) U/L Alkaline Phosphatase 412 H (38-126) U/L Albumin 3.0 L (3.5-5.0) g/dL Microbiology - Last 24 Hours (Table) 06/02/18 12:24 Blood Culture - Preliminary Blood No Growth after 96 hours 06/02/18 12:29 Blood Culture - Preliminary Blood No Growth after 96 hours Laboratory Results WBC 20.8 k/uL (3.8-10.6) H 06/06/18 05:06 RBC 2.74 m/uL (3.80-5.40) L 06/06/18 05:06 Hgb 7.6 gm/dL (11.4-16.0) L D 06/06/18 05:06 Hct 25.2 % (34.0-46.0) L 06/06/18 05:06 MCV 91.9 fL (80.0-100.0) 06/06/18 05:06 MCH 27.8 pg (25.0-35.0) 06/06/18 05:06 MCHC 30.3 g/dL (31.0-37.0) L 06/06/18 05:06 RDW 13.8 % (11.5-15.5) 06/06/18 05:06 Plt Count 507 k/uL (150-450) H 06/06/18 05:06 Neutrophils % 80 % 06/03/18 17:06 Neutrophils % (Manual) 77 % 06/06/18 05:06 Band Neutrophils % 1 % 06/06/18 05:06 Lymphocytes % 10 % 06/03/18 17:06 Lymphocytes % (Manual) 7 % 06/06/18 05:06 Monocytes % 6 % 06/03/18 17:06 Monocytes % (Manual) 11 % 06/06/18 05:06 Eosinophils % 1 % 06/03/18 17:06 Eosinophils % (Manual) 2 % 06/06/18 05:06 Basophils % 0 % 06/03/18 17:06 Basophils % (Manual) 2 % 06/05/18 15:00 Metamyelocytes % 1 % 06/05/18 15:00 Myelocytes % 3 % 06/06/18 05:06 Neutrophils # 16.3 k/uL (1.3-7.7) H 06/03/18 17:06 Neutrophils # (Manual) 16.20 k/uL (1.3-7.7) H 06/06/18 05:06 Lymphocytes # 2.0 k/uL (1.0-4.8) 06/03/18 17:06 Lymphocytes # (Manual) 1.46 k/uL (1.0-4.8) 06/06/18 05:06 Monocytes # 1.2 k/uL (0-1.0) H 06/03/18 17:06 Monocytes # (Manual) 2.29 k/uL (0-1.0) H 06/06/18 05:06 Eosinophils # 0.3 k/uL (0-0.7) 06/03/18 17:06 Eosinophils # (Manual) 0.42 k/uL (0-0.7) 06/06/18 05:06 Basophils # 0.1 k/uL (0-0.2) 06/03/18 17:06 Basophils # (Manual) 0.34 k/uL (0-0.2) H 06/05/18 15:00 Metamyelocytes # (Man) 0.17 k/uL (0) H 06/05/18 15:00 Myelocytes # (Manual) 0.62 k/uL (0) H 06/06/18 05:06 Nucleated RBCs 1 /100 WBC (0-0) H 06/06/18 05:06 Manual Slide Review Performed 06/06/18 05:06 Toxic Granulation Present 06/03/18 09:00 Large Platelets Present 06/05/18 05:54 Polychromasia Present 06/06/18 05:06 Hypochromasia Marked 06/06/18 05:06 Target Cells Present 06/05/18 05:54 Haptoglobin 376.0 mg/dL (31.2-198.0) H 06/05/18 16:42 PT 11.6 sec (9.0-12.0) 06/06/18 05:06 INR 1.1 (<1.2) 06/06/18 05:06 APTT 29.6 sec (22.0-30.0) 06/06/18 05:06 Fibrinogen 639 mg/dL (200-500) H 06/05/18 14:59 D-Dimer 17.70 mg/L FEU (<0.60) H 06/05/18 14:59 Sodium 131 mmol/L (137-145) L 06/06/18 05:06 Potassium 4.9 mmol/L (3.5-5.1) 06/06/18 05:06 Chloride 96 mmol/L (98-107) L 06/06/18 05:06 Carbon Dioxide 20 mmol/L (22-30) L 06/06/18 05:06 Anion Gap 15 mmol/L 06/06/18 05:06 BUN 34 mg/dL (7-17) H 06/06/18 05:06 Creatinine 3.89 mg/dL (0.52-1.04) H 06/06/18 05:06 Est GFR (CKD-EPI)AfAm 17 (>60 ml/min/1.73 sqM) 06/06/18 05:06 Est GFR (CKD-EPI)NonAf 15 (>60 ml/min/1.73 sqM) 06/06/18 05:06 Glucose 79 mg/dL (74-99) 06/06/18 05:06 POC Glucose (mg/dL) 78 mg/dL (75-99) 06/06/18 11:47 POC Glu Yarn Rewinder Catalina Tinajero 06/06/18 11:47 Uric Acid 2.1 mg/dL (3.7-7.4) L 06/05/18 15:00 Calcium 9.2 mg/dL (8.4-10.2) 06/06/18 05:06 Ionized Calcium Rafiq 6.6 mg/dL (4.5-5.3) H* 06/03/18 17:06 Phosphorus 3.9 mg/dL (2.5-4.5) 06/06/18 05:06 Magnesium 2.1 mg/dL (1.6-2.3) 06/06/18 05:06 Iron 10 ug/dL (50-170) L 06/02/18 05:30 TIBC 206 ug/dL (228-460) L 06/02/18 05:30 Iron Saturation 4.85 (12.00-45.00) L 06/02/18 05:30 Ferritin 371.3 ng/mL (10.0-291.0) H 06/02/18 05:30 Total Bilirubin 4.2 mg/dL (0.2-1.3) H 06/06/18 05:06 Conjugated Bilirubin 1.5 mg/dL (0.0-0.3) H 06/05/18 15:00 Unconjugated Bilirubin 0.5 mg/dL (0.0-1.1) 06/05/18 15:00 Delta Bilirubin 1.5 mg/dL (0.0-0.2) H 06/05/18 15:00 AST 520 U/L (14-36) H 06/06/18 05:06 ALT 108 U/L (9-52) H 06/06/18 05:06 Alkaline Phosphatase 412 U/L (38-126) H 06/06/18 05:06 Lactate Dehydrogenase 7353 U/L (313-618) H 06/05/18 16:42 Total Creatine Kinase 280 U/L (30-135) H 05/31/18 06:59 CK-MB (CK-2) 17.5 ng/mL (0.0-2.4) H 05/31/18 06:59 CK-MB (CK-2) Rel Index 6.3 05/31/18 06:59 Troponin I <0.012 ng/mL (0.000-0.034) 05/31/18 06:59 Total Protein 6.3 g/dL (6.3-8.2) 06/06/18 05:06 Albumin 3.0 g/dL (3.5-5.0) L 06/06/18 05:06 CA 125 Antigen 131.6 U/mL (0.0-30.1) H 06/02/18 05:30 Vitamin B12 1010.0 pg/mL (200.0-944.0) H 06/02/18 05:30 Folate 4.5 ng/mL 06/02/18 05:30 Urine Color Yellow 05/31/18 15:00 Urine Appearance Clear (Clear) 05/31/18 15:00 Urine pH 5.0 (5.0-8.0) 05/31/18 15:00 Ur Specific [place] 1.045 (1.001-1.035) H 05/31/18 15:00 Urine Protein Trace (Negative) H 05/31/18 15:00 Urine Glucose (UA) 4+ (Negative) H 05/31/18 15:00 Urine Ketones 1+ (Negative) H 05/31/18 15:00 Urine Blood Trace (Negative) H 05/31/18 15:00 Urine Nitrite Negative (Negative) 05/31/18 15:00 Urine Bilirubin Negative (Negative) 05/31/18 15:00 Urine Urobilinogen <2.0 mg/dL (<2.0) 05/31/18 15:00 Ur Leukocyte Esterase Negative (Negative) 05/31/18 15:00 Urine RBC 7 /hpf (0-5) H 05/31/18 15:00 Urine WBC 9 /hpf (0-5) H 05/31/18 15:00 Ur Squamous Epith Cells 2 /hpf (0-4) 05/31/18 15:00 Urine Bacteria Occasional /hpf (None) H 05/31/18 15:00 Granular Casts 1 /lpf (0) 05/31/18 15:00 Urine Mucus Rare /hpf (None) H 05/31/18 15:00 Urine HCG, Qual Not Detected (Not Detectd) 05/31/18 15:00 Vancomycin Trough 65.9 ug/mL H* 06/03/18 09:00 Random Vancomycin 62.5 ug/mL H* 06/05/18 05:54 Heparin-Ind Plt Ab Scrn 0.233 OD (<0.4) 06/05/18 15:42 Hepatitis A IgM Ab Non-Reactive (Non-Reactive) 06/04/18 05:47 Hep Bs Antigen Non-Reactive (Non-Reactive) 06/04/18 05:47 Hep B Core IgM Ab Non-Reactive (Non-Reactive) 06/04/18 05:47 Hep C IgG Ab Non-Reactive (Non-Reactive) 06/04/18 05:47 GER, IgG Interpret Negative 06/05/18 17:26 GER, Poly Interpret Negative 06/05/18 17:26 Microbiology 06/02/18 12:24 Blood Blood Culture - Preliminary No Growth after 96 hours 06/02/18 12:29 Blood Blood Culture - Preliminary No Growth after 96 hours Assessment and Plan (1) Abdominal pain Current Visit: Yes Status: Acute Code(s): R10.9 - UNSPECIFIED ABDOMINAL PAIN SNOMED Code(s): 04760093 (2) Leukocytosis Narrative/Plan: 28-year-old male presents to Hospital with increasing abdominal pain not responding to oral medication she had at home. She is awake status post her laparoscopic converted to open abdominal procedure with failure to completely debulk tumor with evidence of multiple adhesions. Presents with increasing abdominal pain nausea and early satiety and feeling quite poorly overall. Pain control is marginal at is some Toradol to see if that cannot improve her discomforts. As far as antimicrobial therapy pending cultures given the stability leukocytosis and high risk for sepsis piperacillin tazobactam in addition to vancomycin are being utilized. Cultures were further help direct rapid de- escalation if possible. Oncology consult is in process and await further information from them regarding overall treatment plan has been outlined by her primary oncologist in the [place] area. The WBC will be tracked to ensure that it is improving with therapeutic intervention. 06/04/2018 is of the patient's status his markedly worsened. She has acute renal failure. Antibiotic therapy is adjusted upon consultation with pharmacy to the current renal dose.vancomycin has been discontinued. No positive cultures are noted at this point in time.she continues to have a leukocytosis that is multifactorial in counseling the Zosyn will continue for now. 06/06/2018 patient seems a bit more comfortable. Her abdominal pain seems to be better controlled. He has received 3 cycles of hemodialysis for acute renal failure that appears to be multifactorial including including recent surgery, nonsteroidals, and synergy between vancomycin and Zosyn. Now is on only Zosyn which is dose adjusted. The patient has what appears to be somewhat rapidly progressive disease from her metastatic ovarian cancer. Goal will be for her to be transferred to the surgical gynecological oncologist where she had her prior surgery for further evaluation and intervention as is possible. Current Visit: Yes Status: Acute Code(s): D72.829 - ELEVATED WHITE BLOOD CELL COUNT, UNSPECIFIED SNOMED Code(s): 345771571
[2018-06-07] MEDS: HYDROmorphone 2 MG TAB PO PRN ×4 (00:44→14:21)
[2018-06-07] MEDS: ONDANSETRON 4 MG/2 ML VIAL IVP PRN ×4 (00:44→15:38)
[2018-06-07 05:52] LABS: Partial Thromboplastin Time 26.1 sec (22.0-30.0); Prothrombin Time 10.7 sec (9.0-12.0)
[2018-06-07 06:03] LABS: Albumin 3.1 g/dL (3.5-5.0); Calcium 9.6 mg/dL (8.4-10.2); Magnesium 2.3 mg/dL (1.6-2.3); Phosphorus 4.4 mg/dL (2.5-4.5); Potassium 4.8 mmol/L (3.5-5.1); Total Bilirubin 5.2 mg/dL (0.2-1.3); Total Protein 6.6 g/dL (6.3-8.2)
[2018-06-07 06:25] LABS: HGB 7.5 gm/dL (11.4-16.0); Hypochromasia Marked; MCH 27.6 pg (25.0-35.0); MCV 92.1 fL (80.0-100.0); Mean Platelet Volume 9.1; Platelet Count 546 k/uL (150-450); RBC 2.71 m/uL (3.80-5.40); RDW 14.1 % (11.5-15.5); WBC 25.4 k/uL (3.8-10.6)
[2018-06-07 06:47] LABS: Band Neutrophils % 5 %; Lymphocytes # (M) 3.05 k/uL (1.0-4.8); Metamyelocytes # (M) 0.76 k/uL (0); Metamyelocytes % 3 %; Monocytes # (M) 2.79 k/uL (0-1.0); Neutrophils % (M) 69 %; Nucleated Red Blood Cells 0 /100 WBC (0-0); Total Cells Counted 100
[2018-06-07 06:48] LABS: Polychromasia Present; Target Cells Present
[2018-06-07 07:24] LABS: Glucose,Whole Blood 69 mg/dL (75-99)
[2018-06-07 07:31] LABS: Glucose,Whole Blood 66 mg/dL (75-99)
[2018-06-07] MEDS ORDERED: DEXTROSE 50%-WATER 50 ML SYRINGE IVP STA ×2 (08:00→13:53)
[2018-06-07 08:07] LABS: Glucose,Whole Blood 92 mg/dL (75-99)
[2018-06-07] MEDS: PIPERACILLIN-TAZOBACTAM 3.375 GM in SODIUM CHLORIDE 0.9% 100 ML IVPB SCH (08:09)
[2018-06-07] MEDS: HEPARIN SODIUM,PORCINE 5,000 UNIT/ML 1 ML VIAL SQ SCH (08:12)
[2018-06-07] MEDS: PANTOPRAZOLE 40 MG TABLET PO SCH (08:12)
[2018-06-07] MEDS: METOCLOPRAMIDE 5 MG/ML 2 ML VIAL IVP PRN ×2 (08:16→14:21)
--- NOTE | 2018-06-07 08:32 | P.PN ---
Subjective Principal diagnosis: This continue present 28-year-old white female essentially admitted for ovarian cancer and systemic inflammatory response. She is complaining of significant anuria dysuria. This a continue process on a 20-year-old white female with history of ovarian cancer which is metastatic who was admitted for fever and has developed acute renal failure on dialysis. Appreciate multiple consultants input including nephrology, infectious disease with oncology. At this time, she resting comfortably. Nursing staff started nausea. REglan has been addeed Objective - Vital Signs Vital signs: Vital Signs Temp 98.6 F 06/07/18 00:00 Pulse 103 H 06/07/18 07:00 Resp 16 06/07/18 07:00 BP 120/59 06/07/18 07:00 Pulse Ox 97 06/07/18 07:45 Intake & Output 06/06/18 06/07/18 06/07/18 18:59 06:59 18:59 Intake Total 500 220 10 Output Total 0 10 Balance 500 210 10 Weight 97.7 kg Intake: IV 500 220 10 Dextrose 5% in Water 1, 350 000 ml @ 50 mls/hr IV . Q23H DIANE with Sodium Bicarb (1 Meq/ml) 150 ml Rx#:[id number] Piperacillin-Tazobactam 3 100 100 .375 gm In Sodium Chloride 0.9% 100 ml @ 25 mls/hr IVPB Q12HR DIANE Rx #:[id number] Sodium Chloride 0.9% 10 50 120 10 mls/hr KVO Output: Urine 0 10 Other: Voiding Method Toilet Toilet # Voids 0 - Constitutional General appearance: Present: average body habitus - EENT Eyes: Absent: abnormal pupil - Respiratory Respiratory: bilateral: diminished - Cardiovascular Heart rate: 106 (Slightly tachycardic this morning) Rhythm: regular Heart sounds: normal: S1, S2 - Gastrointestinal General gastrointestinal: Present: soft. Absent: tenderness - Integumentary Integumentary: Present: normal. Absent: rash - Psychiatric Psychiatric: Present: A&O x's 3. Absent: appropriate affect - Labs CBC & Chem 7: 06/07/18 05:03 06/07/18 05:03 Labs: Abnormal Lab Results - Last 24 Hours (Table) 06/05/18 06/07/18 06/07/18 Range/Units 16:42 05:03 05:03 WBC 25.4 H (3.8-10.6) k/uL RBC 2.71 L (3.80-5.40) m/uL Hgb 7.5 L (11.4-16.0) gm/dL Hct 25.0 L (34.0-46.0) % MCHC 30.0 L (31.0-37.0) g/dL Plt Count 546 H (150-450) k/uL Neutrophils # (Manual) 18.70 H (1.3-7.7) k/uL Monocytes # (Manual) 2.79 H (0-1.0) k/uL Metamyelocytes # (Man) 0.76 H (0) k/uL Haptoglobin 376.0 H (31.2-198.0) mg/dL Sodium 133 L (137-145) mmol/L Chloride 97 L (98-107) mmol/L Carbon Dioxide 18 L (22-30) mmol/L BUN 29 H (7-17) mg/dL Creatinine 3.49 H (0.52-1.04) mg/dL Glucose 70 L (74-99) mg/dL POC Glucose (mg/dL) (75-99) mg/dL Total Bilirubin 5.2 H (0.2-1.3) mg/dL AST 397 H (14-36) U/L ALT 100 H (9-52) U/L Alkaline Phosphatase 456 H (38-126) U/L Albumin 3.1 L (3.5-5.0) g/dL 06/07/18 06/07/18 Range/Units 07:11 07:29 WBC (3.8-10.6) k/uL RBC (3.80-5.40) m/uL Hgb (11.4-16.0) gm/dL Hct (34.0-46.0) % MCHC (31.0-37.0) g/dL Plt Count (150-450) k/uL Neutrophils # (Manual) (1.3-7.7) k/uL Monocytes # (Manual) (0-1.0) k/uL Metamyelocytes # (Man) (0) k/uL Haptoglobin (31.2-198.0) mg/dL Sodium (137-145) mmol/L Chloride (98-107) mmol/L Carbon Dioxide (22-30) mmol/L BUN (7-17) mg/dL Creatinine (0.52-1.04) mg/dL Glucose (74-99) mg/dL POC Glucose (mg/dL) 69 L 66 L (75-99) mg/dL Total Bilirubin (0.2-1.3) mg/dL AST (14-36) U/L ALT (9-52) U/L Alkaline Phosphatase (38-126) U/L Albumin (3.5-5.0) g/dL Microbiology - Last 24 Hours (Table) 06/02/18 12:24 Blood Culture - Preliminary Blood No Growth after 96 hours 06/02/18 12:29 Blood Culture - Preliminary Blood No Growth after 96 hours Assessment and Plan (1) Acute renal failure Current Visit: Yes Status: Acute Priority: High Code(s): N17.9 - ACUTE KIDNEY FAILURE, UNSPECIFIED SNOMED Code(s): 05085457 (2) Abdominal pain Current Visit: Yes Status: Acute Code(s): R10.9 - UNSPECIFIED ABDOMINAL PAIN SNOMED Code(s): 66522830 (3) Ovarian cancer Current Visit: Yes Status: Chronic Priority: High Code(s): C56.9 - MALIGNANT NEOPLASM OF UNSPECIFIED OVARY SNOMED Code(s): 807019713 (4) SIRS (systemic inflammatory response syndrome) Current Visit: Yes Status: Acute Code(s): R65.10 - SIRS OF NON-INFECTIOUS ORIGIN W/O ACUTE ORGAN DYSFUNCTION SNOMED Code(s): 616185273 Plan: Continue current regimen of treatment. Transferred to oncology [address] Ocampo's group covering for the weekend. Follow renal function which is improved with dialysis. Check CBC and CMP in a.m. Time with Patient: Less than 30
--- NOTE | 2018-06-07 09:00 | XR ---
EXAMINATION TYPE: XR chest 1V DATE OF EXAM: 06/07/2018 COMPARISON: 06/06/2018 HISTORY: Abnormal x-ray TECHNIQUE: Single frontal view of the chest is obtained. FINDINGS: Bilateral consolidation and pleural effusion stable. Heart size stable. Left-sided PICC li ne appears in good position. Interstitium stable. IMPRESSION: 1. Bilateral infiltrate and pleural effusion stable. Correlate for pneumonia versus pulmonary edema.
[2018-06-07] MEDS: POLYETHYLENE GLYCOL 3350 17 GM POWD.PACK PO SCH (10:31)
[2018-06-07] MEDS: DOCUSATE 100 MG CAP PO SCH (10:32)
[2018-06-07] MEDS: SENNOSIDES-DOCUSATE SODIUM 1 EACH TAB PO SCH (10:32)
--- NOTE | 2018-06-07 10:39 | P.PN ---
Subjective Patient is seen in follow-up for acute kidney injury. Patient remains oliguric. She was started on hemodialysis on June 04. Etiology is vancomycin toxicity. She was dialyzed last 3 days in a row. Oral intake is poor. Denies chest pain or shortness of breath. Feels tired. Hemodynamically stable. Vital signs are stable. General: The patient appeared well nourished and normally developed. HEENT: Head exam is unremarkable. Neck is without jugular venous distension. LUNGS: Lungs are clear to auscultation and percussion. Breath sounds decreased. HEART: Rate and Rhythm are regular. First and second heart sounds normal. No murmurs, rubs or gallops. ABDOMEN: Abdominal exam reveals normal bowel sounds. Non-tender and non- distended. No evidence of peritonitis. EXTREMITITES: Trace edema. Objective - Vital Signs Vital signs: Vital Signs Temp 98.6 F 06/07/18 00:00 Pulse 103 H 06/07/18 07:00 Resp 16 06/07/18 07:00 BP 120/59 06/07/18 07:00 Pulse Ox 97 06/07/18 07:45 Intake & Output 06/06/18 06/07/18 06/07/18 18:59 06:59 18:59 Intake Total 500 220 10 Output Total 0 10 Balance 500 210 10 Weight 97.7 kg 97.7 kg Intake: IV 500 220 10 Dextrose 5% in Water 1, 350 000 ml @ 50 mls/hr IV . Q23H DIANE with Sodium Bicarb (1 Meq/ml) 150 ml Rx#:[id number] Piperacillin-Tazobactam 3 100 100 .375 gm In Sodium Chloride 0.9% 100 ml @ 25 mls/hr IVPB Q12HR DIANE Rx #:[id number] Sodium Chloride 0.9% 10 50 120 10 mls/hr KVO Output: Urine 0 10 Other: Voiding Method Toilet Toilet # Voids 0 - Labs CBC & Chem 7: 06/07/18 05:03 06/07/18 05:03 Labs: Abnormal Lab Results - Last 24 Hours (Table) 06/05/18 06/07/18 06/07/18 Range/Units 16:42 05:03 05:03 WBC 25.4 H (3.8-10.6) k/uL RBC 2.71 L (3.80-5.40) m/uL Hgb 7.5 L (11.4-16.0) gm/dL Hct 25.0 L (34.0-46.0) % MCHC 30.0 L (31.0-37.0) g/dL Plt Count 546 H (150-450) k/uL Neutrophils # (Manual) 18.70 H (1.3-7.7) k/uL Monocytes # (Manual) 2.79 H (0-1.0) k/uL Metamyelocytes # (Man) 0.76 H (0) k/uL Haptoglobin 376.0 H (31.2-198.0) mg/dL Sodium 133 L (137-145) mmol/L Chloride 97 L (98-107) mmol/L Carbon Dioxide 18 L (22-30) mmol/L BUN 29 H (7-17) mg/dL Creatinine 3.49 H (0.52-1.04) mg/dL Glucose 70 L (74-99) mg/dL POC Glucose (mg/dL) (75-99) mg/dL Total Bilirubin 5.2 H (0.2-1.3) mg/dL AST 397 H (14-36) U/L ALT 100 H (9-52) U/L Alkaline Phosphatase 456 H (38-126) U/L Albumin 3.1 L (3.5-5.0) g/dL 06/07/18 06/07/18 Range/Units 07:11 07:29 WBC (3.8-10.6) k/uL RBC (3.80-5.40) m/uL Hgb (11.4-16.0) gm/dL Hct (34.0-46.0) % MCHC (31.0-37.0) g/dL Plt Count (150-450) k/uL Neutrophils # (Manual) (1.3-7.7) k/uL Monocytes # (Manual) (0-1.0) k/uL Metamyelocytes # (Man) (0) k/uL Haptoglobin (31.2-198.0) mg/dL Sodium (137-145) mmol/L Chloride (98-107) mmol/L Carbon Dioxide (22-30) mmol/L BUN (7-17) mg/dL Creatinine (0.52-1.04) mg/dL Glucose (74-99) mg/dL POC Glucose (mg/dL) 69 L 66 L (75-99) mg/dL Total Bilirubin (0.2-1.3) mg/dL AST (14-36) U/L ALT (9-52) U/L Alkaline Phosphatase (38-126) U/L Albumin (3.5-5.0) g/dL Microbiology - Last 24 Hours (Table) 06/02/18 12:24 Blood Culture - Preliminary Blood No Growth after 96 hours 06/02/18 12:29 Blood Culture - Preliminary Blood No Growth after 96 hours Assessment and Plan Plan: Assessment: 1. Oliguric acute kidney injury secondary to ATN secondary to vancomycin toxicity. Additionally the patient received IV contrast dye on May 31 for CTA. Baseline creatinine is near 1. No evidence of hydronephrosis noted on imaging. Started on hemodialysis 06/04/2018. 2. Hyperkalemia secondary to acute kidney injury and metabolic acidosis. Better postdialysis. 3. Metabolic acidosis secondary to acute kidney injury. 4. Recently diagnosed ovarian cancer. Patient not on chemotherapy yet. 5. Hypercalcemia secondary to malignancy. Status post pamidronate on June 04. Better. 6. Hyperuricemia status post rasburicase on June 03. Resolved. 7. Mild hyperphosphatemia secondary to acute kidney injury. Phosphorus level 4.4 today. 8. Hyponatremia secondary to acute kidney injury. Better postdialysis. Plan: Next hemodialysis tomorrow. Hold today. Continue to monitor renal function and urine output closely. Add oral sodium bicarbonate. Potential discharge to [facility] today where her primary oncology team is.
[2018-06-07] MEDS ORDERED: SODIUM BICARBONATE TAB 650 MG TAB PO SCH (10:45)
[2018-06-07] MEDS ORDERED: HYDROmorphone 1 MG/ML 1 ML SYRINGE IVP PRN (11:09)
[2018-06-07 12:03] VITALS: TEMP 98.4
[2018-06-07 12:17] LABS: Glucose,Whole Blood 71 mg/dL (75-99)
--- NOTE | 2018-06-07 12:27 | P.PN ---
Subjective Progress Note Date: 06/07/18 Principal diagnosis: high grade metastatic ovarian malignancy Pt seen today in f/u with multiple family members at bedside. Pt has persistent upper abd discomfort, no appetite, she continues on dialysis Objective - Vital Signs Vital signs: Vital Signs Temp 98.4 F 06/07/18 12:00 Pulse 111 H 06/07/18 12:00 Resp 15 06/07/18 12:00 BP 127/61 06/07/18 12:00 Pulse Ox 96 06/07/18 12:00 Intake & Output 06/06/18 06/07/18 06/07/18 18:59 06:59 18:59 Intake Total 500 220 160 Output Total 0 10 0 Balance 500 210 160 Weight 97.7 kg 97.7 kg Intake: IV 500 220 160 Dextrose 5% in Water 1, 350 000 ml @ 50 mls/hr IV . Q23H DIANE with Sodium Bicarb (1 Meq/ml) 150 ml Rx#:[id number] Piperacillin-Tazobactam 3 100 100 100 .375 gm In Sodium Chloride 0.9% 100 ml @ 25 mls/hr IVPB Q12HR DIANE Rx #:[id number] Sodium Chloride 0.9% 10 50 120 60 mls/hr KVO Output: Urine 0 10 0 Other: Voiding Method Toilet Toilet Toilet # Voids 0 - Exam WD female, pale, A&O x 4, respirations even and unlabored, visible abd distension, mild BLE swelling - Constitutional General appearance: Present: average body habitus, cooperative, mild distress - EENT Eyes: Present: anicteric sclerae - Labs CBC & Chem 7: 06/07/18 05:03 06/07/18 05:03 Labs: Abnormal Lab Results - Last 24 Hours (Table) 06/07/18 06/07/18 06/07/18 Range/Units 05:03 05:03 07:11 WBC 25.4 H (3.8-10.6) k/uL RBC 2.71 L (3.80-5.40) m/uL Hgb 7.5 L (11.4-16.0) gm/dL Hct 25.0 L (34.0-46.0) % MCHC 30.0 L (31.0-37.0) g/dL Plt Count 546 H (150-450) k/uL Neutrophils # (Manual) 18.70 H (1.3-7.7) k/uL Monocytes # (Manual) 2.79 H (0-1.0) k/uL Metamyelocytes # (Man) 0.76 H (0) k/uL Sodium 133 L (137-145) mmol/L Chloride 97 L (98-107) mmol/L Carbon Dioxide 18 L (22-30) mmol/L BUN 29 H (7-17) mg/dL Creatinine 3.49 H (0.52-1.04) mg/dL Glucose 70 L (74-99) mg/dL POC Glucose (mg/dL) 69 L (75-99) mg/dL Total Bilirubin 5.2 H (0.2-1.3) mg/dL AST 397 H (14-36) U/L ALT 100 H (9-52) U/L Alkaline Phosphatase 456 H (38-126) U/L Albumin 3.1 L (3.5-5.0) g/dL 06/07/18 06/07/18 Range/Units 07:29 12:13 WBC (3.8-10.6) k/uL RBC (3.80-5.40) m/uL Hgb (11.4-16.0) gm/dL Hct (34.0-46.0) % MCHC (31.0-37.0) g/dL Plt Count (150-450) k/uL Neutrophils # (Manual) (1.3-7.7) k/uL Monocytes # (Manual) (0-1.0) k/uL Metamyelocytes # (Man) (0) k/uL Sodium (137-145) mmol/L Chloride (98-107) mmol/L Carbon Dioxide (22-30) mmol/L BUN (7-17) mg/dL Creatinine (0.52-1.04) mg/dL Glucose (74-99) mg/dL POC Glucose (mg/dL) 66 L 71 L (75-99) mg/dL Total Bilirubin (0.2-1.3) mg/dL AST (14-36) U/L ALT (9-52) U/L Alkaline Phosphatase (38-126) U/L Albumin (3.5-5.0) g/dL Microbiology - Last 24 Hours (Table) 06/02/18 12:24 Blood Culture - Preliminary Blood No Growth after 96 hours 06/02/18 12:29 Blood Culture - Preliminary Blood No Growth after 96 hours Assessment and Plan (1) Acute renal failure Current Visit: Yes Status: Acute Priority: High Code(s): N17.9 - ACUTE KIDNEY FAILURE, UNSPECIFIED SNOMED Code(s): 90851972 (2) Ovarian cancer Current Visit: Yes Status: Chronic Priority: High Code(s): C56.9 - MALIGNANT NEOPLASM OF UNSPECIFIED OVARY SNOMED Code(s): 460655183 (3) Iron deficiency Current Visit: Yes Status: Acute Priority: Medium Code(s): E61.1 - IRON DEFICIENCY SNOMED Code(s): 35046311 Plan: Pt condition remains critical. 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 Pt and family are in agreement with transfer Have worked with Case mgmt, spoken to Dr. Villalta, made contact with [facility], spoke to Dr. Prince's Resident. Facilitating pending transfer. Time with Patient: Greater than 30 (1hour spent on care, >50% counseling and coordinating care)
--- NOTE | 2018-06-07 13:20 | P.PN ---
Subjective Progress Note Date: 06/07/18 Principal diagnosis: Metastatic ovarian cancer This is a 28-year-old female with known history of ovarian cancer, diagnosed back in July of 2012. With grade 2 endometrioid ovarian carcinoma, underwent exploratory laparotomy right ovarian cystectomy, and lysis of adhesions on June 062012. Patient underwent adjuvant chemotherapy with 6 cycles of Taxol and carboplatin and she did well and remained in surveillance until recently. She was found to have suspicious cyst on her left ovary underwent exploratory laparotomy and she was advised to undergo neoadjuvant treatment with chemotherapy and total abdominal hysterectomy for what seemed to be residual uterus. Apparently her recent surgery was done at [facility] in [place]. Patient presented this time on 05/31/2018 with mostly complaints of shortness of breath and vague chest pain. Pain was pleuritic in nature, and she had a CT angiogram which came back negative for thromboembolic disease, but unfortunately she was found to have significant metastatic disease to the lungs. Actually her recurrent disease was documented on her last surgery from 05/21/2018. Patient was admitted and she was seen by many consultants since admission. Over the last few days since admission, there has been many issues including the fact that the patient clearly has evidence of metastatic ovarian cancer, she developed acute kidney injury, felt to be related to vancomycin could also be related to IV contrast media which she received for CT angiogram of the chest. Patient required dialysis catheter placement, and now she is on hemodialysis. She was confirmed to have possible metastatic disease to the liver and to the lungs, she was found to have evidence of bilateral pleural effusions, and likely fluid overload related to her acute kidney injury and renal failure. Patient also had issues related to epistaxis and hematuria, apparently there was a concern about possible DIC. The initial workup for DIC including platelets, pro time, PTT, and fibrinogen level clearly did not point to DIC. Her epistaxis did resolve on its own overnight. During my evaluation, the patient was complaining of generalized weakness, fatigue, some shortness of breath, she is on few liters nasal cannula , and O2 saturation is 94%. She is hemodynamically stable, and she has no active bleeding whatsoever. She does have a right femoral dialysis catheter in place. And she has a PICC line. Did not require any significant intervention since transfer to the ICU. Her hemoglobin was noted to be 7.6. Patient was reevaluated today on 06/07/2018, remains in the ICU, hemodynamically stable, feels generally weak and tired. Her chest x-ray is showing definite improvement in her fluid status and interstitial edema. Her labs were all reviewed, she does have leukocytosis with WBC count of 25.4 hemoglobin is 7.5 platelets are 546. Pro time and INR were normal. PTT was normal. Electrolytes are normal BUN is 29 creatinine is 3.49. Her liver enzymes were noted. Patient is now requesting transferred to her oncologist at [facility]. I was planning to transfer the patient out of the ICU to oncology, however if the patient is going to be transferred to another hospital, she could be transferred directly out of the ICU to a regular medical floor/ oncology floor in another institution. Basically the patient wanted to have a second opinion from her original oncologist. Objective - Vital Signs Vital signs: Vital Signs Temp 98.4 F 06/07/18 12:00 Pulse 106 H 06/07/18 13:00 Resp 15 06/07/18 13:00 BP 130/66 06/07/18 13:00 Pulse Ox 97 06/07/18 13:00 Intake & Output 06/06/18 06/07/18 06/07/18 18:59 06:59 18:59 Intake Total 500 220 170 Output Total 0 10 0 Balance 500 210 170 Weight 97.7 kg 97.7 kg Intake: IV 500 220 170 Dextrose 5% in Water 1, 350 000 ml @ 50 mls/hr IV . Q23H DIANE with Sodium Bicarb (1 Meq/ml) 150 ml Rx#:[id number] Piperacillin-Tazobactam 3 100 100 100 .375 gm In Sodium Chloride 0.9% 100 ml @ 25 mls/hr IVPB Q12HR DIANE Rx #:[id number] Sodium Chloride 0.9% 10 50 120 70 mls/hr KVO Output: Urine 0 10 0 Other: Voiding Method Toilet Toilet Toilet # Voids 0 - Exam Physical Exam revealed a 28-year-old female, in no distress, pale looking. No icterus. Head: Atraumatic, normocephalic. HEENT:[Neck is supple.] [No neck masses.] [No thyromegaly.] [No JVD.] PERRLA, EOMI, moist mucous membranes. Chest: [Diminished breath sounds and crackles at the bases. Cardiac Exam: [Normal S1 and S2, no S3 gallop, no murmur.] Abdomen: [Soft, nontender, no megaly, no rebound, no guarding, normal bowel sounds.] Extremities: [No clubbing, no edema, no cyanosis.] Neurological Exam: [No focal neurologic deficit. Psychiatric: Depressed mood and blunted affect, normal mental status Skin: No rashes] - Labs CBC & Chem 7: 06/07/18 05:03 06/07/18 05:03 Labs: Abnormal Lab Results - Last 24 Hours (Table) 06/07/18 06/07/18 06/07/18 Range/Units 05:03 05:03 07:11 WBC 25.4 H (3.8-10.6) k/uL RBC 2.71 L (3.80-5.40) m/uL Hgb 7.5 L (11.4-16.0) gm/dL Hct 25.0 L (34.0-46.0) % MCHC 30.0 L (31.0-37.0) g/dL Plt Count 546 H (150-450) k/uL Neutrophils # (Manual) 18.70 H (1.3-7.7) k/uL Monocytes # (Manual) 2.79 H (0-1.0) k/uL Metamyelocytes # (Man) 0.76 H (0) k/uL Sodium 133 L (137-145) mmol/L Chloride 97 L (98-107) mmol/L Carbon Dioxide 18 L (22-30) mmol/L BUN 29 H (7-17) mg/dL Creatinine 3.49 H (0.52-1.04) mg/dL Glucose 70 L (74-99) mg/dL POC Glucose (mg/dL) 69 L (75-99) mg/dL Total Bilirubin 5.2 H (0.2-1.3) mg/dL AST 397 H (14-36) U/L ALT 100 H (9-52) U/L Alkaline Phosphatase 456 H (38-126) U/L Albumin 3.1 L (3.5-5.0) g/dL 06/07/18 06/07/18 Range/Units 07:29 12:13 WBC (3.8-10.6) k/uL RBC (3.80-5.40) m/uL Hgb (11.4-16.0) gm/dL Hct (34.0-46.0) % MCHC (31.0-37.0) g/dL Plt Count (150-450) k/uL Neutrophils # (Manual) (1.3-7.7) k/uL Monocytes # (Manual) (0-1.0) k/uL Metamyelocytes # (Man) (0) k/uL Sodium (137-145) mmol/L Chloride (98-107) mmol/L Carbon Dioxide (22-30) mmol/L BUN (7-17) mg/dL Creatinine (0.52-1.04) mg/dL Glucose (74-99) mg/dL POC Glucose (mg/dL) 66 L 71 L (75-99) mg/dL Total Bilirubin (0.2-1.3) mg/dL AST (14-36) U/L ALT (9-52) U/L Alkaline Phosphatase (38-126) U/L Albumin (3.5-5.0) g/dL Microbiology - Last 24 Hours (Table) 06/02/18 12:24 Blood Culture - Preliminary Blood No Growth after 96 hours 06/02/18 12:29 Blood Culture - Preliminary Blood No Growth after 96 hours Assessment and Plan Assessment: Impression: 1 metastatic ovarian cancer 2 acute kidney injury, could be secondary to vancomycin or contrast media or possibly both. Patient is presently on hemodialysis. 3 acute pulmonary edema secondary to acute renal failure, requiring hemodialysis /ultrafiltration. 4 multiple pulmonary nodules related to metastatic ovarian cancer unless proven otherwise. 5 acute epistaxis, no evidence of DIC, resolved. 6 hypercalcemia secondary to malignancy status post pamidronate treatment. 7 hyperuricemia and hyperphosphatemia addressed accordingly. 8 hyperkalemia secondary to acute kidney injury, resolved postdialysis. 9 abnormal liver enzymes, possible metastatic disease to the liver. Suspected based on the ultrasound of the liver. 10 leg swelling noted with right lower extremity a bit more swollen than the left lower extremity, venous Doppler was ordered and it was negative for deep vein thrombosis. Recommendation: agree with the present treatment plan, had another discussion with the patient and her family at bedside, I was planning to transfer the patient to oncology today, however the patient and her raise concern about transferring her to [facility] in [place]. The nurses will notify the admitting physician, and then hopefully this will take place sometime today. Again overall prognosis is extremely poor and guarded, and the patient remains quite ill. Time with Patient: Less than 30
[2018-06-07 14:40] LABS: Glucose,Whole Blood 74 mg/dL (75-99)
[2018-06-07 15:01] VITALS: BP 117/60; PULSE 110; RESP 15
[2018-06-07] MEDS ORDERED: PIPERACILLIN-TAZOBACTAM 3.375 GM in SODIUM CHLORIDE 0.9% 100 ML IVPB SCH (16:00)
== END 2018-06-07 15:55 | disposition short-term general hospital (02) | DRG 840 ==
LOC: EC 04:53 → 3SCARD 11:18 → 2SICU 06-05 22:16
PROVIDERS: ADMIT Family Medicine; ATTEND Family Medicine
PROC: 5A1D70Z Performance of Urinary Filtration, Intermittent, Less than 6 Hours Per Day (ICD-10-PCS; 2018-06-04)
PROC: 06HY33Z Insertion of Infusion Device into Lower Vein, Percutaneous Approach (ICD-10-PCS; principal; 2018-06-04 08:36)
PROC: 02HV33Z Insertion of Infusion Device into Superior Vena Cava, Percutaneous Approach (ICD-10-PCS; 2018-06-05)
PROC: 5A1D70Z Performance of Urinary Filtration, Intermittent, Less than 6 Hours Per Day (ICD-10-PCS; 2018-06-05)
PROC: 5A1D70Z Performance of Urinary Filtration, Intermittent, Less than 6 Hours Per Day (ICD-10-PCS; 2018-06-06)
DX: C77.1 Secondary and unspecified malignant neoplasm of intrathoracic lymph nodes (principal); N17.0 Acute kidney failure with tubular necrosis; J81.0 Acute pulmonary edema; K76.7 Hepatorenal syndrome; C78.00 Secondary malignant neoplasm of unspecified lung; C78.7 Secondary malignant neoplasm of liver and intrahepatic bile duct; E87.2 Acidosis; K56.51 Intestinal adhesions [bands], with partial obstruction; R65.10 Systemic inflammatory response syndrome (SIRS) of non-infectious origin without acute organ dysfunction; E87.1 Hypo-osmolality and hyponatremia; R18.8 Other ascites; C56.2 Malignant neoplasm of left ovary; C77.2 Secondary and unspecified malignant neoplasm of intra-abdominal lymph nodes; E83.39 Other disorders of phosphorus metabolism; E11.22 Type 2 diabetes mellitus with diabetic chronic kidney disease; E83.52 Hypercalcemia; E87.5 Hyperkalemia; T36.8X5A Adverse effect of other systemic antibiotics, initial encounter; T50.8X5A Adverse effect of diagnostic agents, initial encounter; N14.1 Nephropathy induced by other drugs, medicaments and biological substances; B37.3 Candidiasis of vulva and vagina; N18.9 Chronic kidney disease, unspecified; E61.1 Iron deficiency; K59.00 Constipation, unspecified; E66.9 Obesity, unspecified; R04.0 Epistaxis; D64.9 Anemia, unspecified; E79.0 Hyperuricemia without signs of inflammatory arthritis and tophaceous disease; F41.9 Anxiety disorder, unspecified; F32.9 Major depressive disorder, single episode, unspecified; Z68.37 Body mass index [BMI] 37.0-37.9, adult; Z71.3 Dietary counseling and surveillance; Z79.84 Long term (current) use of oral hypoglycemic drugs; Z79.899 Other long term (current) drug therapy; Z85.43 Personal history of malignant neoplasm of ovary; Z90.710 Acquired absence of both cervix and uterus; Z90.721 Acquired absence of ovaries, unilateral; Z86.718 Personal history of other venous thrombosis and embolism; Z92.21 Personal history of antineoplastic chemotherapy; Z99.2 Dependence on renal dialysis; Z88.8 Allergy status to other drugs, medicaments and biological substances; Z91.040 Latex allergy status
CPT/HCPCS: 36415; 36558; 36573; 70553; 71045; 71275; 74177; 76700; 76770; 76857; 77001; 80048; 80053; 80074; 80076; 80202; 81001; 81025; 82330; 82550; 82553; 82607; 82728; 82746; 83010; 83540; 83550; 83615; 83735; 84100; 84132; 84484; 84550; 85025; 85379; 85384; 85610; 85730; 86022; 86304; 86880; 87040; 90935; 93005; 93970; 96365; 96366; 96368; 96375; 96376; 99285